=== PATIENT | male | born 1990 | race Caucasian/White ===

== ENCOUNTER → 2016-12-23 | Outpatient (REF) | payer OTHER | LOC: M SFHCLERA 20:39 | PROVIDERS: ATTEND Physician Assistant | DX: R30.0 Dysuria (principal); R31.9 Hematuria, unspecified ==

== ENCOUNTER 2017-03-13 14:51 | Emergency (ER) | payer OTHER ==
[~2017-03-13] VITALS: Ht 172.7 cm; Wt 68.0 kg
[2017-03-13] MEDS ORDERED: NORCO, ANEXSIA 5/325MG TABLET (HYDROcodone/ACETAMINOPHEN) PO ONE (15:30)
--- NOTE | 2017-03-13 16:22 | REP ---
RIGHT ANKLE SERIES, COMPLETE: 03/13/2017: History: Trauma. Technique: Four views are provided. Findings: There is soft tissue swelling about the anterior ankle. The mortise joint symmetric and preserved with no talar dome osteochondral defect. No visible fracture or avulsion from the distal tibia or fibula. There is a tiny amount of calcification suggested adjacent to the neck of the talus on one of the oblique views. I could not exclude small avulsion. There is no Achilles insertion spur. There are fractures at the base of the metatarsals proximally at the metaphysis for the 2nd, 3rd, and 4th toe with displacement and angulation of the 3rd toe. I could not exclude a Lisfranc fracture dislocation. Impression: 1. Tiny ossific density suggested adjacent to the neck of the talus on the oblique views with soft tissue swelling anterior to the ankle and foot. 2. Proximal metaphyseal fractures 2nd through 4th toes with a fracture and significant displacement of the 3rd metatarsal laterally. Standard foot series is strongly recommended. Signed by Del Lundy MD 03/13/2017 04:58 P
--- NOTE | 2017-03-13 16:33 | REP ---
RIGHT FOOT SERIES COMPLETE: 03/13/2017: COMPARISON: Right ankle series this date, right foot 07/21/2007. CLINICAL HISTORY: Trauma with pain and swelling about the ankle and foot. FINDINGS: There is soft tissue swelling of the mid and distal foot as well as about the hind foot and ankle dorsally. There is a displaced fracture of the proximal metaphysis of the 3rd metatarsal with half shaft with lateral displacement on this proximal head. This is also dorsally displaced. Nondisplaced fractures of the proximal metaphysis of the 2nd and 4th metatarsals are seen. There is a curvilinear lucency along the medial aspect of the first metatarsal at the TMT joint which could be a nondisplaced fracture. The MTP joints, IP joints, phalanges and tarsal bones and their articulations were grossly intact. No heel spurs are seen. No subtalar joint abnormalities. Tiny ossification at the dorsal aspect of the talar neck suggesting small avulsion. IMPRESSION: 1. Transverse displaced fracture of the proximal metaphysis of the 3rd metatarsal with about a half shaft width lateral displacement and dorsal displacement of the distal fragment in relationship to the proximal head of that 3rd metatarsal. 2. Nondisplaced, complete transverse fracture of the 2nd metatarsal metaphysis and incomplete fracture 4th metatarsal metaphysis. There may also be a small corner fracture at the articular aspect of the 1st metatarsal at the TMT joint on one view only. 3. Tiny avulsion over the dorsal aspect of the talus at its neck on the lateral view only. Signed by Del Lundy MD 03/13/2017 04:59 P
[2017-03-13] MEDS ORDERED: PERC5TAB6 PO ×2 (16:38→16:39)
[2017-03-13 16:48] VITALS: BP 152/86
== END 2017-03-13 16:57 | disposition home or self-care (01) ==
LOC: M ED 15:31
DX: S92.331A Displaced fracture of third metatarsal bone, right foot, initial encounter for closed fracture (principal); S92.324A Nondisplaced fracture of second metatarsal bone, right foot, initial encounter for closed fracture; S92.344A Nondisplaced fracture of fourth metatarsal bone, right foot, initial encounter for closed fracture; X50.9XXA Other and unspecified overexertion or strenuous movements or postures, initial encounter; Y92.019 Unspecified place in single-family (private) house as the place of occurrence of the external cause; Y93.89 Activity, other specified; Y99.8 Other external cause status

== ENCOUNTER 2017-03-16 08:57 | Inpatient (IN) | payer OTHER ==
[~2017-03-16] VITALS: Ht 172.7 cm; Wt 68.2 kg
[~2017-03-16 08:57] MED LIST: PERC5TAB6 PO
[2017-03-16 09:58] LABS: METHADONE URINE NEGATIVE (NEGATIVE)
[2017-03-16 10:01] LABS: MEAN CORPUSCULAR HEMOGLOBIN 32.8 pg (27.0-33.0); MEAN CORPUSCULAR VOLUME 91.1 fl (80.0-96.0); RED CELL DISTRIBUTION WIDTH 13.2 % (11.5-14.5); WHITE BLOOD COUNT 6.1 K/mm3 (4.0-10.0)
[2017-03-16 10:09] LABS: ALBUMIN 3.9 GM/DL (3.2-5.2); ALBUMIN/GLOBULIN RATIO 1.18 (1.00-1.93); ALKALINE PHOSPHATASE 87 U/L (45-117); ALT/SGPT 27 U/L (12-78); ANION GAP 9 MEQ/L (8-16); AST/SGOT 23 U/L (15-37); BILIRUBIN,DIRECT < 0.1 MG/DL (0.0-0.2); BILIRUBIN,TOTAL 0.3 MG/DL (0.2-1.0); BLOOD UREA NITROGEN 6 MG/DL (7-18); CALCIUM LEVEL 8.3 MG/DL (8.5-10.1); CARBON DIOXIDE LEVEL 26 MEQ/L (21-32); CHLORIDE LEVEL 106 MEQ/L (98-107); CREATININE FOR GFR 0.79 MG/DL (0.70-1.30); GLOMERULAR FILTRATION RATE > 60.0 (>60); GLUCOSE, FASTING 90 MG/DL (70-105); SODIUM LEVEL 141 MEQ/L (136-145); TOTAL PROTEIN 7.2 GM/DL (6.4-8.2)
--- NOTE | 2017-03-16 11:56 | REP ---
Right ankle series: Four views. History: Trauma. Findings: Four views of the right ankle demonstrate anterolateral swelling. On oblique radiograph, there are two tiny ossific densities adjacent to the anterior and lateral aspect of the talus unchanged from the March 13, 2017 study consistent with chip fractures. The proximal metatarsal fractures are poorly seen due to overlap on lateral radiograph. Ankle mortise is intact. No other ankle fracture is seen. Impression: Tiny chip fracture suspected in the anterolateral talus. Unchanged from March 13, 2017 study. Signed by Jonathan Omalley MD 03/16/2017 01:09 P
[2017-03-16] MEDS ORDERED: NAPROXEN 250 MG TAB PO ONE (15:45)
[2017-03-16] MEDS ORDERED: MOM 30ML SUSPENSION UDC PO PRN (19:30)
[2017-03-16] MEDS ORDERED: traZODone 50 MG TAB PO PRN (19:30)
[2017-03-16] MEDS ORDERED: MAALOX 30 ML SUSP *UDC PO PRN (19:30)
[2017-03-16] MEDS ORDERED: OXAZEPAM 15 MG CAP PO PRN (19:30)
[2017-03-16 20:38] VITALS: BP 129/84
[2017-03-16] MEDS: PERCOCET 5MG/325MG TAB PO PRN (20:38)
[2017-03-16 21:00] VITALS: BP 129/84
[2017-03-17 06:55] VITALS: BP 132/62
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
[2017-03-17] MEDS ORDERED: MUPIROCIN 2% OINT 22 GM TUBE TOP PRN (10:00)
[2017-03-17] MEDS: PERCOCET 5MG/325MG TAB PO PRN ×2 (13:01→18:31)
[2017-03-17 13:33] VITALS: BP 113/60
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
[2017-03-17 18:00] VITALS: BP 155/73
[2017-03-17] MEDS ORDERED: NAPROXEN 250 MG TAB PO SCH (21:00)
[2017-03-17] MEDS: NAPROXEN 250 MG TAB PO SCH (23:50)
[2017-03-18 06:46] VITALS: BP 112/63
--- NOTE | 2017-03-18 09:11 | MHIPNPDOC ---
[facility] Progress Note Progress Note DATE OF SERVICE: 03/18/17 HISTORY: Patient is a 27-year-old male, who who was brought to [facility] ED by police after neighbor discovered patient had knife and took it away from him and patient used car keys to cut himself multiple times to neck while intoxicated and, per ER report, also apparently informed police that he was suicidal. Patient has history of one prior admission in 04/2016 after intentional overdose on benzodiazepines and alcohol. [employer] met with patient today to assess treatment progress on inpatient unit. Patient indicates he is feeling "better," speaks with mildly pressured speech, reports improvement to symptoms of anxiety and depression, denies suicidal and homicidal ideation, denies audiovisual hallucinations, denies urge to engage in self-injurious behavior. [employer] makes attempts to discuss inpatient substance abuse treatment with patient who indicates he does not have a substance abuse problem but is willing to go to [facility] outpatient, indicates he is unwilling to participate in inpatient treatment. Patient is dismissive of brief writer, superficially compliant, minimizes substance abuse problem indicating "weed," which he smokes daily, "is not a drug so I don't have a problem with it." Patient denies symptoms of craving or withdrawal. Patient is attending groups, reports improvement to energy level, concentration and focus, indicates appetite is stable, and denies challenges with sleep. Patient has been noncompliant with instructions to keep foot elevated, reports increasing pain, was encouraged to follow instructions at PA who has evaluated. 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 Nursing was made aware of patient report of increasing pain level and was asked to ensure that PA is aware patient's status. VITALS: See below NEW TEST RESULTS: No new results PAST MEDICAL/SURGICAL HISTORY: Patient currently has fractured right foot and uses Aircast, ambulates with crutches. Patient denies history of chronic health issues, denies history of seizure or head injury. Labs on admission indicate low RBC, Hgb, HCT, BUN, calcium UDS positive for amphetamine, cocaine, cannabinoids, denies craving or withdrawal symptoms EtOH 0.169 EKG pending CURRENT MEDICATIONS: See below, patient is declining psychotropic medications MENTAL STATUS EXAMINATION: General appearance: Patient is a 27-year-old male who is generally cooperative but remains guarded and evasive, makes poor eye contact, appears disheveled, dressed in hospital clothing, ambulates with crutches due to fractured right foot, exhibits steady gait with crutches, appears stated age. Speech: Mildly pressured, normal rhythm, loud volume at times, spontaneous, coherent Thought processes: Linear, goal-directed, generally logical Thought content: Rational, logical, no tangentiality or paranoia noted Abstract reasoning and computation: Requires further evaluation Description of associations: Intact Description of abnormal or psychotic thoughts: Denies suicidal or homicidal ideation, denies auditory or visual hallucinations, does not appear to be responding to internal stimuli, does not endorse bizarre or paranoid ideation, denies preoccupation with violence or obsessions Judgment: Poor Insight: Poor Orientation: A and O 3 Recent and remote memory: Appears intact Attention span and concentration: Appear adequate Fund of knowledge: Requires further evaluation Mood: "Fine." Patient appears anxious and depressed, mild mood lability noted Affect: Constricted. DIAGNOSES: Unspecified mood disorder, polysubstance use disorder. Rule out bipolar disorder, rule out substance-induced mood disorder, rule out ADHD. ASSESSMENT: Patient appears to be adjusting to unit, is observed to be up out of bed today, attending groups, visible on unit. Patient reports increasing pain to foot, has not been compliant with foot treatment recommendations, PA has been made aware. Patient remains superficial in his interactions, minimizes events and behavior which led to current hospitalization, minimizes substance abuse, indicates he does not feel he really needs substance abuse treatment. Medication options were again reviewed with patient who is declining psychotropic medications at this time citing lack of need. Patient remains aware he has medication available to him for withdrawal or cravings symptoms which he is denying, and sleep medication if needed. Will continue to monitor patient's response to the inpatient environment and social security specialist will continue to pursue collateral information to begin making discharge plans. Will also evaluate patient for safety, resolution of suicidal ideation, and discharge readiness. Patient states when prepared for discharge he plans to return home with girlfriend. Patient denies need for inpatient substance abuse treatment but is agreeable to participating in outpatient [facility] for psychotherapy and substance abuse treatment, states he is also interested in couples counseling with his girlfriend to address relationship stressors. MANAGEMENT PLAN: Encourage patient to consider taking psychotropic medication to address symptoms Maintain safety precautions Patient to attend groups and participate in unit programming to develop coping strategies Engage patient in discharge planning process and arrange meeting with command to evaluate safe discharge planning when appropriate Patient to follow up with Roberto Sifuentes PCM upon discharge TIME SPENT: 35 minutes Vital Signs Vital Signs Date Time Temp Pulse Resp B/P (MAP) Pulse Ox O2 Delivery O2 Flow Rate FiO2 03/18/17 06:46 97.9 63 16 112/63 (79) 03/16/17 21:00 97 Room Air Current Medications Current Medications Acetaminophen (Tylenol Tab) 650 mg Q6HP PRN PO HEADACHE or DISCOMFORT; Start at 19:30; Stop 04/15/17 at 19:29 Al Hydrox/Mg Hydrox/Simethicone (Mylanta) 30 ml Q4HP PRN PO HEARTBURN/ INDIGESTION; Start 03/16/17 at 19:30; Stop 04/15/17 at 19:29 Home Med (Med Rec Complete!) ASDIRECTED XX ; Start 03/16/17 at 13:15; Stop at 13:16; Status DC Magnesium Hydroxide (Milk Of Magnesia) 30 ml DAILYPRN PRN PO CONSTIPATION; Start 03/16/17 at 19:30; Stop 04/15/17 at 19:29 Mupirocin (Bactroban 2% Ointment) left neck lacerations BID PRN TOP REDNESS/ IRRITATION; Start 03/17/17 at 10:00; Stop 04/16/17 at 09:59 Naproxen (Naprosyn) 500 mg BID PO ; Start 03/17/17 at 21:00; Stop 03/17/17 at 23 :04; Status DC Naproxen (Naprosyn) 500 mg BID PO Last administered on 03/17/17t 23:50; Start 03/17/17 at 21:00; Stop 03/18/17 at 09:30 Oxazepam (Serax) 30 mg Q4HP PRN PO WITHDRAWLS; Start 03/16/17 at 19:30; Stop at 19:29 Oxycodone/ Acetaminophen (Percocet 5mg/ 325mg Tablet) 1 tab TIDP PRN PO MILD/ MODERATE PAIN (PS 1-7) Last administered on 03/17/17 18:31; Start 03/16/17 at 19:30; Stop 5/24/17 at 19:30 Trazodone HCl (Desyrel) 50 mg QHSP PRN PO INSOMNIA; Start 03/16/17 at 19:30; Stop 04/15/17 at 19:29 Allergies Coded Allergies: No Known Drug Allergy (Verified Allergy, Unknown, 03/13/17) Patricia Mata March 18, 2017 09:11
[2017-03-18 12:00] VITALS: BP 137/66
[2017-03-18] MEDS: NAPROXEN 250 MG TAB PO SCH (12:00)
[2017-03-18] MEDS: PERCOCET 5MG/325MG TAB PO PRN (12:00)
[2017-03-18] MEDS: IBUPROFEN 400 MG TAB PO PRN (16:21)
[2017-03-18 18:00] VITALS: BP 129/72
[2017-03-18 21:00] VITALS: BP 128/76
[2017-03-19] MEDS: ACETAMINOPHEN TAB 650MG DOSE (2X325MG) PO PRN ×3 (04:45→22:07)
[2017-03-19] MEDS: IBUPROFEN 400 MG TAB PO PRN ×3 (04:46→22:07)
[2017-03-19 06:50] VITALS: BP 120/58
--- NOTE | 2017-03-19 10:39 | IPNPDOC ---
Subjective Date Seen The patient was seen on 03/19/17. Subjective Chief Complaint/HPI The patient is a 27-year-old male admitted with a reason for visit of Unspecified Depressive D/O. Events since last encounter Requested to reevaluate the patient in regards to right foot edema. Patient with history of right foot fracture. Patient states his pain is controlled. He has not had any increased edema from baseline. He does notice more if he is on his feet for a long time or if he is not elevating the right lower extremity. No erythema, skin lesions. Patient states he continues to wear the Aircast. He uses crutches. Patient with no verbalized complaints. Anticipated discharge tomorrow a.m. Objective Physical Examination General Exam: Positive: Alert Eye Exam: Positive: PERRLA ENT Exam: Positive: Atraumatic Chest Exam: Positive: Clear to auscultation, Normal air movement Heart Exam: Positive: Rate Normal, Regular Rhythm, Normal S1, Normal S2, Negative: Murmurs, Rubs Skin Exam: Positive: Nl turgor and temperature, Other skin issue (mild erythema is noted in the right foot, air cast is applied this time. No erythema or skin lesions. No calf tenderness or swelling.) Assessment /Plan Problems (1) Fracture of metatarsal of right foot, closed Status: Acute Response to Treatment: Stable Problem Text: * Continue Aircast with sock. * Continue ambulation with crutches. * Spoke with Naheed Herrera NP at time of admission, recommendation to continue same and reschedule orthopedic appointment at discharge. * Plan is to reschedule orthopedic appointment for Thursday afternoon or early next week. * Patient is aware. * Discharge planning aware. Plan/VTE VTE Prophylaxis Ordered?: No (ambulatory) VS, I&O, 24H, Fishbone Vital Signs/I&O Vital Signs Date Time Temp Pulse Resp B/P (MAP) Pulse Ox O2 Delivery O2 Flow Rate FiO2 03/19/17 06:50 98.2 62 16 120/58 (78) 03/18/17 18:00 Room Air 03/16/17 21:00 97 Marixa Westbrook March 19, 2017 10:39
--- NOTE | 2017-03-19 12:12 | MHIPNPDOC ---
[facility] Progress Note Progress Note DATE OF SERVICE: 03/19/17 HISTORY: Patient is a 27-year-old male, who who was brought to [facility] ED by police after neighbor discovered patient had knife and took it away from him and patient used car keys to cut himself multiple times to neck while intoxicated and, per ER report, also apparently informed police that he was suicidal. Patient has history of one prior admission in 04/2016 after intentional overdose on benzodiazepines and alcohol. [facility] met with patient today to assess treatment progress on inpatient unit. Patient denies symptoms of anxiety and depression, denies suicidal and homicidal ideation, denies audiovisual hallucinations, denies urge to engage in self-injurious behavior. [facility] again makes attempts to discuss inpatient substance abuse treatment with patient who indicates he does not have a substance abuse problem but is willing to go to [facility] outpatient, indicates he is unwilling to participate in inpatient substance abuse treatment. Patient remains superficially compliant, is minimizing substance abuse last today and indicates he intends to discontinue alcohol and drug use. Patient denies symptoms of craving or withdrawal. Patient is attending groups, reports improvement to energy level, concentration and focus, indicates appetite is stable, and denies challenges with sleep. Patient has been more compliant today with instructions to keep foot elevated, reports reduced pain, was encouraged to follow instructions of PA who has evaluated. Patient was reevaluated today by PA with recommendation for follow-up with orthopedics upon discharge. VITALS: See below NEW TEST RESULTS: No new results PAST MEDICAL/SURGICAL HISTORY: Patient currently has fractured right foot and uses Aircast, ambulates with crutches. Patient denies history of chronic health issues, denies history of seizure or head injury. Labs on admission indicate low RBC, Hgb, HCT, BUN, calcium UDS positive for amphetamine, cocaine, cannabinoids, denies craving or withdrawal symptoms EtOH 0.169 03/19/17 EKG Normal sinus rhythm Early repolarization Within normal limits for age Slower rate compared with 04/26/16 CURRENT MEDICATIONS: See below, patient is declining psychotropic medications MENTAL STATUS EXAMINATION: General appearance: Patient is a 27-year-old male who is generally cooperative, is less evasive, makes improved eye contact, exhibits adequate personal hygiene , dressed in hospital clothing, ambulates with crutches due to fractured right foot, exhibits steady gait with crutches, appears stated age. Speech: Of normal rate, rhythm, volume, spontaneous, coherent, no rapid or pressured speech noted today Thought processes: Linear, goal-directed, generally logical Thought content: Rational, logical, no tangentiality or paranoia noted Abstract reasoning and computation: Requires further evaluation Description of associations: Intact Description of abnormal or psychotic thoughts: Denies suicidal or homicidal ideation, denies auditory or visual hallucinations, does not appear to be responding to internal stimuli, does not endorse bizarre or paranoid ideation, denies preoccupation with violence or obsessions Judgment: Limited Insight: Limited Orientation: A and O 3 Recent and remote memory: Appears intact Attention span and concentration: Adequate Fund of knowledge: Adequate Mood: "I feel good." Patient denies anxiety and depression, no mood lability noted Affect: Full range, brightens frequently and appropriately, congruent with mood. DIAGNOSES: Polysubstance use disorder, rule out substance-induced mood disorder , rule out bipolar disorder, rule out ADHD. ASSESSMENT: Patient appears to be adjusting to unit, is observed to be up out of bed today, attending groups, visible on unit. Patient reports reduced pain to foot, has been instructed to follow-up with orthopedics upon discharge. Patient is more genuine in his interactions with the exception of topic of substance abuse, on which he remains superficial and continues to minimize events and behavior which led to current hospitalization, minimizes substance abuse and has indicated he intends to attend [facility] and discontinue drug and alcohol use. Patient denies symptoms of craving or withdrawal. Medication options have been reviewed with patient again today and he continues to decline need for psychotropic medication, states he has taken trazodone 1 during stay as result of noise on unit, denies need for medication at home. Family meeting was completed with patient's mother and fianc who deny having concerns related to patient's discharge and return to home. Patient is aware that discharge is tentatively scheduled for tomorrow. Will continue to monitor patient's response to the inpatient environment and prepare patient for discharge. Patient states when prepared for discharge he plans to return home with girlfriend. Patient denies need for inpatient substance abuse treatment but remains agreeable to participating in outpatient [facility] for psychotherapy and substance abuse treatment, states he is also interested in couples counseling with his girlfriend to address relationship stressors. customer solutions coordinator/nursing has been instructed by MERARI to schedule outpatient orthopedics appointment for tomorrow after discharge. MANAGEMENT PLAN: Patient is declining psychotropic medications Maintain safety precautions Patient to attend groups and participate in unit programming to develop coping strategies Engage patient in discharge planning process and arrange meeting with support system to ensure safe discharge planning when appropriate Patient to follow up with PCM and orthopedics upon discharge TIME SPENT: 35 minutes Vital Signs Vital Signs Date Time Temp Pulse Resp B/P (MAP) Pulse Ox O2 Delivery O2 Flow Rate FiO2 03/19/17 06:50 98.2 62 16 120/58 (78) 03/18/17 18:00 Room Air 03/16/17 21:00 97 Current Medications Current Medications Acetaminophen (Tylenol Tab) 650 mg Q6HP PRN PO HEADACHE or DISCOMFORT Last administered on 03/19/17 04:45; Start 03/16/17 at 19:30; Stop 04/15/17 at 19:29 Al Hydrox/Mg Hydrox/Simethicone (Mylanta) 30 ml Q4HP PRN PO HEARTBURN/ INDIGESTION; Start 03/16/17 at 19:30; Stop 04/15/17 at 19:29 Home Med (Med Rec Complete!) ASDIRECTED XX ; Start 03/16/17 at 13:15; Stop at 13:16; Status DC Ibuprofen (Advil) 400 mg Q8HP PRN PO PAIN Last administered on 03/19/17 04:46 ; Start 03/18/17 at 16:15; Stop 04/17/17 at 16:14 Magnesium Hydroxide (Milk Of Magnesia) 30 ml DAILYPRN PRN PO CONSTIPATION; Start 03/16/17 at 19:30; Stop 04/15/17 at 19:29 Mupirocin (Bactroban 2% Ointment) left neck lacerations BID PRN TOP REDNESS/ IRRITATION; Start 03/17/17 at 10:00; Stop 04/16/17 at 09:59 Naproxen (Naprosyn) 500 mg BID PO ; Start 03/17/17 at 21:00; Stop 03/17/17 at 23 :04; Status DC Naproxen (Naprosyn) 500 mg BID PO Last administered on 03/18/17 12:00; Start 03/17/17 at 21:00; Stop 03/18/17 at 09:30; Status DC Oxazepam (Serax) 30 mg Q4HP PRN PO WITHDRAWLS; Start 03/16/17 at 19:30; Stop at 19:29 Oxycodone/ Acetaminophen (Percocet 5mg/ 325mg Tablet) 1 tab TIDP PRN PO MILD/ MODERATE PAIN (PS 1-7) Last administered on 03/18/17 12:00; Start 03/16/17 at 19:30; Stop 03/18/17 at 19:30; Status DC Trazodone HCl (Desyrel) 50 mg QHSP PRN PO INSOMNIA Last administered on 21:43; Start 03/16/17 at 19:30; Stop 04/15/17 at 19:29 Allergies Coded Allergies: No Known Drug Allergy (Verified Allergy, Unknown, 03/13/17) Patricia Mata March 19, 2017 12:12
--- NOTE | 2017-03-19 14:33 | ECGEPIP ---
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
[2017-03-19 18:00] VITALS: BP 157/69
[2017-03-20] MEDS: ACETAMINOPHEN TAB 650MG DOSE (2X325MG) PO PRN (04:10)
[2017-03-20 07:01] VITALS: BP 139/88
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
[2017-03-20] MEDS ORDERED: IBUP40TA PO (09:50)
[2017-03-20] MEDS ORDERED: MUPI2OI TOP (09:50)
== END 2017-03-20 10:05 | disposition home or self-care (01) | DRG 753 ==
LOC: M ED 10:06 → M ED INP 16:29 → M PSY 18:59
PROVIDERS: ADMIT Psychiatry & Neurology Psychiatry; ATTEND Psychiatry & Neurology Psychiatry
DX: F31.9 Bipolar disorder, unspecified (principal); F14.10 Cocaine abuse, uncomplicated; F12.10 Cannabis abuse, uncomplicated; F10.10 Alcohol abuse, uncomplicated; F90.9 Attention-deficit hyperactivity disorder, unspecified type; F17.210 Nicotine dependence, cigarettes, uncomplicated; F19.14 Other psychoactive substance abuse with psychoactive substance-induced mood disorder; Z91.5 Personal history of self-harm; S92.301D Fracture of unspecified metatarsal bone(s), right foot, subsequent encounter for fracture with routine healing; X50.1XXD Overexertion from prolonged static or awkward postures, subsequent encounter; Y92.89 Other specified places as the place of occurrence of the external cause

== ENCOUNTER 2017-12-29 09:21 | Inpatient (IN) | payer MEDICAID, OTHER ==
[2017-12-29] MEDS ORDERED: MOM 30ML SUSPENSION UDC PO (13:15)
[2017-12-29] MEDS ORDERED: traZODone 50 MG TAB PO (13:15)
[2017-12-29] MEDS ORDERED: ACETAMINOPHEN TAB 650MG DOSE (2X325MG) PO (13:15)
[2017-12-29] MEDS ORDERED: MAALOX 30 ML SUSP *UDC PO (13:15)
== END 2017-12-30 15:23 | disposition home or self-care (01) | DRG 880 ==
LOC: M ED 09:21 → M ED INP 13:06 → M PSY 14:44
PROVIDERS: Psychiatry & Neurology Psychiatry
DX: F41.1 Generalized anxiety disorder (principal); F32.9 Major depressive disorder, single episode, unspecified; F10.10 Alcohol abuse, uncomplicated; F19.10 Other psychoactive substance abuse, uncomplicated; F17.210 Nicotine dependence, cigarettes, uncomplicated; Z91.5 Personal history of self-harm; Z81.8 Family history of other mental and behavioral disorders

== ENCOUNTER → 2018-04-30 | Outpatient (CLI) | payer MEDICAID | LOC: M OUTALCOH 09:17 | DX: Z13.9 Encounter for screening, unspecified (principal); F12.20 Cannabis dependence, uncomplicated; F15.20 Other stimulant dependence, uncomplicated ==

== ENCOUNTER 2018-05-06 10:23 | Outpatient (RCR) | payer MEDICAID | END 2018-05-25 | LOC: M OUTALCOH 05-11 16:00 | DX: F19.20 Other psychoactive substance dependence, uncomplicated (principal); F12.20 Cannabis dependence, uncomplicated ==

== ENCOUNTER → 2018-10-04 | Outpatient (CLI) | payer MEDICAID | LOC: M OUTALCOH 13:54 | DX: Z13.9 Encounter for screening, unspecified (principal); F12.20 Cannabis dependence, uncomplicated ==

== ENCOUNTER 2018-10-22 14:00 | Outpatient (RCR) | payer MEDICAID ==
[~2018-10-22 14:00] MED LIST changes: +IBUP40TA PO; +IBUPOTC PO; +MUPI2OI TOP; +PERC5TAB12 PO; -PERC5TAB6 PO
== END 2018-10-25 ==
LOC: M OUTALCOH 14:00
PROVIDERS: ATTEND Psychiatry & Neurology Psychiatry
DX: F19.20 Other psychoactive substance dependence, uncomplicated (principal); F12.20 Cannabis dependence, uncomplicated

== ENCOUNTER → 2018-12-07 | Outpatient (CLI) | payer OTHER ==
--- NOTE | 2018-12-07 18:27 | REP ---
Unilateral left ribs PA chest five views History: Rib pain The lungs are clear. The heart is normal in size. The pulmonary vasculature is normal in appearance. The bony structure is intact. Portion: No acute disease. Electronically Signed by Angel Colmenares MD 12/07/2018 06:18 P
== END ==
LOC: M LRY 17:57
PROVIDERS: ATTEND Nurse Practitioner Family
DX: R07.81 Pleurodynia (principal)

== ENCOUNTER → 2019-01-25 | Outpatient (CLI) | payer MEDICAID | LOC: M OUTALCOH 09:13 | PROVIDERS: ATTEND Psychiatry & Neurology Psychiatry | DX: Z13.89 Encounter for screening for other disorder (principal); F12.20 Cannabis dependence, uncomplicated ==

== ENCOUNTER → 2019-06-07 | Outpatient (CLI) | payer OTHER ==
[2019-06-07 17:09] LABS: BLOOD UREA NITROGEN 7 MG/DL (7-18); CALCIUM LEVEL 8.5 MG/DL (8.5-10.1); CARBON DIOXIDE LEVEL 31 MEQ/L (21-32); CHLORIDE LEVEL 108 MEQ/L (98-107); CPK CREATINE PHOSPHOKINASE 93 U/L (39-308); CREATININE FOR GFR 0.72 MG/DL (0.70-1.30); GLOMERULAR FILTRATION RATE > 60.0 (>60); GLUCOSE, FASTING 94 MG/DL (70-100); POTASSIUM SERUM 4.2 MEQ/L (3.5-5.1); SODIUM LEVEL 144 MEQ/L (136-145)
== END ==
LOC: M LAB 16:16
PROVIDERS: ATTEND Internal Medicine
DX: M62.82 Rhabdomyolysis (principal); F14.10 Cocaine abuse, uncomplicated

== ENCOUNTER 2019-06-22 11:40 | Emergency (ER) | payer OTHER ==
[~2019-06-22] VITALS: Ht 172.7 cm; Wt 68.2 kg
[2019-06-22 11:41] VITALS: BP 162/100
== END 2019-06-22 13:25 | disposition left against medical advice (07) ==
LOC: M ED 11:40
DX: Z53.21 Procedure and treatment not carried out due to patient leaving prior to being seen by health care provider (principal)

== ENCOUNTER 2019-11-28 13:06 | Emergency (ER) | payer OTHER ==
[~2019-11-28] VITALS: Ht 172.7 cm; Wt 65.9 kg
[2019-11-28 17:33] LABS: HEMATOCRIT 42.7 % (42.0-52.0); HEMOGLOBIN 14.9 g/dl (13.5-17.5); MEAN CORPUSCULAR HEMOGLOBIN 31.8 pg (27.0-33.0); MEAN CORPUSCULAR HGB CONC 34.9 g/dl (32.0-36.5); PLATELET COUNT, AUTOMATED 257 10^3/uL (150-450); RED BLOOD COUNT 4.69 10^6/uL (4.30-6.10); WHITE BLOOD COUNT 4.5 10^3/uL (4.0-10.0)
[2019-11-28 18:11] LABS: ACETAMINOPHEN LEVEL < 2.0 UG/ML (10.0-30.0); ALBUMIN 4.8 GM/DL (3.2-5.2); ALT/SGPT 279 U/L (12-78); BILIRUBIN,DIRECT 0.3 MG/DL (0.0-0.2); BILIRUBIN,TOTAL 0.8 MG/DL (0.2-1.0); BLOOD UREA NITROGEN 5 MG/DL (7-18); CALCIUM LEVEL 9.2 MG/DL (8.5-10.1); CARBON DIOXIDE LEVEL 30 MEQ/L (21-32); CHLORIDE LEVEL 102 MEQ/L (98-107); CREATININE FOR GFR 0.75 MG/DL (0.70-1.30); ETHYL ALCOHOL (ETHANOL) < 0.003 % (0.000-0.010); GLOMERULAR FILTRATION RATE > 60.0 (>60); GLUCOSE, FASTING 102 MG/DL (70-100); POTASSIUM SERUM 3.1 MEQ/L (3.5-5.1); SALICYLATE LEVEL < 1.7 MG/DL (5.0-30.0); SODIUM LEVEL 140 MEQ/L (136-145); TOTAL PROTEIN 7.8 GM/DL (6.4-8.2)
[2019-11-28 18:24] LABS: AMPHETAMINES LEVEL URINE POSITIVE (NEGATIVE); BARBITURATES URINE NEGATIVE (NEGATIVE); BENZODIAZEPINES URINE NEGATIVE (NEGATIVE); CANNABINOIDS URINE POSITIVE (NEGATIVE); COCAINE METABOLITE URINE NEGATIVE (NEGATIVE); METHADONE URINE NEGATIVE (NEGATIVE); OPIATES URINE NEGATIVE (NEGATIVE); PHENCYCLIDINE URINE NEGATIVE (NEGATIVE)
[2019-11-28 21:12] VITALS: BP 168/95
== END 2019-11-28 21:14 | disposition home or self-care (01) ==
LOC: M ED 13:06
DX: F15.10 Other stimulant abuse, uncomplicated (principal)
CPT/HCPCS: 36415; 80048; 80076; 80307; 84443; 85027; 99284; G0480

== ENCOUNTER 2019-11-30 11:13 | Emergency (ER) | payer OTHER | END 2019-11-30 12:53 | disposition left against medical advice (07) | LOC: M ED 11:13 | DX: Z53.29 Procedure and treatment not carried out because of patient's decision for other reasons (principal) ==

== ENCOUNTER 2019-11-30 15:09 | Emergency (ER) | payer OTHER ==
[~2019-11-30] VITALS: Ht 172.7 cm; Wt 68.2 kg
[2019-11-30 15:52] LABS: HEMATOCRIT 45.3 % (42.0-52.0); HEMOGLOBIN 15.7 g/dl (13.5-17.5); MEAN CORPUSCULAR HGB CONC 34.7 g/dl (32.0-36.5); MEAN CORPUSCULAR VOLUME 92.4 fl (80.0-96.0); PLATELET COUNT, AUTOMATED 291 10^3/uL (150-450); WHITE BLOOD COUNT 8.7 10^3/uL (4.0-10.0)
[2019-11-30 16:23] LABS: AMPHETAMINES LEVEL URINE POSITIVE (NEGATIVE); BARBITURATES URINE NEGATIVE (NEGATIVE); BENZODIAZEPINES URINE NEGATIVE (NEGATIVE); CANNABINOIDS URINE POSITIVE (NEGATIVE); COCAINE METABOLITE URINE NEGATIVE (NEGATIVE); METHADONE URINE NEGATIVE (NEGATIVE); OPIATES URINE NEGATIVE (NEGATIVE); PHENCYCLIDINE URINE NEGATIVE (NEGATIVE)
[2019-11-30 16:39] LABS: ACETAMINOPHEN LEVEL < 2.0 UG/ML (10.0-30.0); ALBUMIN 5.1 GM/DL (3.2-5.2); ALT/SGPT 302 U/L (12-78); BILIRUBIN,DIRECT 0.5 MG/DL (0.0-0.2); BILIRUBIN,TOTAL 1.4 MG/DL (0.2-1.0); BLOOD UREA NITROGEN 15 MG/DL (7-18); CALCIUM LEVEL 9.6 MG/DL (8.5-10.1); CARBON DIOXIDE LEVEL 29 MEQ/L (21-32); CHLORIDE LEVEL 102 MEQ/L (98-107); CREATININE FOR GFR 0.94 MG/DL (0.70-1.30); ETHYL ALCOHOL (ETHANOL) < 0.003 % (0.000-0.010); GLOMERULAR FILTRATION RATE > 60.0 (>60); GLUCOSE, FASTING 79 MG/DL (70-100); POTASSIUM SERUM 4.8 MEQ/L (3.5-5.1); SALICYLATE LEVEL < 1.7 MG/DL (5.0-30.0); SODIUM LEVEL 138 MEQ/L (136-145); THYROID STIMULATING HORMONE 0.883 uIU/ML (0.358-3.740); TOTAL PROTEIN 8.5 GM/DL (6.4-8.2)
[2019-11-30] MEDS ORDERED: OLANZapine ORAL DISINTEGRATING TAB 5MG PO ONE (16:45)
[2019-11-30 18:54] VITALS: BP 131/70
[2019-12-02 10:48] LABS: HEPATITIS B SURFACE ANTIGEN NEGATIVE (NEGATIVE)
[2019-12-02 11:16] LABS: HEPATITIS B CORE ANTIBODY IGM NEGATIVE (NEGATIVE)
[2019-12-02 11:18] LABS: HEPATITIS A ANTIBODY IGM NEGATIVE (NEGATIVE)
[2019-12-02 11:45] LABS: HEPATITIS C VIRUS ABY INDEX > 11.0 INDEX (<0.8)
== END 2019-11-30 19:01 | disposition home or self-care (01) ==
LOC: M ED 15:09
DX: F12.10 Cannabis abuse, uncomplicated (principal); F15.10 Other stimulant abuse, uncomplicated; F33.9 Major depressive disorder, recurrent, unspecified; F17.210 Nicotine dependence, cigarettes, uncomplicated
CPT/HCPCS: 36415; 80048; 80076; 80307; 84443; 85027; 86705; 86709; 86803; 87340; 87521; 99284; G0480

== ENCOUNTER 2019-12-05 04:09 | Emergency (ER) | payer OTHER ==
[~2019-12-05] VITALS: Ht 172.7 cm; Wt 65.9 kg
[2019-12-05 04:49] LABS: HEMATOCRIT 40.6 % (42.0-52.0); HEMOGLOBIN 14.2 g/dl (13.5-17.5); MEAN CORPUSCULAR VOLUME 91.4 fl (80.0-96.0); PLATELET COUNT, AUTOMATED 226 10^3/uL (150-450); RED BLOOD COUNT 4.44 10^6/uL (4.30-6.10); WHITE BLOOD COUNT 4.1 10^3/uL (4.0-10.0)
[2019-12-05 05:24] LABS: ACETAMINOPHEN LEVEL 2.8 UG/ML (10.0-30.0); ALBUMIN 4.1 GM/DL (3.2-5.2); ALT/SGPT 259 U/L (12-78); BILIRUBIN,DIRECT 0.2 MG/DL (0.0-0.2); BILIRUBIN,TOTAL 0.7 MG/DL (0.2-1.0); BLOOD UREA NITROGEN 5 MG/DL (7-18); CALCIUM LEVEL 8.7 MG/DL (8.5-10.1); CARBON DIOXIDE LEVEL 31 MEQ/L (21-32); CHLORIDE LEVEL 104 MEQ/L (98-107); CREATININE FOR GFR 0.72 MG/DL (0.70-1.30); ETHYL ALCOHOL (ETHANOL) 0.042 % (0.000-0.010); GLOMERULAR FILTRATION RATE > 60.0 (>60); GLUCOSE, FASTING 82 MG/DL (70-100); POTASSIUM SERUM 3.6 MEQ/L (3.5-5.1); SALICYLATE LEVEL < 1.7 MG/DL (5.0-30.0); SODIUM LEVEL 140 MEQ/L (136-145); TOTAL PROTEIN 7.1 GM/DL (6.4-8.2)
[2019-12-05 05:43] LABS: AMPHETAMINES LEVEL URINE POSITIVE (NEGATIVE); BARBITURATES URINE NEGATIVE (NEGATIVE); BENZODIAZEPINES URINE NEGATIVE (NEGATIVE); CANNABINOIDS URINE POSITIVE (NEGATIVE); COCAINE METABOLITE URINE NEGATIVE (NEGATIVE); METHADONE URINE NEGATIVE (NEGATIVE); OPIATES URINE NEGATIVE (NEGATIVE); PHENCYCLIDINE URINE NEGATIVE (NEGATIVE)
[2019-12-05 06:36] VITALS: BP 137/89
== END 2019-12-05 06:48 | disposition home or self-care (01) ==
LOC: M ED 04:09
DX: F19.10 Other psychoactive substance abuse, uncomplicated (principal)
CPT/HCPCS: 36415; 80048; 80076; 80307; 84443; 85027; 99284; G0480

== ENCOUNTER 2019-12-05 07:54 | Inpatient (IN) | payer MEDICAID, OTHER ==
[~2019-12-05] VITALS: Ht 172.7 cm; Wt 63.8 kg
[2019-12-05] MEDS ORDERED: LORazepam 2 MG/ML VIAL (J2060) IV STA ×2 (10:03→11:47)
--- NOTE | 2019-12-05 10:30 | REP ---
Clinical: Altered mental status . Comparison: 03/30/2014 . Findings: The ventricles, sulci, and cisterns are normal in position and appearance. Agustin-white differentiation is maintained. No acute intracranial hemorrhage, mass/mass effect, pathology or trauma/injury. No evidence for acute infarction. No extra-axial fluid collection. Calvarium is intact. Paranasal sinuses and mastoid air cells are clear. Impression: Normal noncontrast head CT. No evidence for acute intracranial pathology or trauma/injury. Electronically Signed by Shalom Nails MD 12/05/2019 10:21 A
--- NOTE | 2019-12-05 10:56 | REP ---
Clinical: Altered mental status . Comparison: 12/07/2018 . Findings: The mediastinum and cardiac silhouette are stable and within normal limits for portable technique. The lung harman are clear without acute consolidation, effusion, or pneumothorax. Skeletal structures are intact. Impression: No acute cardiopulmonary process appreciated. Electronically Signed by Shalom Nails MD 12/05/2019 10:47 A
[2019-12-05] MEDS ORDERED: NS 1,000 ML IV ONE (11:00)
[2019-12-05 11:01] LABS: BASO % 0.8 % (0.0-1.0); EOS # 0.1 10^3/uL (0.0-0.5); EOS % 2.5 % (0.0-3.0); HEMATOCRIT 43.7 % (42.0-52.0); HEMOGLOBIN 15.4 g/dl (13.5-17.5); LYMPH # 1.6 10^3/uL (1.5-5.0); LYMPH % 42.9 % (24.0-44.0); MEAN CORPUSCULAR HEMOGLOBIN 32.7 pg (27.0-33.0); MEAN CORPUSCULAR HGB CONC 35.2 g/dl (32.0-36.5); MEAN CORPUSCULAR VOLUME 92.8 fl (80.0-96.0); MONO # 0.4 10^3/uL (0.0-0.8); MONO % 11.5 % (0.0-5.0); NEUTROPHILS # 1.5 10^3/uL (1.5-8.5); PLATELET COUNT, AUTOMATED 258 10^3/uL (150-450); RED BLOOD COUNT 4.71 10^6/uL (4.30-6.10); WHITE BLOOD COUNT 3.6 10^3/uL (4.0-10.0)
[2019-12-05 11:37] LABS: ACETAMINOPHEN LEVEL < 2.0 UG/ML (10.0-30.0); ALBUMIN 4.5 GM/DL (3.2-5.2); ALT/SGPT 273 U/L (12-78); BILIRUBIN,DIRECT 0.3 MG/DL (0.0-0.2); BILIRUBIN,TOTAL 0.8 MG/DL (0.2-1.0); BLOOD UREA NITROGEN 6 MG/DL (7-18); CALCIUM LEVEL 9.7 MG/DL (8.5-10.1); CARBON DIOXIDE LEVEL 33 MEQ/L (21-32); CHLORIDE LEVEL 102 MEQ/L (98-107); CPK CREATINE PHOSPHOKINASE 147 U/L (39-308); CREATININE FOR GFR 0.78 MG/DL (0.70-1.30); ETHYL ALCOHOL (ETHANOL) < 0.003 % (0.000-0.010); GLOMERULAR FILTRATION RATE > 60.0 (>60); GLUCOSE, FASTING 66 MG/DL (70-100); MB/CK RELATIVE INDEX 0.68 (< OR =4); POTASSIUM SERUM 3.7 MEQ/L (3.5-5.1); SALICYLATE LEVEL < 1.7 MG/DL (5.0-30.0); SODIUM LEVEL 140 MEQ/L (136-145); TOTAL PROTEIN 7.6 GM/DL (6.4-8.2); TROPONIN I < 0.02 NG/ML (< 0.10)
[2019-12-05 12:33] LABS: AMPHETAMINES LEVEL URINE POSITIVE (NEGATIVE); BARBITURATES URINE NEGATIVE (NEGATIVE); BENZODIAZEPINES URINE NEGATIVE (NEGATIVE); CANNABINOIDS URINE POSITIVE (NEGATIVE); COCAINE METABOLITE URINE NEGATIVE (NEGATIVE); METHADONE URINE NEGATIVE (NEGATIVE); OPIATES URINE NEGATIVE (NEGATIVE); PHENCYCLIDINE URINE NEGATIVE (NEGATIVE)
--- NOTE | 2019-12-05 19:42 | ECGEPIP ---
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
[2019-12-05] MEDS ORDERED: LORazepam 1 MG TAB PO PRN (21:30)
[2019-12-05] MEDS ORDERED: traZODone 50 MG TAB PO PRN (21:30)
[2019-12-05] MEDS ORDERED: MAALOX 30 ML SUSP *UDC PO PRN (21:30)
[2019-12-05] MEDS ORDERED: MOM 30ML SUSPENSION UDC PO PRN (21:30)
[2019-12-05] MEDS ORDERED: ACETAMINOPHEN TAB 650MG DOSE (2X325MG) PO PRN (21:30)
[2019-12-05] MEDS ORDERED: OLANZapine ORAL DISINTEGRATING TAB 5MG PO ONE (23:30)
[2019-12-06 06:24] VITALS: BP 107/55
--- NOTE | 2019-12-06 10:36 | MHHPEPDOC ---
[facility] History & Physical History and Physical DATE OF ADMISSION: Dec 05, 2019 at 21:17 New Patient Jose Damon MRN: N/[id number] Date of : N/A Date of Service: 12/06/2019 Chief Complaint "Well I did do some meth." History of Present Illness The patient a 29-year-old man with a strong history of methamphetamine abuse presents to [facility] initially after using methamphetamine. He had been discharged where he subsequently returned with some mild paranoid thoughts at times. Patient returned to his mother after being discharged and was reportedly rebuffed as there is a stay away order in place as he cannot have contact with his children. Patient was noted to have returned stating that "this is a safe place." He had been admitted out of abundance of caution and had tested positive for methamphetamine and cannabinoids upon his presentation. When I met with the patient, he had had a overnight stay where he subsequently had return baseline level of mental status. He was initially guarded but had admitted to the methamphetamine use. He had returned from being somewhat tangential to had improved somewhat. He reportedly was not able to return to mother's home as there was a stay away order. The patient reported that he was living with a friend and had the luo to the home. He did sign release so that we may confirm that he was living currently with this friend and had access to that home as he had been roomates. His mother appeared to take the advantage of the time to argue with the patient stating that he needed to go rehab (substance). The patient was offered rehab, however, he declined stating that he would rather prefer it "on my own." Interview with providers in the ER indicates that the patient's mother appeared to be quite controlling attempting to force the patient into a rehab stay. The patient reported that he was uninterested in that at this time and only mild anxiety symptoms. Review Of Systems Depression: The patient denies any episodes of unprovoked depressed mood associated with neurovegetative symptoms lasting longer than 2 weeks with symptoms present nearly everyday. Anxiety: The patient reports difficulty with anxiety at times, excessive worry but tries not "not take it seriously." Bambi: The patient denies any episodes of euphoria/dysphoria associated with decreased need for sleep, hedonism, talkatively or impulsivity lasting longer than 5 days. Psychotic: The patient denies any experiences of auditory or visual hallucinations. They deny any episodes of paranoia or delusional thinking in the past Trauma: The patient denies any traumatic events associated with nightmares or intrusive thoughts. Borderline: The patient screens negative for borderline personality at this junction. Past Psychiatric History Had previous admissions in the past for depression 3 in 2016 similar presentati ons in the setting of drug use. He is on no current psychiatric medications, no outpatient treatment. Has reportedly had been tried in the past on Depakote and ADHD medications as a child. Denies any history of suicide attempts. Appears to have a drug overdose questionable intention versus overuse of drugs. Allergies Please see below. Family Psychiatric History The patient denies/is unaware any history of mental health history including addictions and suicide. Social History The patient is a currently never man that has 2 kids that are currently living with the patient's mom at this time. He currently lives with a friend Bg, has no current source of income Reports close relationship with mother. Reported good relationship with father, poor relationship with sibling. No history of service. Substance Abuse History The patient reports a history of methamphetamine use, tobacco use, cannabis use. Denies excessive alcohol or opioids. Testing upon admission reveals can nabinoids, methamphetamines. Medical History Reports no current medical problems at this time, had some liver dysregulation, however, medicine had seen him today and signed off with no further follow up recommended. Mental Status Examination General: Well dressed with good hygiene Speech: Spontaneous and fluid Thought processes: Linear and logical MSK: Smooth and coordinated gait, no signs of tremors or involuntary orofacial movements Thought content: Future orientated Abstract reasoning, and computation: Intact Description of associations: Intact Description of abnormal or psychotic thoughts: Denies any suicidal or homicidal ideation. Denies any auditory or visual hallucinations. Does not appear to be responding to internal stimuli. Does not appear to be endorsing any bizarre or paranoid ideation. Judgment: Chronically limited. Insight: Chronically limited. Orientation: Alert and orientated 3 Cognition: Grossly normal Recent and remote memory: Intact Attention span and concentration: Intact Fund of knowledge: Adequate Mood: "okay" Affect: Euthymic with a full range Diagnoses Unspecified anxiety disorder. Methamphetamine use disorder. Cannabis use disorder, severe. Tobacco use disorder, moderate. Assessment and Plan The patient a 29-year-old man with a significant history of drug use, is admitted out of abundance of caution for his thought process, however, it is very likely that the patient's sudden resolution is hallmark for intoxication from his methamphetamine problems. The patient has returned to what appears to be more or less a normal mental status and has been denying any suicidal or homicidal ideation .The patient requested discharge and in my opinion does not meet involuntary criteria as he has not been engaging behavioral on the unit and has returned to a more or less normal mental status for this patient's likely baseline. He has a proximal reason for his reported symptoms and appears to be a common factor. The patient has presented multiple times for substance use. Had been discharged earlier that day for substance abuse and had been admitted similarly. The patient at this time is cooperative with the discharge process and will need to be discharged. We recommend follow up with his medical provider and rehab, however, he is unintertested. His mother was quite upset as she wanted the patient to be held involuntarily for rehab and unfortunately the patient had revoked the release unamenable to this and became threatening to the nursing staff , where her information was sent to the press shop supervisor so that the mother may be best with about the difficulties of that kind of behavior and the unamenability of the patient at this time will likely have difficulties. My strongest recommendation was that he attend our outpatient addiction clinic so that he may go to rehab or attend rehab as soon as possible. Medicine has signed off on him despite the liver enzymes at this time, thus will likely need follow up. Disposition Same day discharge. Problem List 1. Altered thoughts. 2. Substance abuse Initial Treatment Plan 1. Patient was admitted on a 9.39 legal status. 2. Complete history was obtained. 3. With patients permission, family will be contacted and database will be expanded. 4. Patients medication regimen will be reviewed and changed accordingly. 5. Patient will be provided with protected environment. 6. Patient will be treated with individual, group, and milieu therapies. 7. Patient will receive supportive psych-education. 8. Discharge planning will commence immediately. 9. Outpatient follow-up treatment will be strongly recommended. 10. The initial treatment plan will focus initially on: Estimated Length Of Stay 1 day. Time Spent 70 minutes. Thursday Vital Signs Vital Signs Date Time Temp Pulse Resp B/P (MAP) Pulse Ox O2 Delivery O2 Flow Rate FiO2 12/06/19 06:24 98.4 62 14 107/55 (72) 12/05/19 20:16 100 Room Air Laboratory Data 24H Labs Laboratory Tests 2 12/05/19 10:37: Anion Gap 5L, Glomerular Filtration Rate > 60.0, Calcium Level 9.7, Total Bilirubin 0.8, Direct Bilirubin 0.3H, Aspartate Amino Transf (AST/SGOT) 85H, Alanine Aminotransferase (ALT/SGPT) 273H, Alkaline Phosphatase 85, Ammonia 37H, Total Creatine Kinase 147, Creatine Kinase MB 1.0, Creatine Kinase MB Relative Index 0.68, Troponin I < 0.02, Total Protein 7.6, Albumin 4.5, Albumin/Globulin Ratio 1.45, Thyroid Stimulating Hormone (TSH) 1.180, Salicylates Level < 1.7L, Acetaminophen Level < 2.0L, Ethyl Alcohol Level < 0.003 12/05/19 11:07: Lactic Acid Level 1.4 12/05/19 11:50: Urine Color YELLOW, Urine Appearance HAZY, Urine pH 9.0, Urine Specific [place] 1.005, Urine Protein NEGATIVE, Urine Glucose (UA) NEGATIVE, Urine Ketones NEGATIVE, Urine Blood NEGATIVE, Urine Nitrite NEGATIVE, Urine Bilirubin NEGATIVE, Urine Urobilinogen 2.0H, Urine Leukocyte Esterase NEGATIVE, Urine WBC (Auto) 0, Urine RBC (Auto) 1, Urine Hyaline Casts (Auto) 0, Urine Bacteria (Auto) NEGATIVE, Urine Squamous Epithelial Cells 0, Urine Amorphous Sediment MODERATEH, Urine Sperm (Auto) , Urine Opiates Screen NEGATIVE, Urine Methadone Screen NEGATIVE, Urine Barbiturates Screen NEGATIVE, Urine Phencyclidine Screen NEGATIVE, Urine Amphetamines Screen POSITIVEH, Urine Benzodiazepines Screen NEGATIVE, Urine Cocaine Metabolite Screen NEGATIVE, Urine Cannabinoids Screen POSITIVEH CBC/BMP Laboratory Tests 12/05/19 10:37 Medications No Active Prescriptions or Reported Meds Allergies Coded Allergies: No Known Drug Allergies (Verified Allergy, Unknown, 12/05/19) LINDA KU DO Dec 06, 2019 10:36
--- NOTE | 2019-12-06 13:06 | HPEPDOC ---
General Date of Admission Dec 05, 2019 at 21:17 Date of Service: Dec 06, 2019 Chief Complaint The patient is a 29-year-old male admitted with a reason for visit of Unspecified Psychotic Disorder. Source: Patient, RN/MD Exam Limitations: Clinical conditions (racing speech ) Timing/Duration: Getting worse Severity: Moderate Associated Symptoms: Denies Symptoms History of Present Illness Pt is a 29 year old male admitted to the [facility] for management of his worsening depression. Pt stated that for 'months now' he has noticed everything going wrong. He has not been taking his medications as prescribed. Pt sees Dr. Negra Escalante for his psych needs. Pt denied any medical issues at this time. Home Medications No Active Prescriptions or Reported Meds Allergies Coded Allergies: No Known Drug Allergies (Verified Allergy, Unknown, 12/05/19) Past Medical History Medical History unremarkable Surgical History none Family History Significant Family History: No pertinent family hx Social History * Smoker: Denies Alcohol: Denies Drugs: other (methamphetamine ) Recent Travel/Sick Contacts: Denies: Recent travel, Recent sick contacts A-FIB/CHADSVASC A-FIB History Current/History of A-Fib/PAF?: No Current PO Anticoag Therapy: No Review of Systems Constitutional: Denies: Chills, Fever, Night Sweats Eyes: Denies: Pain ENT: Denies: Head Aches Skin: Denies: Rash Pulmonary: Denies: Dyspnea, Cough Cardiovascular: Denies: Chest Pain, Palpitations Gastrointestinal: Denies: Nausea, Vomiting, Abdominal Pain, Diarrhea Genitourinary: Denies: Dysuria Hematologic: Denies: Bruising Musculoskeletal: Denies: Neck Pain, Back Pain, Joint Pain, Muscle Pain, Spasms Neurological: Denies: Weakness, Numbness, Change in speech, Confusion Psych: Reports: Depression; Denies: Mood Normal, Thoughts of Self Harm, Thoughts of Harming Other Physical Examination General Exam: Positive: Alert, Cooperative, No Acute Distress Eye Exam: Positive: PERRLA, Conjunctiva & lids normal, EOMI; Negative: Sclera icteric ENT Exam: Positive: Atraumatic, Mucous membr. moist/pink, Pharynx Normal, Tongue Midline Neck Exam: Positive: Supple; Negative: JVD, thyromegaly Chest Exam: Positive: Clear to auscultation, Normal air movement Heart Exam: Positive: Rate Normal, Regular Rhythm, Normal S1, Normal S2; Negative: Murmurs, Rubs Telemetry: Positive: No significant arrhythmia Abdomen Exam: Positive: Normal bowel sounds, Soft; Negative: Tenderness, Hepatospenomegaly Extremity Exam: Positive: Normal pulses; Negative: Clubbing, Cyanosis, Edema Skin Exam: Positive: Nl turgor and temperature Neuro Exam: Positive: Strength at 5/5 X4 ext, Cranial Nerves 3-12 NL; Negative: Normal Speech (racing speech ) Psych Exam: Negative: Mood NL (Depressed/withdrawn) Vital Signs Vital Signs Date Time Temp Pulse Resp B/P (MAP) Pulse Ox O2 Delivery O2 Flow Rate FiO2 12/06/19 06:24 98.4 62 14 107/55 (72) 12/05/19 20:16 100 Room Air Assessment/Plan Pt is a 29 year old male admitted to the [facility] for management of his worsening depression. Pt has a PMHx which includes: Depression and polysubstance abuse. Pt was extremely paranoid when he presented to the ED. It appears he was denied access to his mother's house due to some sort of restraining order dis-allowing him from having contact with his children. His mother reported to the ED staff that he has been using drugs excessively over the past 2 weeks, disintegrating into extreme paranoia and agitation, disorganized speech, requiring multiple ED visits. Pt has some order to stay away from his children who reside at the mother's home. Mother reported that he used methamphetamine as recently as Thursday. +ve tox screen noted. CT Head without contrast Impression: "Normal noncontrast head CT. No evidence for acute intracranial pathology or trauma/injury." PORTABLE CHEST X-RAY Impression: No acute cardiopulmonary process appreciated." 1. Depression, with polysubstance abuse - management per [facility] Medicine will sign off at this time. Please re-consult as needed. Plan / VTE VTE Prophylaxis Ordered?: No STEPHANE TOM PA-C Dec 06, 2019 13:06
--- NOTE | 2019-12-06 14:04 | MHDSPDOC ---
[facility] Discharge Summary Discharge Summary DATE OF ADMISSION: Dec 05, 2019 at 21:17 DATE OF DISCHARGE: 12/06/19 please see h/p for clinical reasoning and discharge dx Vital Signs/I&Os Vital Signs Date Time Temp Pulse Resp B/P (MAP) Pulse Ox O2 Delivery O2 Flow Rate FiO2 12/06/19 06:24 98.4 62 14 107/55 (72) 12/05/19 20:16 100 Room Air I&O- Last 24 Hours up to 6 AM 12/06/19 06:00 Intake Total 1000 ml Balance 1000 ml Medications No Active Prescriptions or Reported Meds Allergies Coded Allergies: No Known Drug Allergies (Verified Allergy, Unknown, 12/05/19) LINDA KU DO Dec 06, 2019 14:04
== END 2019-12-06 15:15 | disposition home or self-care (01) | DRG 756 ==
LOC: M ED 07:54 → M ED INP 21:17 → M PSY 22:55
PROVIDERS: ADMIT Psychiatry & Neurology Psychiatry; ATTEND Psychiatry & Neurology Addiction Medicine
DX: F41.9 Anxiety disorder, unspecified (principal); F17.200 Nicotine dependence, unspecified, uncomplicated; F12.90 Cannabis use, unspecified, uncomplicated

== ENCOUNTER 2020-02-06 14:10 | Emergency (ER) | payer MEDICAID ==
[~2020-02-06] VITALS: Ht 172.7 cm; Wt 65.9 kg
[2020-02-06] MEDS ORDERED: BUSP1TAB (14:41)
[2020-02-06] MEDS ORDERED: OLAN5TAB (14:41)
[2020-02-06 15:14] LABS: HEMATOCRIT 45.5 % (42.0-52.0); HEMOGLOBIN 16.6 g/dl (13.5-17.5); MEAN CORPUSCULAR HEMOGLOBIN 32.7 pg (27.0-33.0); MEAN CORPUSCULAR HGB CONC 36.5 g/dl (32.0-36.5); MEAN CORPUSCULAR VOLUME 89.7 fl (80.0-96.0); PLATELET COUNT, AUTOMATED 270 10^3/uL (150-450); RED BLOOD COUNT 5.07 10^6/uL (4.30-6.10); WHITE BLOOD COUNT 5.1 10^3/uL (4.0-10.0)
[2020-02-06 15:41] LABS: AMPHETAMINES LEVEL URINE POSITIVE (NEGATIVE); BARBITURATES URINE NEGATIVE (NEGATIVE); BENZODIAZEPINES URINE NEGATIVE (NEGATIVE); CANNABINOIDS URINE NEGATIVE (NEGATIVE); COCAINE METABOLITE URINE NEGATIVE (NEGATIVE); METHADONE URINE NEGATIVE (NEGATIVE); OPIATES URINE NEGATIVE (NEGATIVE); PHENCYCLIDINE URINE NEGATIVE (NEGATIVE)
[2020-02-06 15:59] LABS: ACETAMINOPHEN LEVEL < 2.0 UG/ML (10.0-30.0); ALBUMIN 4.9 GM/DL (3.2-5.2); ALT/SGPT 346 U/L (12-78); BILIRUBIN,DIRECT 0.3 MG/DL (0.0-0.2); BILIRUBIN,TOTAL 1.2 MG/DL (0.2-1.0); BLOOD UREA NITROGEN 4 MG/DL (7-18); CALCIUM LEVEL 9.8 MG/DL (8.5-10.1); CARBON DIOXIDE LEVEL 33 MEQ/L (21-32); CHLORIDE LEVEL 97 MEQ/L (98-107); CREATININE FOR GFR 0.78 MG/DL (0.70-1.30); ETHYL ALCOHOL (ETHANOL) 0.023 % (0.000-0.010); GLOMERULAR FILTRATION RATE > 60.0 (>60); GLUCOSE, FASTING 71 MG/DL (70-100); POTASSIUM SERUM 3.1 MEQ/L (3.5-5.1); SALICYLATE LEVEL < 1.7 MG/DL (5.0-30.0); SODIUM LEVEL 135 MEQ/L (136-145); TOTAL PROTEIN 8.6 GM/DL (6.4-8.2)
[2020-02-06] MEDS ORDERED: POTASSIUM CHLORIDE 10 MEQ SR TABLET PO ONE (16:30)
[2020-02-06 19:28] VITALS: BP 159/90
== END 2020-02-06 19:31 | disposition home or self-care (01) ==
LOC: M ED 14:10
DX: F15.10 Other stimulant abuse, uncomplicated (principal); R94.5 Abnormal results of liver function studies; F31.9 Bipolar disorder, unspecified; F41.9 Anxiety disorder, unspecified; B19.20 Unspecified viral hepatitis C without hepatic coma; Z79.899 Other long term (current) drug therapy
CPT/HCPCS: 36415; 80048; 80076; 80307; 84443; 85027; 99284; G0480

== ENCOUNTER 2020-02-11 13:02 | Inpatient (IN) | payer MEDICAID, OTHER ==
[~2020-02-11] VITALS: Ht 172.7 cm; Wt 64.5 kg
[~2020-02-11 13:02] MED LIST changes: +BUSP1TAB PO; +OLAN5TAB
[2020-02-11] MEDS ORDERED: GABA-1171 PO (13:27)
[2020-02-11] MEDS ORDERED: PANT40TA3 (13:27)
[2020-02-11] MEDS ORDERED: TRAZ150T90 PO (17:02)
[2020-02-11] MEDS ORDERED: OMEP-218 PO (17:02)
[2020-02-11] MEDS ORDERED: VITAD1000T PO (17:02)
[2020-02-11] MEDS ORDERED: OLAN10TA2 PO (17:02)
[2020-02-11] MEDS ORDERED: MAALOX 30 ML SUSP *UDC PO PRN (17:15)
[2020-02-11] MEDS ORDERED: traZODone 50 MG TAB PO PRN (17:15)
[2020-02-11] MEDS ORDERED: ACETAMINOPHEN TAB 650MG DOSE (2X325MG) PO PRN (17:15)
[2020-02-11] MEDS ORDERED: MOM 30ML SUSPENSION UDC PO PRN (17:15)
[2020-02-11] MEDS ORDERED: GABAPENTIN 100 MG CAP PO PRN (17:30)
[2020-02-11] MEDS ORDERED: PILL CUTTER 1 EACH XX PRN (17:45)
[2020-02-11 18:30] VITALS: BP 133/88
[2020-02-11] MEDS: busPIRone 5 MG TAB PO SCH (20:37)
[2020-02-11] MEDS: OLANZapine 10 MG TAB PO SCH (20:37)
[2020-02-11] MEDS: traZODone 50 MG TAB PO PRN (20:47)
[2020-02-12 06:49] VITALS: BP 110/52
[2020-02-12] MEDS: VITAMIN D 1,000 INTERNATIONAL UNITS TABLET PO SCH (08:45)
[2020-02-12] MEDS: OMEPRAZOLE 20 MG CAP PO SCH (08:46)
[2020-02-12] MEDS: busPIRone 5 MG TAB PO SCH ×2 (08:46→20:19)
[2020-02-12 16:09] VITALS: BP 133/80
--- NOTE | 2020-02-12 18:18 | HPEPDOC ---
[facility] Medical History & Physical Date of Admission Feb 12, 2020 Date of Service: Feb 12, 2020 Attending Physician: BRIANNA SILVERMAN MD History and Physical CHIEF COMPLAINT: Admitted to inpatient mental health unit for overdosing on BuSpar HISTORY OF PRESENT ILLNESS: 29-year-old male medical history of anxiety, ADHD and bipolar disorder is admitted inpatient at health unit for overdosing on BuSpar. Patient has been on BuSpar for the past few weeks, reports she's not sure why he took the medication, denies suicidal ideation, reports it was stupid. He reports taking about 10 pills, did not experience any side effects, without any complaints at this time. Patient denies any shortness of breath, chest pain, nausea, vomiting, abdominal pain, diarrhea or constipation. 10 point review of system is negative except for above PAST MEDICAL HISTORY: 1. ADHD. 2. Bipolar disorder. 3. Anxiety. PAST SURGICAL HISTORY: 1. None. SOCIAL HISTORY: Smokes a couple cigarettes per day Denies alcohol use. Denies drug use FAMILY HISTORY: Denies family history of cancer, heart disease ALLERGIES: Please see below. HOME MEDICATIONS: Please see below. PHYSICAL EXAMINATION: VITAL SIGNS: Please see below. GENERAL: No distress HEENT: Normocephalic, atraumatic, moist mucous membranes NECK: Supple CARDIOVASCULAR EXAMINATION: S1, S2, no murmurs RESPIRATORY EXAMINATION: Clear to auscultation, no wheezing ABDOMINAL EXAMINATION: Soft, nontender, nondistended, positive bowel sounds EXTREMITIES: Range of motion intact SKIN: No rash NEUROLOGICAL EXAMINATION: Alert and oriented 3, no focal deficits PSYCHIATRIC EXAMINATION: Calm and cooperative LABORATORY DATA: See below. MICROBIOLOGY: Please see below. ASSESSMENT: 29-year-old male with past medical history of anxiety, ADHD and bipolar disorder is admitted to inpatient mental health unit after overdosing on BuSpar. PLAN: 1. BuSpar overdose. Reportedly took 10 pills, doesn't know why, denies suicidal ideation, no adverse effects noted, clinically stable, no intervention needed from a medical standpoint. 2. Anxiety/ADHD/polar disorder. Management as per primary team Patient does not have any active medical issues at this time, please reconsult as needed. Vital Signs Vital Signs Date Time Temp Pulse Resp B/P (MAP) Pulse Ox O2 Delivery O2 Flow Rate FiO2 02/12/20 16:09 98.8 88 16 133/80 (97) 02/12/20 06:49 97 Room Air Home Medications Scheduled Buspirone HCl (Buspirone HCl) 7.5 Mg Tablet, 7.5 MG PO BID Cholecalciferol (Vitamin D3) (Vitamin D3) 1,000 Unit Tablet, 1,000 UNITS PO DAILY Olanzapine (Olanzapine) 10 Mg Tablet, 10 MG PO QHS Omeprazole (Omeprazole) 20 Mg Capsule.dr, 20 MG PO DAILY Trazodone HCl (Trazodone HCl) 150 Mg Tablet, 150 MG PO QHS Scheduled PRN Gabapentin (Gabapentin) 100 Mg Capsule, 100 MG PO DAILY PRN for BACK PAIN Allergies Coded Allergies: No Known Drug Allergies (Verified Allergy, Unknown, 12/05/19) A-FIB/CHADSVASC A-FIB History Current/History of A-Fib/PAF?: No BRIANNA SILVERMAN MD Feb 12, 2020 18:17
[2020-02-12] MEDS: OLANZapine 10 MG TAB PO SCH (20:19)
[2020-02-12] MEDS: traZODone 50 MG TAB PO PRN (21:39)
--- NOTE | 2020-02-13 01:32 | MHHPE ---
DATE OF ADMISSION: 02/11/2020 DATE OF EVALUATION: 02/12/2020 HISTORY OF PRESENT ILLNESS: This is one of multiple admissions for this 29-year-old man who was transferred from [facility], where he had been admitted after an intentional overdose on gabapentin and buspirone. The patient indicated that "I was just upset, upset with life in general." He indicated stressors to include not having a vehicle, financial stressors, and struggling with a lack of support. He stated that he had been having depression for about a year. He did state that he has a friend called Bg and his mom and his ex-girlfriend, who is the mother of his children, that these people all provide him support. He had admitted that the overdose was a suicidal attempt, but he described that it was an impulsive decision. The patient indicated that he had not used methamphetamine for about a week and a half. The patient's mom was called in the emergency room. She stated that the patient has been "paranoid and experiencing auditory hallucinations and has been decompensating for the past 6 months." Mom stated that the patient had called her stating that the SWAT team was on his roof due to his girlfriend and girlfriend's father sending the FBI after him. He stated that he thought the SWAT team was there to poke his eyes out, cut off his genitals, and rape him. The mom was concerned and called the police to do a welfare check. When the police arrived, that is when they discovered that the patient had overdosed on the gabapentin and buspirone. Mom indicated being concerned for the patient's safety. The patient states today that "people around me are saying things about me. I was feeling really stressed. I was stressed about a lot of things." He is very guarded, though. When I asked him who was saying things about him, he said neighbors; but then he said it was not really the neighbors, but the people who visit the neighbors. I asked him why they were talking about him, and he said, "They don't like me." He stated that they talk about him on the internet; however, I could not get him to elaborate at all as to the content of what he thinks that they are saying about him. He denied everything that the mother said about him saying that the FBI was after him, but at one point he did say, "They are trying to jump me." Then when I asked him to elaborate on that, he would not elaborate further. The patient states that he attends treatment at [facility], and he says that he gets treatment for "bipolar disorder, anxiety, and ADHD." he is on BuSpar 7.5 mg twice a day, trazodone 150 mg nightly as needed for insomnia, and Zyprexa 10 mg nightly. He is on Neurontin 100 mg daily as needed, but that is for pain. He says he has some herniated discs in his back. When I asked him why he was bipolar, he said, "because my moods go up and down." Then he said, "I really don't know." I did not elicit any hypomanic or manic-like symptoms in this patient, though. PAST PSYCHIATRIC HISTORY: The patient, as I said, just overdosed and indicated that it was a suicidal attempt, although he said it was impulsive. The patient had hospitalization at [facility] from 12/05/2019 until 12/06/2019. At that time, he was diagnosed with unspecified anxiety disorder, methamphetamine use disorder, cannabis use disorder, severe. The patient was felt to have stabilized overnight. He had admitted to methamphetamine use. The impression of the psychiatrist was that his paranoid state was secondary to methamphetamine intoxication. FAMILY HISTORY: The patient denies any family history of any psychiatric problems or suicides. MEDICAL HISTORY: Other than his back pain and herniated discs, he denies any other medical problems. ABUSE HISTORY: He denies any history of any physical or sexual abuse. SUBSTANCE ABUSE HISTORY: The patient apparently has a significantly history of abusing methamphetamine and cannabis. REVIEW OF SYSTEMS: VITAL SIGNS: Blood pressure 110/52, pulse 63, respiration 18. APPEARANCE: He did not appear to be in any apparent distress. NEUROMUSCULAR SYSTEM: The patient's gait was not observed. The patient did not exhibit any involuntary movements of his extremities. Other systems were reviewed, found to be negative except for his back pain due to herniated discs. MENTAL STATUS EXAMINATION: The patient was alert, and he was oriented times three. Eye contact was fair. Psychomotor activity was decreased. There is no formal thought disorder noted. He said his mood was fine. His affect was flat. He definitely appears to have paranoid thoughts, and he was quite guarded about the content. The patient is denying suicidal ideation and homicidal ideations. Concentration is fair. Memory intact. Insight and judgment poor. IMPRESSION: 1. Unspecified psychotic disorder. 2. Unspecified depressive disorder. 3. Methamphetamine use disorder. 4. Cannabis use disorder. TREATMENT PLAN: The patient, at this point, will continue to be monitored for what appears to be paranoid thoughts that he is very guarded about. Of note was that mom stated that the patient was talking about the FBI being after him and wanting to hurt him. The patient is talking about feeling that people are talking about him, but he is very guarded as to the content and it is not clear if it could be ideas of reference that he might be experiencing. The patient's insight seems to be very poor. We will go ahead and continue his current medications - Zyprexa 10 mg nightly, BuSpar 7.5 mg twice a day, and trazodone 150 mg nightly as needed insomnia - and we will see if we need to further titrate these medications; and the plan is to discharge him once he is stable with appropriate followup.
[2020-02-13 06:45] VITALS: BP 117/57
--- NOTE | 2020-02-13 09:25 | MHIPNPDOC ---
[facility] Progress Note Progress Note DATE OF SERVICE: 02/13/20 HISTORY: . VITAL SIGNS: See below. NEW TEST RESULTS: . CURRENT MEDICATIONS: See below. MENTAL STATUS EXAMINATION: Patient is a -year old male, who is . Speech: Is . Language skills are . Thought processes including: . Thought content: . Abstract reasoning, and computation: . Description of associ ations: . Description of abnormal or psychotic thoughts: . Judgment: . Insight: [very limited, good, fair. poor]. Orientation: . Recent and remote memory: . Attention span and concentration: . Language: . Fund of knowledge: . Mood: . Affect: . DIAGNOSES: 1. . 2. . 3. . ASSESSMENT: MANAGEMENT PLAN: . TIME SPENT: minutes. Vital Signs Vital Signs Date Time Temp Pulse Resp B/P (MAP) Pulse Ox O2 Delivery O2 Flow Rate FiO2 02/13/20 06:45 97.9 67 12 117/57 (77) 99 Room Air Current Medications Current Medications Medications (Trade) Dose Ordered Sig/Sreedhar Route PRN Reason Start Time Stop Time Status Last Admin Dose Admin Acetaminophen (Tylenol Tab) 650 mg Q6HP PRN PO HEADACHE or DISCOMFORT 02/11/20 17:15 Al Hydrox/Mg Hydrox/Simethicone (Mylanta) 30 ml Q4HP PRN PO HEARTBURN/INDIGESTION 02/11/20 17:15 Buspirone HCl (Buspar) 7.5 mg BID PO 02/11/20 21:00 02/12/20 20:19 Gabapentin (Neurontin) 100 mg DAILY PRN PO BACK PAIN 02/11/20 17:30 Home Med (Med Rec Complete!) ASDIRECTED XX 02/11/20 17:15 02/11/20 17:05 DC Magnesium Hydroxide (Milk Of Magnesia) 30 ml DAILYPRN PRN PO CONSTIPATION 02/11/20 17:15 Olanzapine (ZyPREXA) 10 mg QHS PO 02/11/20 21:00 02/12/20 20:19 Omeprazole (PriLOSEC) 20 mg DAILY PO 02/12/20 09:00 02/12/20 08:46 Trazodone HCl (Desyrel) 50 mg QHSP PRN PO INSOMNIA 02/11/20 17:15 02/11/20 17:24 DC Trazodone HCl (Desyrel) 150 mg QHSP PRN PO INSOMNIA 02/11/20 17:30 02/12/20 21:39 Vitamin D (Vitamin D) 1,000 units DAILY PO 02/12/20 09:00 02/12/20 08:45 Allergies Coded Allergies: No Known Drug Allergies (Verified Allergy, Unknown, 12/05/19) LINDA KU DO Feb 13, 2020 09:25
[2020-02-13] MEDS: OMEPRAZOLE 20 MG CAP PO SCH (09:31)
[2020-02-13] MEDS: VITAMIN D 1,000 INTERNATIONAL UNITS TABLET PO SCH (09:31)
[2020-02-13] MEDS: busPIRone 5 MG TAB PO SCH (09:34)
--- NOTE | 2020-02-14 09:06 | MHDSPDOC ---
[facility] Discharge Summary Discharge Summary DATE OF ADMISSION: Feb 11, 2020 at 17:05 DATE OF DISCHARGE: Feb 13, 2020 at 13:20 Discharge Jose Damon MRN: N/A Date of : N/A Date of Service: 02/13/2020 Diagnoses Unspecified anxiety disorder. Methamphetamine use disorder. Cannabis use disorder, severe. Tobacco use disorder, moderate. Unspecified psychotic disorder. Likely substance induced. History of Present Illness The patient a 29-year-old man was transferred after misusing gabapentin and becoming over intoxicated, he was transferred from [facility] as they do not have psychiatry and he was admitted on abundance of caution due to concern for this being an intentional overdose despite him having an extensive history of addiction. Consultants Involved Hospitalist/PCP screening Treatment and Progress On The Unit The patient was admitted to the inpatient mental health unit where he was initially restarted on his home medications of Zyprexa, BuSpar and trazodone. He did well and his reported paranoid ideation that had been present when he had presented had vanished quite quickly. He was friendly and amenable, doing well and generally amenable with no behavioral problems on the unit. Further suggesting a substance-induced problem. Engaged well with treatment and requested discharge respectfully after roughly 48 hours of observation. He demonstrated no signs of psychosis shortly after he had presented to the inpatient unit. Discharge Assessment 29-year-old man with a history of significant substance use including methamphetamine presents with a reported overdose of gabapentin, however, he had been intoxicated likely with multiple medications including methamphetamine and other drugs, he was restarted on his home medications, observed and did well with sudden resolution highly consistent with a substance-induced problem. He has a generally unremarkable admission and is discharged at his request. The patient at the time of discharge did not meet criteria for involuntary adm ission/extension due to having a normal mental status exam, fair insight into the situation, They are engaged in the discharge process, as well as being friendly and amenable in behavioral control and havent been engaging in any observed concerning behavior or ideation recently. They decline voluntary extension/admission at this time and must be discharged in good bubba, as [facility] able to make a case for holding the patient against their will. They may have historical risk factors of admissions and other interactions with psychiatry however, those are not modifiable from a clinical perspective. The patient will need to be discharged in good bubba. Mental Status Examination General: Well dressed with good hygiene Speech: Spontaneous and fluid Thought processes: Linear and logical MSK: Smooth and coordinated gait, no signs of tremors or involuntary orofacial movements Thought content: Future orientated Abstract reasoning, and computation: Intact Description of associations: Intact Description of abnormal or psychotic thoughts: Denies any suicidal or homicidal ideation. Denies any auditory or visual hallucinations. Does not appear to be responding to internal stimuli. Does not appear to be endorsing any bizarre or paranoid ideation. Judgment: Improved from previous Insight: Improved from previous Orientation: Alert and orientated 3 Cognition: Grossly normal Recent and remote memory: Intact Attention span and concentration: Intact Fund of knowledge: Adequate Mood: "okay" Affect: Euthymic with a full range Follow Up The social work team worked during the predischarge meeting in order to evaluate for further issues of lethality address them fully before discharge. They worked on safety planning with the patient's family members in order to ensure that the patient will have a safe and effective discharge. Time Spent The amount of time spent in the coordination of care for this patient was ap proximately 45 minutes. Thursday Vital Signs/I&Os Vital Signs Date Time Temp Pulse Resp B/P (MAP) Pulse Ox O2 Delivery O2 Flow Rate FiO2 02/13/20 06:45 97.9 67 12 117/57 (77) 99 Room Air Medications Scheduled Buspirone HCl (Buspirone HCl) 7.5 Mg Tablet, 7.5 MG PO BID, (Reported) Cholecalciferol (Vitamin D3) (Vitamin D3) 1,000 Unit Tablet, 1,000 UNITS PO DAILY, (Reported) Olanzapine (Olanzapine) 10 Mg Tablet, 10 MG PO QHS, (Reported) Omeprazole (Omeprazole) 20 Mg Capsule.dr, 20 MG PO DAILY, (Reported) Trazodone HCl (Trazodone HCl) 150 Mg Tablet, 150 MG PO QHS, (Reported) Scheduled PRN Gabapentin (Gabapentin) 100 Mg Capsule, 100 MG PO DAILY PRN for BACK PAIN, (Reported) Allergies Coded Allergies: No Known Drug Allergies (Verified Allergy, Unknown, 12/05/19) LINDA KU DO Feb 14, 2020 09:06
== END 2020-02-13 13:20 | disposition home or self-care (01) | DRG 756 ==
LOC: M ED 13:02 → M ED INP 17:05 → M PSY 18:25
PROVIDERS: ADMIT Psychiatry & Neurology Psychiatry; ATTEND Psychiatry & Neurology Addiction Medicine
DX: F41.9 Anxiety disorder, unspecified (principal); F32.9 Major depressive disorder, single episode, unspecified; F12.20 Cannabis dependence, uncomplicated; F15.10 Other stimulant abuse, uncomplicated; F29 Unspecified psychosis not due to a substance or known physiological condition; Z79.899 Other long term (current) drug therapy; F19.14 Other psychoactive substance abuse with psychoactive substance-induced mood disorder

== ENCOUNTER 2020-02-16 22:27 | Emergency (ER) | payer MEDICAID, OTHER ==
[~2020-02-16] VITALS: Ht 172.7 cm; Wt 62.9 kg
[~2020-02-16 22:27] MED LIST changes: +GABA-1171 PO; +OLAN10TA2 PO; +OMEP-218 PO; +PANT40TA3; +TRAZ150T90 PO; +VITAD1000T PO
[2020-02-16] MEDS ORDERED: NS 1,000 ML IV ONE (22:45)
[2020-02-16 23:00] LABS: HEMOGLOBIN 15.5 g/dl (13.5-17.5); MEAN CORPUSCULAR VOLUME 91.7 fl (80.0-96.0); PLATELET COUNT, AUTOMATED 244 10^3/uL (150-450); RED BLOOD COUNT 4.69 10^6/uL (4.30-6.10); WHITE BLOOD COUNT 8.7 10^3/uL (4.0-10.0)
[2020-02-16 23:28] LABS: AMPHETAMINES LEVEL URINE POSITIVE (NEGATIVE); BARBITURATES URINE NEGATIVE (NEGATIVE); BENZODIAZEPINES URINE NEGATIVE (NEGATIVE); CANNABINOIDS URINE NEGATIVE (NEGATIVE); COCAINE METABOLITE URINE POSITIVE (NEGATIVE); METHADONE URINE NEGATIVE (NEGATIVE); OPIATES URINE POSITIVE (NEGATIVE); PHENCYCLIDINE URINE NEGATIVE (NEGATIVE)
[2020-02-16] MEDS ORDERED: NALOXONE INJ 0.4MG/1ML VIAL (J2310 PER 1MG) IV STA (23:29)
[2020-02-16 23:30] LABS: ACETAMINOPHEN LEVEL < 2.0 UG/ML (10.0-30.0); ALBUMIN 4.6 GM/DL (3.2-5.2); ALT/SGPT 414 U/L (12-78); BILIRUBIN,DIRECT 0.2 MG/DL (0.0-0.2); BILIRUBIN,TOTAL 0.6 MG/DL (0.2-1.0); BLOOD UREA NITROGEN 12 MG/DL (7-18); CALCIUM LEVEL 9.2 MG/DL (8.5-10.1); CARBON DIOXIDE LEVEL 31 MEQ/L (21-32); CHLORIDE LEVEL 98 MEQ/L (98-107); CK-MB VALUE MASS 1.3 NG/ML (<3.6); CPK CREATINE PHOSPHOKINASE 195 U/L (39-308); CREATININE FOR GFR 0.88 MG/DL (0.70-1.30); ETHYL ALCOHOL (ETHANOL) < 0.003 % (0.000-0.010); GLOMERULAR FILTRATION RATE > 60.0 (>60); GLUCOSE, FASTING 104 MG/DL (70-100); MB/CK RELATIVE INDEX 0.67 (< OR =4); POTASSIUM SERUM 3.7 MEQ/L (3.5-5.1); SALICYLATE LEVEL < 1.7 MG/DL (5.0-30.0); SODIUM LEVEL 136 MEQ/L (136-145); TOTAL PROTEIN 8.2 GM/DL (6.4-8.2); TROPONIN I < 0.02 NG/ML (< 0.10)
[2020-02-17 03:23] VITALS: BP 143/84
--- NOTE | 2020-02-17 14:02 | ECGEPIP ---
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
== END 2020-02-17 05:34 | disposition home or self-care (01) ==
LOC: M ED 22:27
DX: F19.10 Other psychoactive substance abuse, uncomplicated (principal); F90.9 Attention-deficit hyperactivity disorder, unspecified type; F41.9 Anxiety disorder, unspecified; F31.9 Bipolar disorder, unspecified; F17.200 Nicotine dependence, unspecified, uncomplicated; Z79.899 Other long term (current) drug therapy
CPT/HCPCS: 36415; 80048; 80076; 80307; 82550; 82553; 84443; 85027; 93005; 93041; 94760; 96374; 99285; G0480; J2310

== ENCOUNTER 2020-02-25 13:07 | Emergency (ER) | payer OTHER ==
[2020-02-25 13:35] LABS: BASO % 0.3 % (0.0-1.0); EOS # 0.1 10^3/uL (0.0-0.5); EOS % 2.4 % (0.0-3.0); HEMATOCRIT 43.7 % (42.0-52.0); HEMOGLOBIN 15.6 g/dl (13.5-17.5); LYMPH # 1.8 10^3/uL (1.5-5.0); LYMPH % 30.4 % (24.0-44.0); MEAN CORPUSCULAR HEMOGLOBIN 32.9 pg (27.0-33.0); MEAN CORPUSCULAR HGB CONC 35.7 g/dl (32.0-36.5); MEAN CORPUSCULAR VOLUME 92.2 fl (80.0-96.0); MONO # 0.8 10^3/uL (0.0-0.8); MONO % 13.7 % (0.0-5.0); NEUTROPHILS # 3.1 10^3/uL (1.5-8.5); NEUTROPHILS % 52.9 % (36.0-66.0); PLATELET COUNT, AUTOMATED 251 10^3/uL (150-450); RED BLOOD COUNT 4.74 10^6/uL (4.30-6.10); WHITE BLOOD COUNT 5.9 10^3/uL (4.0-10.0)
[2020-02-25 13:53] LABS: ABG PARTIAL PRESSURE CO2 39.6 mmHg (35.0-45.0)
[2020-02-25 13:56] LABS: ABG HCO3 27.1 MEQ/L (22.0-26.0); ABG O2 SATURATION 98.5 % (95.0-99.0); ABG PARTIAL PRESSURE O2 124.7 mmHg (75.0-100.0); ABG STANDARD HCO3 27.2 MEQ/L (22.0-26.0); ABG TOTAL CO2 28.3 MEQ/L (22.0-29.0); ABG pH (ARTERIAL) 7.453 UNITS (7.350-7.450)
[2020-02-25 14:05] LABS: ACETAMINOPHEN LEVEL < 2.0 UG/ML (10.0-30.0); ALBUMIN 4.4 GM/DL (3.2-5.2); ALT/SGPT 187 U/L (12-78); BILIRUBIN,DIRECT 0.3 MG/DL (0.0-0.2); BILIRUBIN,TOTAL 1.1 MG/DL (0.2-1.0); BLOOD UREA NITROGEN 8 MG/DL (7-18); CALCIUM LEVEL 9.3 MG/DL (8.5-10.1); CARBON DIOXIDE LEVEL 33 MEQ/L (21-32); CHLORIDE LEVEL 96 MEQ/L (98-107); CPK CREATINE PHOSPHOKINASE 111 U/L (39-308); CREATININE FOR GFR 1.02 MG/DL (0.70-1.30); ETHYL ALCOHOL (ETHANOL) < 0.003 % (0.000-0.010); GLOMERULAR FILTRATION RATE > 60.0 (>60); GLUCOSE, FASTING 92 MG/DL (70-100); POTASSIUM SERUM 3.7 MEQ/L (3.5-5.1); SALICYLATE LEVEL < 1.7 MG/DL (5.0-30.0); SODIUM LEVEL 137 MEQ/L (136-145); TOTAL PROTEIN 8.1 GM/DL (6.4-8.2)
--- NOTE | 2020-02-25 14:20 | REP ---
Clinical: Overdose. Altered mental status . Comparison: 12/05/2019 . Findings: The ventricles, sulci, and cisterns are normal in position and appearance. Agustin-white differentiation is maintained. No acute intracranial hemorrhage, mass/mass effect, pathology or trauma/injury. No evidence for acute infarction. No extra-axial fluid collection. Calvarium is intact. Paranasal sinuses and mastoid air cells are clear. Impression: Normal noncontrast head CT. No evidence for acute intracranial pathology or trauma/injury. Electronically Signed by Shalom Nails MD 02/25/2020 02:11 P
--- NOTE | 2020-02-25 14:34 | REP ---
Clinical: Overdose . Comparison: 12/05/2019 . Findings: The mediastinum and cardiac silhouette are stable and within normal limits for portable technique. The lung harman are clear without acute consolidation, effusion, or pneumothorax. Skeletal structures are intact. Impression: No acute cardiopulmonary process appreciated. Electronically Signed by Shalom Nails MD 02/25/2020 02:26 P
[2020-02-25 18:35] VITALS: BP 118/78
--- NOTE | 2020-02-25 19:36 | ECGEPIP ---
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
== END 2020-02-25 18:38 | disposition home or self-care (01) ==
LOC: EDBD 13:07 → M ED 13:07
DX: T40.1X1A Poisoning by heroin, accidental (unintentional), initial encounter (principal); R94.31 Abnormal electrocardiogram [ECG] [EKG]; F19.10 Other psychoactive substance abuse, uncomplicated; F17.210 Nicotine dependence, cigarettes, uncomplicated; Z79.899 Other long term (current) drug therapy
CPT/HCPCS: 36415; 36600; 70450; 71045; 80048; 80076; 82550; 82803; 84443; 85025; 93005; 93041; 94760; 99285; G0480

== ENCOUNTER 2020-04-08 20:10 | Inpatient (IN) | payer MEDICAID, OTHER ==
[~2020-04-08] VITALS: Ht 172.7 cm; Wt 65.9 kg
[2020-04-08] MEDS ORDERED: NS 1,000 ML IV ONE (20:15)
[2020-04-08] MEDS ORDERED: NALOXONE 2MG/2ML SYRINGE (J2310 PER 1MG) IV STA (20:17)
[2020-04-08] MEDS ORDERED: NALOXONE INJ 0.4MG/1ML VIAL (J2310 PER 1MG) IM STA (20:17)
[2020-04-08] MEDS ORDERED: NALOXONE 2MG/2ML SYRINGE (J2310 PER 1MG) As Ordered ONE (20:17)
[2020-04-08 20:32] LABS: BASO % 0.5 % (0.0-1.0); EOS % 0.2 % (0.0-3.0); HEMATOCRIT 42.1 % (42.0-52.0); HEMOGLOBIN 14.8 g/dl (13.5-17.5); LYMPH # 1.8 10^3/uL (1.5-5.0); LYMPH % 40.7 % (24.0-44.0); MEAN CORPUSCULAR HEMOGLOBIN 32.9 pg (27.0-33.0); MEAN CORPUSCULAR HGB CONC 35.2 g/dl (32.0-36.5); MEAN CORPUSCULAR VOLUME 93.6 fl (80.0-96.0); MONO # 0.4 10^3/uL (0.0-0.8); NEUTROPHILS # 2.1 10^3/uL (1.5-8.5); NEUTROPHILS % 48.5 % (36.0-66.0); PLATELET COUNT, AUTOMATED 202 10^3/uL (150-450); WHITE BLOOD COUNT 4.4 10^3/uL (4.0-10.0)
[2020-04-08 21:08] LABS: ACETAMINOPHEN LEVEL 142.4 UG/ML (10.0-30.0); ALT/SGPT 130 U/L (12-78); BILIRUBIN,DIRECT 0.1 MG/DL (0.0-0.2); BILIRUBIN,TOTAL 0.3 MG/DL (0.2-1.0); BLOOD UREA NITROGEN 5 MG/DL (7-18); CALCIUM LEVEL 8.3 MG/DL (8.5-10.1); CARBON DIOXIDE LEVEL 27 MEQ/L (21-32); CHLORIDE LEVEL 111 MEQ/L (98-107); CPK CREATINE PHOSPHOKINASE 111 U/L (39-308); ETHYL ALCOHOL (ETHANOL) 0.093 % (0.000-0.010); GLOMERULAR FILTRATION RATE > 60.0 (>60); GLUCOSE, FASTING 102 MG/DL (70-100); POTASSIUM SERUM 3.9 MEQ/L (3.5-5.1); SALICYLATE LEVEL < 1.7 MG/DL (5.0-30.0); SODIUM LEVEL 147 MEQ/L (136-145); TOTAL PROTEIN 7.2 GM/DL (6.4-8.2)
[2020-04-08 21:24] LABS: INR 1.07; PROTHROMBIN TIME 13.6 SECONDS (11.8-14.0)
[2020-04-08 21:25] LABS: PARTIAL THROMBOPLASTIN TIME 29.2 SECONDS (25.0-38.4)
[2020-04-08 22:11] LABS: AMPHETAMINES LEVEL URINE NEGATIVE (NEGATIVE); BARBITURATES URINE NEGATIVE (NEGATIVE); BENZODIAZEPINES URINE NEGATIVE (NEGATIVE); CANNABINOIDS URINE POSITIVE (NEGATIVE); COCAINE METABOLITE URINE NEGATIVE (NEGATIVE); METHADONE URINE NEGATIVE (NEGATIVE); OPIATES URINE POSITIVE (NEGATIVE); PHENCYCLIDINE URINE NEGATIVE (NEGATIVE)
[2020-04-09] MEDS ORDERED: traZODone 50 MG TAB PO PRN (15:30)
[2020-04-09] MEDS ORDERED: MOM 30ML SUSPENSION UDC PO PRN (15:30)
[2020-04-09] MEDS ORDERED: MAALOX 30 ML SUSP *UDC PO PRN (15:30)
[2020-04-09] MEDS ORDERED: OLANZapine ORAL DISINTEGRATING TAB 5MG PO PRN (15:30)
[2020-04-09] MEDS ORDERED: IBUPROFEN 600MG TAB PO PRN (15:30)
[2020-04-09] MEDS ORDERED: NICOTINE 21MG/24HR 1 EA TRANSDERMAL TD SCH (16:00)
[2020-04-09 16:04] VITALS: BP 135/88
--- NOTE | 2020-04-09 21:26 | ECGEPIP ---
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
[2020-04-10 06:00] VITALS: BP 125/58
--- NOTE | 2020-04-10 09:25 | MHHPEPDOC ---
[facility] History & Physical History and Physical DATE OF ADMISSION: Apr 09, 2020 at 15:24 Subjective Jose presents today due to making impulsive decisions regarding taking pills. He took Hydrocodone pills because he was feeling upset and being intoxicated. He had drank about 4 shots. His sobriety otherwise has been doing well. He has been 3 weeks sober. He denies any suicidal thoughts, severe depression, hallucinations. Since leaving the hospital, he had been doing well and was trying to work on his resume to find a job. He has been taking his medications as directed, but forgets every now and then. Currently taking Buspar and Abilify. He would like to be discharged tomorrow. Objective Appearance: Well nourished. Well groomed. Affect: Appropriate to context. Full range. Cognition: Alert, Attentive, and Oriented to person, place, time. Thought Form: Linear and goal directed. Thought Content: No thoughts of self harm. No evidence of aggressive or homicidal ideation. No evidence of delusions. No evidence of suicidal ideation. Judgement: intact as evidenced by decision making in the recent past. Insight: good insight into symptoms and treatment options. Assessment F43.20 Adjustment disorder, unspecified F10.94 Alcohol use, unspecified with alcohol-induced mood disorder F19.94 Other psychoactive substance use, unspecified with psychoactive substance-induced mood disorder Plan Observed patient overnight. Continue previously effective Abilify and other medications without change. Medications observed overnight and then patient will be discharged tomorrow as he will not meet criteria for involuntary state. His risk factors for suicide remain chronic and unchanged at this time. The patient generally will not meet criteria. His situation is likely related to substance use. INITIAL TREATMENT PLAN: 1. Patient was admitted on a 9.39 2. Complete history was obtained. 3. With patients permission, family will be contacted and database will be expanded. 4. Patients medication regimen will be reviewed and changed accordingly. 5. Patient will be provided with protected environment. 6. Patient will be treated with individual, group, and milieu therapies. 7. Patient will receive supportive psych-education. 8. Discharge planning will commence immediately. 9. Outpatient follow-up treatment will be strongly recommended. 10. The initial treatment plan will focus initially on: Risk for suicide. Substance abuse. ESTIMATED LENGTH OF STAY: 1-2 DAYS. TIME SPENT COUNSELING AND COORDINATING INITIAL CARE: 20 minutes. Vital Signs Vital Signs Date Time Temp Pulse Resp B/P (MAP) Pulse Ox O2 Delivery O2 Flow Rate FiO2 04/10/20 06:00 97.3 61 12 125/58 (80) 97 Nasal Cannula Medications Scheduled Buspirone HCl (Buspirone HCl) 7.5 Mg Tablet, 7.5 MG PO BID, (Reported) Cholecalciferol (Vitamin D3) (Vitamin D3) 1,000 Unit Tablet, 1,000 UNITS PO DAILY, (Reported) Olanzapine (Olanzapine) 10 Mg Tablet, 10 MG PO QHS, (Reported) Omeprazole (Omeprazole) 20 Mg Capsule.dr, 20 MG PO DAILY, (Reported) Trazodone HCl (Trazodone HCl) 150 Mg Tablet, 150 MG PO QHS, (Reported) Scheduled PRN Gabapentin (Gabapentin) 100 Mg Capsule, 100 MG PO DAILY PRN for BACK PAIN, (Reported) Allergies Coded Allergies: No Known Drug Allergies (Verified Allergy, Unknown, 12/05/19) A-FIB/CHADSVASC A-FIB History Current/History of A-Fib/PAF?: No LINDA KU DO Apr 10, 2020 09:25
[2020-04-10 17:25] VITALS: BP 137/73
--- NOTE | 2020-04-10 18:33 | HPEPDOC ---
General Date of Admission Apr 09, 2020 at 15:24 Date of Service: Apr 10, 2020 Chief Complaint The patient is a 30-year-old male admitted with a reason for visit of Unspecified Mood Disorder. Source: Patient Exam Limitations: No limitations Timing/Duration: Week(s) Severity: Moderate History of Present Illness Patient is 30 years old male w past medical history of bipolar disorder, anxiety, hepatitis C, who was admitted in the hospital with suicidal ideation. He denied any cardiovascular problem, breathing problem, GI problem or dysuria. He denies fever, chills, nausea, vomiting, shortness of breath, palpitations, diarrhea or dysuria Home Medications Scheduled Buspirone HCl (Buspirone HCl) 7.5 Mg Tablet, 7.5 MG PO BID, (Reported) Cholecalciferol (Vitamin D3) (Vitamin D3) 1,000 Unit Tablet, 1,000 UNITS PO DAILY, (Reported) Olanzapine (Olanzapine) 10 Mg Tablet, 10 MG PO QHS, (Reported) Omeprazole (Omeprazole) 20 Mg Capsule.dr, 20 MG PO DAILY, (Reported) Trazodone HCl (Trazodone HCl) 150 Mg Tablet, 150 MG PO QHS, (Reported) Scheduled PRN Gabapentin (Gabapentin) 100 Mg Capsule, 100 MG PO DAILY PRN for BACK PAIN, (Reported) Allergies Coded Allergies: No Known Drug Allergies (Verified Allergy, Unknown, 12/05/19) Past Medical History Medical History Bipolar disorder, hep C, drug abuse history, anxiety Family History Mother has anxiety Social History * Smoker: current smoker Alcohol: occationally Drugs: other (IV amphetamines) A-FIB/CHADSVASC A-FIB History Current/History of A-Fib/PAF?: No Current PO Anticoag Therapy: No Review of Systems Constitutional: Denies: Chills, Fever Eyes: Denies: Pain, Vision change ENT: Denies: Head Aches Skin: Denies: Rash, Lesions Pulmonary: Denies: Dyspnea Cardiovascular: Denies: Chest Pain Gastrointestinal: Denies: Nausea, Vomiting Genitourinary: Denies: Dysuria, Frequency Hematologic: Denies: Bruising Endocrine: Denies: Polydipsia Musculoskeletal: Denies: Neck Pain Neurological: Denies: Weakness Psych: Reports: Anxiety, Depression; Denies: Mood Normal Physical Examination General Exam: Positive: Alert, Cooperative Eye Exam: Positive: PERRLA ENT Exam: Positive: Atraumatic Neck Exam: Positive: Supple; Negative: JVD Heart Exam: Positive: Rate Normal Telemetry: Positive: No significant arrhythmia Abdomen Exam: Positive: Normal bowel sounds Extremity Exam: Negative: Clubbing, Cyanosis Neuro Exam: Positive: Normal Gait, Strength at 5/5 X4 ext Psych Exam: Positive: Anxiety, Oriented x 3; Negative: Mental status NL Vital Signs Vital Signs Date Time Temp Pulse Resp B/P (MAP) Pulse Ox O2 Delivery O2 Flow Rate FiO2 04/10/20 17:25 98.0 73 16 137/73 (94) 04/10/20 06:00 97 Nasal Cannula Assessment/Plan Patient is 30 years old male w past medical history of bipolar disorder, anxiety, hepatitis C, who was admitted in the hospital with suicidal ideation. He denied any cardiovascular problem, breathing problem, GI problem or dysuria. He denies fever, chills, nausea, vomiting, shortness of breath, palpitations, diarrhea or dysuria Problems (1) Suicidal ideation Status: Acute Problem Text: Will defer treatment to psych team (2) Transaminitis Status: Acute Problem Text: Could be secondary to hepatitis C We'll check hepatitis C viral load Patient will need follow-up with infectious diseases specialist in the outpatient settings Plan / VTE VTE Prophylaxis Ordered?: No VTE Exclusion Mechanical Proph: Low Risk for VTE YEIMI SEWELL DO Apr 10, 2020 18:32
[2020-04-10] MEDS ORDERED: traZODone 50 MG TAB PO PRN (20:15)
[2020-04-11 06:46] VITALS: BP 114/57
--- NOTE | 2020-04-11 10:29 | MHDSPDOC ---
[facility] Discharge Summary Discharge Summary DATE OF ADMISSION: Apr 09, 2020 at 15:24 DATE OF DISCHARGE:Apr 11, 2020 at 13:55 DISCHARGE DIAGNOSES: See Problem list below REASON FOR ADMISSION: 30-year-old man with substance induced depression presents after making statements taking a small amount of hydrocodone CONSULTANTS INVOLVED:[ None (basic hospitalist screening)] TREATMENT AND PROGRESS ON THE UNIT : Medication changes: resumed on home medications Behavior on unit: friendly and amenable Treatment attendance: attended at times Notable issues on presentation: none notable State on discharge: [improved] DISCHARGE ASSESSMENT: The patient a 30 year old man, with likely substance related depression, presented to [facility], where they treated conservatively resolved without issue, purported are some observation discharged patient's request. Legal status considerations: The patient at the time of discharge did not meet criteria for involuntary admission/extension due to having a [normal] mental status exam, baseline insight into the situation, They are engaged in the discharge process, as well as being friendly and amenable in behavioral control and havent been engaging in any observed concerning behavior or ideation recently. They decline voluntary extension/admission at this time and must be discharged in good bubba, as Im unable to make a case for holding the patient against their will. They may have historical risk factors of admissions and other interactions with psychiatry however, those are not modifiable from a clinical perspective. The patient will need to be discharged in good bubba. MENTAL STATUS EXAMINATION ON DISCHARGE: General: [Well dressed with good hygiene] Speech: [Spontaneous and fluid] Thought processes: [Linear and logical] Thought content: [Future orientated] Abstract reasoning, and computation: [Intact] Description of associations: [Intact] Description of abnormal or psychotic thoughts:[Denies any suicidal or homicidal ideation. Denies any auditory or visual hallucinations. Does not appear to be responding to internal stimuli. Does not appear to be endorsing any bizarre or paranoid ideation.] Judgment: chronically limited Insight: chronically limited Orientation: [Alert and orientated 3] Recent and remote memory: [Intact] Attention span and concentration: [Intact] Fund of knowledge: [Adequate] Mood: ["okay"] Affect: [Euthymic with a full range] PLAN/FOLLOWUP ARRANGEMENTS: Follow up appointments made (PCP and MH in 5 days of D/C date) and safety plan completed. Safety Planning aspects completed prior to discharge [RN reviewed crisis hotline information and other aspects to empower patient to access care in interim before next appointment.] The amount of time spent in the coordination of care for this patient was approximately 30 minutes. Vital Signs/I&Os Vital Signs Date Time Temp Pulse Resp B/P (MAP) Pulse Ox O2 Delivery O2 Flow Rate FiO2 04/11/20 06:46 98.2 59 16 114/57 (76) 96 Room Air Laboratory Data Labs 24H Laboratory Tests 2 04/11/20 06:40: Medications Scheduled Buspirone HCl (Buspirone HCl) 7.5 Mg Tablet, 7.5 MG PO BID, (Reported) Cholecalciferol (Vitamin D3) (Vitamin D3) 1,000 Unit Tablet, 1,000 UNITS PO DAILY, (Reported) Olanzapine (Olanzapine) 10 Mg Tablet, 10 MG PO QHS, (Reported) Omeprazole (Omeprazole) 20 Mg Capsule.dr, 20 MG PO DAILY, (Reported) Trazodone HCl (Trazodone HCl) 150 Mg Tablet, 150 MG PO QHS, (Reported) Scheduled PRN Gabapentin (Gabapentin) 100 Mg Capsule, 100 MG PO DAILY PRN for BACK PAIN, (Reported) Allergies Coded Allergies: No Known Drug Allergies (Verified Allergy, Unknown, 12/05/19) Problems (1) Adjustment reaction, depressive, brief Status: Resolved (2) Poly-drug misuser Status: Chronic (3) Opioid abuse Status: Chronic Plan / VTE VTE Prophylaxis Ordered?: LINDA Hobbs DO Apr 11, 2020 10:29
[2020-04-13 10:08] LABS: HEPATITIS C QUANTITATION 3915950 IU/mL (.)
== END 2020-04-11 13:55 | disposition home or self-care (01) | DRG 754 ==
LOC: M ED 20:10 → EDBD 20:10 → M ED INP 04-09 15:24 → M PSY 04-09 16:00
PROVIDERS: ADMIT Psychiatry & Neurology Psychiatry; ATTEND Psychiatry & Neurology Addiction Medicine
DX: F43.21 Adjustment disorder with depressed mood (principal); F10.10 Alcohol abuse, uncomplicated; F19.10 Other psychoactive substance abuse, uncomplicated; B19.20 Unspecified viral hepatitis C without hepatic coma; R74.8 Abnormal levels of other serum enzymes; F11.10 Opioid abuse, uncomplicated; Z79.899 Other long term (current) drug therapy

== ENCOUNTER 2020-04-12 19:07 | Inpatient (IN) | payer MEDICAID, OTHER ==
[~2020-04-12] VITALS: Ht 172.7 cm; Wt 67.7 kg
[2020-04-12 19:53] LABS: HEMATOCRIT 44.2 % (42.0-52.0); HEMOGLOBIN 15.9 g/dl (13.5-17.5); MEAN CORPUSCULAR VOLUME 91.7 fl (80.0-96.0); PLATELET COUNT, AUTOMATED 227 10^3/uL (150-450); RED BLOOD COUNT 4.82 10^6/uL (4.30-6.10); WHITE BLOOD COUNT 9.5 10^3/uL (4.0-10.0)
[2020-04-12 20:29] LABS: ACETAMINOPHEN LEVEL < 2.0 UG/ML (10.0-30.0); ALBUMIN 4.7 GM/DL (3.2-5.2); ALT/SGPT 208 U/L (12-78); BILIRUBIN,DIRECT 0.4 MG/DL (0.0-0.2); BILIRUBIN,TOTAL 1.1 MG/DL (0.2-1.0); BLOOD UREA NITROGEN 9 MG/DL (7-18); CALCIUM LEVEL 9.8 MG/DL (8.5-10.1); CARBON DIOXIDE LEVEL 24 MEQ/L (21-32); CHLORIDE LEVEL 100 MEQ/L (98-107); CREATININE FOR GFR 0.91 MG/DL (0.70-1.30); ETHYL ALCOHOL (ETHANOL) 0.084 % (0.000-0.010); GLOMERULAR FILTRATION RATE > 60.0 (>60); GLUCOSE, FASTING 63 MG/DL (70-100); POTASSIUM SERUM 3.1 MEQ/L (3.5-5.1); SALICYLATE LEVEL < 1.7 MG/DL (5.0-30.0); SODIUM LEVEL 134 MEQ/L (136-145); TOTAL PROTEIN 7.9 GM/DL (6.4-8.2)
[2020-04-12 20:30] LABS: HCG, SERUM QUALITATIVE NEGATIVE
[2020-04-12 20:48] LABS: AMPHETAMINES LEVEL URINE POSITIVE (NEGATIVE); BARBITURATES URINE NEGATIVE (NEGATIVE); BENZODIAZEPINES URINE NEGATIVE (NEGATIVE); CANNABINOIDS URINE POSITIVE (NEGATIVE); COCAINE METABOLITE URINE NEGATIVE (NEGATIVE); METHADONE URINE NEGATIVE (NEGATIVE); OPIATES URINE NEGATIVE (NEGATIVE); PHENCYCLIDINE URINE NEGATIVE (NEGATIVE)
[2020-04-12] MEDS ORDERED: POTASSIUM CHLORIDE 10 MEQ SR TABLET PO ONE (21:00)
[2020-04-13] MEDS ORDERED: MAALOX 30 ML SUSP *UDC PO PRN
[2020-04-13] MEDS ORDERED: MOM 30ML SUSPENSION UDC PO PRN
[2020-04-13] MEDS ORDERED: NICOTINE 21MG/24HR 1 EA TRANSDERMAL TD PRN
[2020-04-13] MEDS ORDERED: ACETAMINOPHEN TAB 650MG DOSE (2X325MG) PO PRN
[2020-04-13] MEDS ORDERED: OLANZapine ORAL DISINTEGRATING TAB 5MG PO ONE (00:15)
[2020-04-13 01:24] VITALS: BP 121/74
[2020-04-13 06:54] VITALS: BP 86/51
[2020-04-13] MEDS: OLANZapine ORAL DISINTEGRATING TAB 5MG PO SCH (09:00)
--- NOTE | 2020-04-13 10:03 | MHHPEPDOC ---
[facility] History & Physical History and Physical DATE OF ADMISSION: Apr 12, 2020 at 23:58 HPI: Endy presents today for concerns regarding his stress. He was drinking a lot of alcohol and behaving unlike himself. He has not refilled his medications and therefore has not taken them. He will resume the Buspar and Abilify . FAMILY HISTORY: He denies any family mental health issues. MEDICAL HISTORY: His last visit here was 12 days ago Objective ehavior: Engaged. Pleasant. Cooperative with good eye contact. Affect: Appropriate to context. Full range. Mood: Appropriately reactive. Generally good. Euthymic. Speech: Normal volume. Normal rate. Motor: No gross motor abnormalities. Cognition: Alert, Attentive, and Oriented to person, place, time. Memory: No formal testing. No gross abnormalities of short or retirement memory noted during interview. Thought Form: Linear and goal directed. Thought Content: No evidence of suicidal ideation. No thoughts of self harm. No evidence of aggressive or homicidal ideation. No evidence of delusions. Perception: No perceptual abnormalities noted. 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 Restore his home medications of Buspar and abilify . We will continue to observe, likely discharge on Thursday. His estimated length of stay if between 1-3 days. 1. Risk for aggression. 2. Substance use. He would likely need observation. However, his sobriety is important. Discuss with patient about potential referral to rehab as hes unable to stay sober. Vital Signs Vital Signs Date Time Temp Pulse Resp B/P (MAP) Pulse Ox O2 Delivery O2 Flow Rate FiO2 04/13/20 06:54 97.5 79 14 86/51 (63) 97 Room Air Laboratory Data 24H Labs Laboratory Tests 2 04/12/20 19:29: Nucleated Red Blood Cells % (auto) 0.0, Anion Gap 10, Glomerular Filtration Rate > 60.0, Calcium Level 9.8, Total Bilirubin 1.1H, Direct Bilirubin 0.4H, Aspartate Amino Transf (AST/SGOT) 138H, Alanine Aminotransferase (ALT/SGPT) 208H, Alkaline Phosphatase 86, Total Protein 7.9, Albumin 4.7, Albumin/Globulin Ratio 1.5, Thyroid Stimulating Hormone (TSH) 1.370, Human Chorionic Gonadotropin, Qual NEGATIVE, Salicylates Level < 1.7L, Acetaminophen Level < 2.0L, Ethyl Alcohol Level 0.084H 04/12/20 20:02: Urine Opiates Screen NEGATIVE, Urine Methadone Screen NEGATIVE, Urine Barbiturates Screen NEGATIVE, Urine Phencyclidine Screen NEGATIVE, Urine Amphetamines Screen POSITIVEH, Urine Benzodiazepines Screen NEGATIVE, Urine Cocaine Metabolite Screen NEGATIVE, Urine Cannabinoids Screen POSITIVEH CBC/BMP Laboratory Tests 04/12/20 19:29 Medications Scheduled Buspirone HCl (Buspirone HCl) 7.5 Mg Tablet, 7.5 MG PO BID, (Reported) Cholecalciferol (Vitamin D3) (Vitamin D3) 1,000 Unit Tablet, 1,000 UNITS PO DAILY, (Reported) Olanzapine (Olanzapine) 10 Mg Tablet, 10 MG PO QHS, (Reported) Omeprazole (Omeprazole) 20 Mg Capsule.dr, 20 MG PO DAILY, (Reported) Trazodone HCl (Trazodone HCl) 150 Mg Tablet, 150 MG PO QHS, (Reported) Scheduled PRN Gabapentin (Gabapentin) 100 Mg Capsule, 100 MG PO DAILY PRN for BACK PAIN, (Reported) Allergies Coded Allergies: No Known Drug Allergies (Verified Allergy, Unknown, 12/05/19) LINDA KU DO Apr 13, 2020 10:03
[2020-04-13] MEDS ORDERED: GABAPENTIN 100 MG CAP PO PRN (10:45)
[2020-04-13] MEDS: VITAMIN D 1,000 INTERNATIONAL UNITS TABLET PO SCH (11:50)
[2020-04-13] MEDS: OMEPRAZOLE 20 MG CAP PO SCH (11:50)
[2020-04-13] MEDS: busPIRone 5 MG TAB PO SCH ×2 (11:51→20:06)
[2020-04-13 15:44] VITALS: BP 105/54
--- NOTE | 2020-04-13 16:32 | HPEPDOC ---
[facility] Medical History & Physical Date of Admission Apr 13, 2020 Date of Service: Apr 13, 2020 History and Physical Chief complaint: Agitation and suicidal ideation History of present illness: This is the 30-year-old male with no significant medical history except for alcohol abuse, polysubstance abuse, history of depression, comes to the psychiatric unit and we have been consulted for medical reasons. The patient was recently discharged from and she'll yesterday and today was agitated and trying to hurt himself . He currently has been admitted to the psychiatric facility and the management will be as per him. He denies any shortness of breath, any chest pain, any headache. He states that he does not have any intentions of hurting himself or anybody else at this point of time. Family history. Hypertension. Social history. UDS positive for amphetamines and blood alcohol levels are also elevated. Past medical history none except for depression. Past surgical history none as per patient Review of systems. Pertinent positive findings as per HPI and is negative PHYSICAL EXAMINATION: General: The patient is awake, alert, oriented x3, sitting up in the bed in no apparent distress. Head and Neck Exam: Extraocular muscles intact. Pupils equally round and reactive to light. Mucous membranes are moist. Neck is supple. There is no jugular venous distention (JVD). Cardiovascular: S1 and S2, regular rate. No real edema Respiratory: Clear auscultation Abdomen: Soft. Positive bowel sounds. Nontender. No organomegaly. Genitourinary: Deferred Musculoskeletal: Clubbing of the fingernails, no cyanosis was noted. Central Nervous System (PERMASTONE APPLICATOR): No focal deficit. Power is 5/5 in all extremitie s. Medications reviewed Radiology reviewed Assessment and plan This is a 31-year-old male was been admitted to the psychiatric facility for suicide attempt. And we have been consulted for medical management. 1. Suicide attempt/ideation. Management is per psychiatry. 2. Hypokalemia. Replace and monitor Diet as per psychiatric Thank so much for consulting us on this patient Vital Signs Vital Signs Date Time Temp Pulse Resp B/P (MAP) Pulse Ox O2 Delivery O2 Flow Rate FiO2 04/13/20 15:44 97.8 78 16 105/54 (71) 04/13/20 06:54 97 Room Air Laboratory Data Labs 24H Laboratory Tests 2 04/12/20 19:29: Nucleated Red Blood Cells % (auto) 0.0, Anion Gap 10, Glomerular Filtration Rate > 60.0, Calcium Level 9.8, Total Bilirubin 1.1H, Direct Bilirubin 0.4H, Aspartate Amino Transf (AST/SGOT) 138H, Alanine Aminotransferase (ALT/SGPT) 208H, Alkaline Phosphatase 86, Total Protein 7.9, Albumin 4.7, Albumin/Globulin Ratio 1.5, Thyroid Stimulating Hormone (TSH) 1.370, Human Chorionic Gonadotropin, Qual NEGATIVE, Salicylates Level < 1.7L, Acetaminophen Level < 2.0L, Ethyl Alcohol Level 0.084H 04/12/20 20:02: Urine Opiates Screen NEGATIVE, Urine Methadone Screen NEGATIVE, Urine Barbiturates Screen NEGATIVE, Urine Phencyclidine Screen NEGATIVE, Urine Amphetamines Screen POSITIVEH, Urine Benzodiazepines Screen NEGATIVE, Urine Cocaine Metabolite Screen NEGATIVE, Urine Cannabinoids Screen POSITIVEH CBC/BMP Laboratory Tests 04/12/20 19:29 Home Medications Scheduled Buspirone HCl (Buspirone HCl) 7.5 Mg Tablet, 7.5 MG PO BID Cholecalciferol (Vitamin D3) (Vitamin D3) 1,000 Unit Tablet, 1,000 UNITS PO DAILY Olanzapine (Olanzapine) 10 Mg Tablet, 10 MG PO QHS Omeprazole (Omeprazole) 20 Mg Capsule.dr, 20 MG PO DAILY Trazodone HCl (Trazodone HCl) 150 Mg Tablet, 150 MG PO QHS Scheduled PRN Gabapentin (Gabapentin) 100 Mg Capsule, 100 MG PO DAILY PRN for BACK PAIN Allergies Coded Allergies: No Known Drug Allergies (Verified Allergy, Unknown, 12/05/19) A-FIB/CHADSVASC A-FIB History Current/History of A-Fib/PAF?: No Current PO Anticoag Therapy: No UBALDO YUAN MD Apr 13, 2020 16:32
[2020-04-13] MEDS: OLANZapine 10 MG TAB PO SCH (20:05)
[2020-04-13] MEDS: traZODone 50 MG TAB PO PRN (20:06)
[2020-04-13] MEDS ORDERED: OLANZapine ORAL DISINTEGRATING TAB 5MG PO SCH (21:00)
[2020-04-14 06:26] VITALS: BP 143/64
[2020-04-14] MEDS: OLANZapine ORAL DISINTEGRATING TAB 5MG PO SCH (09:00)
[2020-04-14] MEDS: OMEPRAZOLE 20 MG CAP PO SCH (09:25)
[2020-04-14] MEDS: VITAMIN D 1,000 INTERNATIONAL UNITS TABLET PO SCH (09:25)
[2020-04-14] MEDS: busPIRone 5 MG TAB PO SCH ×2 (09:25→21:33)
[2020-04-14 15:32] VITALS: BP 120/81
[2020-04-14] MEDS: OLANZapine 10 MG TAB PO SCH (21:00)
[2020-04-14] MEDS: traZODone 50 MG TAB PO PRN (21:33)
[2020-04-15] MEDS ORDERED: traZODone 100 MG TAB PO ONE (00:30)
[2020-04-15 06:36] VITALS: BP 120/69
[2020-04-15] MEDS: OLANZapine ORAL DISINTEGRATING TAB 5MG PO SCH (09:00)
[2020-04-15] MEDS: VITAMIN D 1,000 INTERNATIONAL UNITS TABLET PO SCH (09:24)
[2020-04-15] MEDS: OMEPRAZOLE 20 MG CAP PO SCH (09:24)
[2020-04-15] MEDS: busPIRone 5 MG TAB PO SCH ×2 (09:24→21:22)
--- NOTE | 2020-04-15 09:28 | MHIPN ---
DATE: 04/14/2020 The patient is seen via telepsychiatry due to the current Coronavirus crisis. The patient states "I'm doing good." He says he was able to get some sleep. He tells me that he is taking his medicine now, and after that it is very hard to understand what he said, but it sounded like he said that he had made some "stupid decisions." MENTAL STATUS EXAMINATION: This patient is alert, appears to be oriented at least to person and place. As I said, at times he is having some pressured speech and it is difficult to understand what he is saying. He appears to be very guarded. There is no formal thought disorder. He says his mood is good. Affect is flat. He is denying suicidal or homicidal ideations. I did not elicit any gross psychotic symptoms. Insight and judgment appears to be poor. DIAGNOSES: 1. Impulse control disorder unspecified. 2. Alcohol use disorder unspecified. 3. Rule out alcohol induced mood disorder. 4. Other stimulant use disorder. TREATMENT PLAN: We will continue to monitor the patient on the current medications and titrate them as indicated. We will continue to monitor him for continued resolution of any suicidal ideations or any possible homicidal thoughts and for stabilization of his mood.
[2020-04-15 15:56] VITALS: BP 122/59
[2020-04-15] MEDS: OLANZapine 10 MG TAB PO SCH (21:00)
[2020-04-15] MEDS: traZODone 50 MG TAB PO PRN (21:22)
[2020-04-16 06:45] VITALS: BP 111/66
[2020-04-16] MEDS: OLANZapine ORAL DISINTEGRATING TAB 5MG PO SCH (09:00)
[2020-04-16] MEDS: VITAMIN D 1,000 INTERNATIONAL UNITS TABLET PO SCH (09:58)
[2020-04-16] MEDS: OMEPRAZOLE 20 MG CAP PO SCH (09:58)
[2020-04-16] MEDS: busPIRone 5 MG TAB PO SCH ×2 (09:58→20:53)
[2020-04-16] MEDS: PILL CUTTER 1 EACH XX PRN (09:59)
--- NOTE | 2020-04-16 10:47 | MHIPN ---
DATE: 04/15/2020 Patient was seen via telepsychiatry due to the current coronavirus crisis. Today, the patient tells me," I am doing good". He tells me that he is not suicidal or homicidal. He states that he did not sleep well last night but it turns out that he had been on 150 mg of trazodone which we have now corrected and he had only been getting 50 so hopefully he can sleep better tonight. MENTAL STATUS EXAMINATION: Patient is alert and oriented times three. Eye contact is fairly good. He does seem to be a bit guarded. There is no formal thought disorder noted. The patient denies any suicidal or homicidal ideations. He says his mood is "good". Affect is constricted but appropriate to mood. He is not psychotic. Concentration is fair. Memory intact. Insight and judgment is fair. DIAGNOSES: Impulse control disorder, unspecified. Alcohol use disorder, unspecified. Rule out alcohol induced mood disorder. Other stimulant dependence in remission. TREATMENT PLAN: We will continued to monitor the patient for continued resolution of suicidal and homicidal ideations and further stabilization of his moods.
[2020-04-16 16:42] VITALS: BP 129/66
[2020-04-16] MEDS: traZODone 50 MG TAB PO PRN (20:53)
[2020-04-16] MEDS: OLANZapine 10 MG TAB PO SCH (20:54)
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
[2020-04-17 06:23] VITALS: BP 108/56
[2020-04-17] MEDS: PILL CUTTER 1 EACH XX PRN (08:53)
[2020-04-17] MEDS: VITAMIN D 1,000 INTERNATIONAL UNITS TABLET PO SCH (08:54)
[2020-04-17] MEDS: busPIRone 5 MG TAB PO SCH ×2 (08:54→21:19)
[2020-04-17] MEDS: OMEPRAZOLE 20 MG CAP PO SCH (08:54)
[2020-04-17] MEDS: OLANZapine ORAL DISINTEGRATING TAB 5MG PO SCH (08:58)
[2020-04-17 16:37] VITALS: BP 119/78
[2020-04-17] MEDS: OLANZapine 10 MG TAB PO SCH (21:00)
[2020-04-17] MEDS: traZODone 50 MG TAB PO PRN (21:19)
[2020-04-18 06:32] VITALS: BP 113/63
[2020-04-18] MEDS: OLANZapine ORAL DISINTEGRATING TAB 5MG PO SCH (08:06)
[2020-04-18] MEDS: VITAMIN D 1,000 INTERNATIONAL UNITS TABLET PO SCH (08:07)
[2020-04-18] MEDS: OMEPRAZOLE 20 MG CAP PO SCH (08:07)
[2020-04-18] MEDS: busPIRone 5 MG TAB PO SCH ×2 (08:07→21:07)
[2020-04-18] MEDS: PILL CUTTER 1 EACH XX PRN (08:07)
--- NOTE | 2020-04-18 09:24 | MHIPNPDOC ---
[facility] Progress Note Progress Note DATE OF SERVICE: 04/18/20 HPI: Jose presents today for a follow-up appointment. Jose notes that he does not want to stay in the rehabilitation facility. Jose denies suicidal and homicidal thoughts. MEDICATIONS: He has stopped taking Zyprexa and started taking Abilify. Objective Appearance: Good hygiene. Affect: Mildly dysthymic, but denies any suicidal or homicidal ideation. Cognition: Grossly intact. Thought Form: Linear and goal directed. Judgement: Poor judgement, although appears to be improving. Associations grosly intact. Insight: Poor insight, although appears to be improving. Associations grossly intact. Assessment F32.9 Major depressive disorder, single episode, unspecified F29 Unspecified psychosis not due to a substance or known physiological condition F15.20 Other stimulant dependence, uncomplicated F12.10 Cannabis abuse, uncomplicated F10.10 Alcohol abuse, uncomplicated Plan The patient will be referred to long-term rehab with a bed-to-bed transfer as alee had multiple admissions [id number] and is difficult to keep him stable. His judgement and insight are still quite poor on the situations that have brought him in, and his violence level has increased significantly when hes intoxicated. Although he has been behaving himself here, a bed-to-bed transfer although, somewhat moot in point, would likely give him the best shot of staying sober long enough to get treatment as he has not been able to stay stable for v neetu long once he leaves. Continue the patients BuSpar and Abilify at current doses. Discontinue Zyprexa as the patient does not want to take it and it is too excessive for the patients current dose likely an error. Follow-up tomorrow. Vital Signs Vital Signs Date Time Temp Pulse Resp B/P (MAP) Pulse Ox O2 Delivery O2 Flow Rate FiO2 04/18/20 06:32 98.3 68 16 113/63 (80) Room Air 04/16/20 06:45 96 Current Medications Current Medications Medications (Trade) Dose Ordered Sig/Sreedhar Route PRN Reason Start Time Stop Time Status Last Admin Dose Admin Acetaminophen (Tylenol Tab) 650 mg Q6HP PRN PO HEADACHE or DISCOMFORT 04/13/20 00:00 Al Hydrox/Mg Hydrox/Simethicone (Mylanta) 30 ml Q4HP PRN PO HEARTBURN/INDIGESTION 04/13/20 00:00 Aripiprazole (AbiLIFY) 5 mg QHS PO 04/13/20 21:00 04/17/20 21:19 Buspirone HCl (Buspar) 7.5 mg BID PO 04/13/20 09:00 04/18/20 08:07 Gabapentin (Neurontin) 100 mg DAILY PRN PO BACK PAIN 04/13/20 10:45 Home Med (Med Rec Complete!) ASDIRECTED XX 04/12/20 21:45 04/12/20 21:40 DC Magnesium Hydroxide (Milk Of Magnesia) 30 ml DAILYPRN PRN PO CONSTIPATION 04/13/20 00:00 Nicotine (Nicoderm Cq 21mg) 1 patch DAILY PRN TD Nicotine withdrawl 04/13/20 00:00 Olanzapine (ZyPREXA ZYDIS) 5 mg QAM PO 04/13/20 09:00 Olanzapine (ZyPREXA ZYDIS) 10 mg QHS PO 04/13/20 21:00 04/13/20 10:48 DC Olanzapine (ZyPREXA) 10 mg QHS PO 04/13/20 21:00 Omeprazole (PriLOSEC) 20 mg DAILY PO 04/13/20 09:00 04/18/20 08:07 Trazodone HCl (Desyrel) 50 mg QHSP PRN PO INSOMNIA 04/13/20 00:00 04/15/20 00:27 DC 04/14/20 21:33 Trazodone HCl (Desyrel) 150 mg QHSP PRN PO INSOMNIA 04/15/20 21:00 04/17/20 21:19 Vitamin D (Vitamin D) 1,000 units DAILY PO 04/13/20 09:00 04/18/20 08:07 Allergies Coded Allergies: No Known Drug Allergies (Verified Allergy, Unknown, 12/05/19) LINDA KU DO Apr 18, 2020 09:24
[2020-04-18 16:30] VITALS: BP 108/58
[2020-04-18] MEDS: traZODone 50 MG TAB PO PRN (21:07)
--- NOTE | 2020-04-18 21:44 | MHIPN ---
DATE: 04/17/2020 Patient is seen via telepsychiatry due to the current coronavirus crisis. The patient today at first advised me that he was doing good. He continues to be guarded, minimizing the events prior to admission, and so I advised him of this, the fact that he is not willing to even discuss the events prior to admission makes me question his stability. He did tell me that he was on a ledge, and he was having suicidal thoughts, but he said that he did not threaten his girlfriend, that he just wanted to kill himself. Apparently, the patient's mother did advise staff that she continues to be very concerned about his mental health. She says she feels that his problems are "beyond just the substance abuse." The patient apparently will be interviewed via phone this afternoon at the 90-day rehabilitation program at [facility]. MENTAL STATUS EXAMINATION: He is alert and oriented times three. Eye contact is fairly good. He is still guarded. There is no formal thought disorder noted. He says his mood is good. Affect is appropriate to mood. He continues to deny that he is suicidal or homicidal. Concentration is fair. Memory intact. Insight and judgment fair. DIAGNOSES: 1. Impulse control disorder. 2. Unspecified alcohol use disorder, unspecified, rule out alcohol-induced mood disorder. 3. Abuse disorder, in remission. TREATMENT PLAN: We will continue to monitor the patient for continued resolution of suicidal and homicidal ideations and continue elevation and stabilization of his mood. He will have that interview today with [facility]. Hopefully he will get accepted there soon. KIRSTIN
[2020-04-19 06:24] VITALS: BP 141/67
--- NOTE | 2020-04-19 09:48 | MHIPNPDOC ---
[facility] Progress Note Progress Note DATE OF SERVICE: 04/19/20 Jose presents today for a follow up. He is ambivalent about doing the bed-to-bed program. He denies any suicidal thoughts, homicidal thoughts, and hallucinations. MEDICATIONS: Currently tolerating medications well and denies any side effects. Objective Appearance: Well groomed. Well nourished. Behavior: Engaged. Pleasant. Cooperative with good eye contact. Affect: Appropriate to context. Full range. Mood: Generally good. Euthymic. Appropriately reactive. Speech: Normal rate. Normal volume. Motor: No gross motor abnormalities. Cognition: Alert, Attentive, and Oriented to person, place, time. Memory: No formal testing. 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 Thought Form: Linear and goal directed. Thought Content: No evidence of delusions. No evidence of aggressive or homicidal ideation. No thoughts of self harm. No evidence of suicidal ideation. Perception: No perceptual abnormalities noted. Judgement: intact as evidenced by decision making in the recent past. Insight: good insight into symptoms and treatment options. Assessment F33.9 Major depressive disorder, recurrent, unspecified F19.94 Other psychoactive substance use, unspecified with psychoactive substance-induced mood disorder F10.94 Alcohol use, unspecified with alcohol-induced mood disorder F15.10 Other stimulant abuse, uncomplicated Plan Continue current medications. Pursue bed-to-bed transfer. Patient is ambivalent about this, however, it does give him his best opportunity to remain sober. Vital Signs Vital Signs Date Time Temp Pulse Resp B/P (MAP) Pulse Ox O2 Delivery O2 Flow Rate FiO2 04/19/20 06:24 97.7 78 18 141/67 (91) Room Air 04/16/20 06:45 96 Current Medications Current Medications Medications (Trade) Dose Ordered Sig/Sreedhar Route PRN Reason Start Time Stop Time Status Last Admin Dose Admin Acetaminophen (Tylenol Tab) 650 mg Q6HP PRN PO HEADACHE or DISCOMFORT 04/13/20 00:00 Al Hydrox/Mg Hydrox/Simethicone (Mylanta) 30 ml Q4HP PRN PO HEARTBURN/INDIGESTION 04/13/20 00:00 Aripiprazole (AbiLIFY) 5 mg QHS PO 04/13/20 21:00 04/18/20 21:07 Buspirone HCl (Buspar) 7.5 mg BID PO 04/13/20 09:00 04/18/20 21:07 Gabapentin (Neurontin) 100 mg DAILY PRN PO BACK PAIN 04/13/20 10:45 Home Med (Med Rec Complete!) ASDIRECTED XX 04/12/20 21:45 04/12/20 21:40 DC Magnesium Hydroxide (Milk Of Magnesia) 30 ml DAILYPRN PRN PO CONSTIPATION 04/13/20 00:00 Nicotine (Nicoderm Cq 21mg) 1 patch DAILY PRN TD Nicotine withdrawl 04/13/20 00:00 Olanzapine (ZyPREXA ZYDIS) 5 mg QAM PO 04/13/20 09:00 Olanzapine (ZyPREXA ZYDIS) 10 mg QHS PO 04/13/20 21:00 04/13/20 10:48 DC Olanzapine (ZyPREXA) 10 mg QHS PO 04/13/20 21:00 04/18/20 10:49 DC Omeprazole (PriLOSEC) 20 mg DAILY PO 04/13/20 09:00 04/18/20 08:07 Trazodone HCl (Desyrel) 50 mg QHSP PRN PO INSOMNIA 04/13/20 00:00 04/15/20 00:27 DC 04/14/20 21:33 Trazodone HCl (Desyrel) 150 mg QHSP PRN PO INSOMNIA 04/15/20 21:00 04/18/20 21:07 Vitamin D (Vitamin D) 1,000 units DAILY PO 04/13/20 09:00 04/18/20 08:07 Allergies Coded Allergies: No Known Drug Allergies (Verified Allergy, Unknown, 12/05/19) LINDA KU DO Apr 19, 2020 09:48
[2020-04-19] MEDS: OLANZapine ORAL DISINTEGRATING TAB 5MG PO SCH ×2 (10:02→10:04)
[2020-04-19] MEDS: VITAMIN D 1,000 INTERNATIONAL UNITS TABLET PO SCH (10:02)
[2020-04-19] MEDS: OMEPRAZOLE 20 MG CAP PO SCH (10:02)
[2020-04-19] MEDS: busPIRone 5 MG TAB PO SCH ×2 (10:02→20:32)
[2020-04-19 17:35] VITALS: BP 125/67
[2020-04-19] MEDS: traZODone 50 MG TAB PO PRN (20:32)
[2020-04-20 06:48] VITALS: BP 108/53
[2020-04-20] MEDS: OLANZapine ORAL DISINTEGRATING TAB 5MG PO SCH (09:00)
[2020-04-20] MEDS: PILL CUTTER 1 EACH XX PRN ×2 (09:05→20:29)
[2020-04-20] MEDS: busPIRone 5 MG TAB PO SCH ×2 (09:05→20:30)
[2020-04-20] MEDS: VITAMIN D 1,000 INTERNATIONAL UNITS TABLET PO SCH (09:05)
[2020-04-20] MEDS: OMEPRAZOLE 20 MG CAP PO SCH (09:05)
--- NOTE | 2020-04-20 09:24 | MHIPNPDOC ---
[facility] Progress Note Progress Note DATE OF SERVICE: 04/20/20 HPI: Jose presents today for a follow up on his medications and discharge Objective Appearance: Well groomed. Well nourished. Mood: mildly dysthymic. Speech: Normal volume. Normal rate. Cognition: grossly intact. Thought Form: Linear and goal directed. Thought Content: associations intact. no signs of psychotic thought process. denies any suicidal or homicidal ideation. Judgement: intact as evidenced by decision making in the recent past. Assessment F19.24 Other psychoactive substance dependence with psychoactive substance-induced mood disorder F19.10 Other psychoactive substance abuse, uncomplicated Plan He will be discharged on Thursday or soonest day for bed-to-bed transfer to rehab as this was the original plan. Will make sure oncoming providers are aware of plans so that it goes smoothly as the patient ideally would go bed-to-bed to avoid chance of relapse and subsequent behavioral problems. Continue his current medications without alterations at this time. Vital Signs Vital Signs Date Time Temp Pulse Resp B/P (MAP) Pulse Ox O2 Delivery O2 Flow Rate FiO2 04/20/20 06:48 97.5 65 12 108/53 (71) 96 Room Air Current Medications Current Medications Medications (Trade) Dose Ordered Sig/Sreedhar Route PRN Reason Start Time Stop Time Status Last Admin Dose Admin Acetaminophen (Tylenol Tab) 650 mg Q6HP PRN PO HEADACHE or DISCOMFORT 04/13/20 00:00 Al Hydrox/Mg Hydrox/Simethicone (Mylanta) 30 ml Q4HP PRN PO HEARTBURN/INDIGESTION 04/13/20 00:00 Aripiprazole (AbiLIFY) 5 mg QHS PO 04/13/20 21:00 04/19/20 20:32 Buspirone HCl (Buspar) 7.5 mg BID PO 04/13/20 09:00 04/20/20 09:05 Gabapentin (Neurontin) 100 mg DAILY PRN PO BACK PAIN 04/13/20 10:45 Home Med (Med Rec Complete!) ASDIRECTED XX 04/12/20 21:45 04/12/20 21:40 DC Magnesium Hydroxide (Milk Of Magnesia) 30 ml DAILYPRN PRN PO CONSTIPATION 04/13/20 00:00 Nicotine (Nicoderm Cq 21mg) 1 patch DAILY PRN TD Nicotine withdrawl 04/13/20 00:00 Olanzapine (ZyPREXA ZYDIS) 5 mg QAM PO 04/13/20 09:00 Olanzapine (ZyPREXA ZYDIS) 10 mg QHS PO 04/13/20 21:00 04/13/20 10:48 DC Olanzapine (ZyPREXA) 10 mg QHS PO 04/13/20 21:00 04/18/20 10:49 DC Omeprazole (PriLOSEC) 20 mg DAILY PO 04/13/20 09:00 04/20/20 09:05 Trazodone HCl (Desyrel) 50 mg QHSP PRN PO INSOMNIA 04/13/20 00:00 04/15/20 00:27 DC 04/14/20 21:33 Trazodone HCl (Desyrel) 150 mg QHSP PRN PO INSOMNIA 04/15/20 21:00 04/19/20 20:32 Vitamin D (Vitamin D) 1,000 units DAILY PO 04/13/20 09:00 04/20/20 09:05 Allergies Coded Allergies: No Known Drug Allergies (Verified Allergy, Unknown, 12/05/19) LINDA KU DO Apr 20, 2020 09:24
[2020-04-20 16:07] VITALS: BP 131/81
[2020-04-20] MEDS: traZODone 50 MG TAB PO PRN (20:30)
[2020-04-21 06:23] VITALS: BP 121/60
[2020-04-21] MEDS: VITAMIN D 1,000 INTERNATIONAL UNITS TABLET PO SCH (08:09)
[2020-04-21] MEDS: busPIRone 5 MG TAB PO SCH ×2 (08:09→20:14)
[2020-04-21] MEDS: PILL CUTTER 1 EACH XX PRN (08:09)
[2020-04-21] MEDS: OMEPRAZOLE 20 MG CAP PO SCH (08:09)
[2020-04-21] MEDS: OLANZapine ORAL DISINTEGRATING TAB 5MG PO SCH (08:45)
[2020-04-21 16:58] VITALS: BP 131/78
[2020-04-21] MEDS: traZODone 50 MG TAB PO PRN (20:14)
[2020-04-22 06:25] VITALS: BP 108/58
[2020-04-22] MEDS: PILL CUTTER 1 EACH XX PRN (08:27)
[2020-04-22] MEDS: VITAMIN D 1,000 INTERNATIONAL UNITS TABLET PO SCH (08:28)
[2020-04-22] MEDS: OMEPRAZOLE 20 MG CAP PO SCH (08:28)
[2020-04-22] MEDS: busPIRone 5 MG TAB PO SCH ×2 (08:28→20:15)
[2020-04-22] MEDS: OLANZapine ORAL DISINTEGRATING TAB 5MG PO SCH (08:30)
[2020-04-22 16:22] VITALS: BP 104/60
[2020-04-22] MEDS: traZODone 50 MG TAB PO PRN (20:15)
[2020-04-23 06:17] VITALS: BP 120/82
[2020-04-23] MEDS: OMEPRAZOLE 20 MG CAP PO SCH (08:55)
[2020-04-23] MEDS: busPIRone 5 MG TAB PO SCH ×2 (08:55→20:19)
[2020-04-23] MEDS: VITAMIN D 1,000 INTERNATIONAL UNITS TABLET PO SCH (08:55)
[2020-04-23] MEDS: OLANZapine ORAL DISINTEGRATING TAB 5MG PO SCH (08:57)
[2020-04-23 16:06] VITALS: BP 139/95
[2020-04-23] MEDS: traZODone 50 MG TAB PO PRN (20:19)
--- NOTE | 2020-04-23 21:20 | MHIPNPDOC ---
[facility] Progress Note Progress Note DATE OF SERVICE: 04/23/20 Patient was seen for approximately 20 minutes Patient was seen for a medical psychotherapy session in which the patient's abdiel tment plan was reviewed, mental status exam performed, vital signs reviewed, current medical conditions reviewed, and treatment goals were reviewed This visit was performed as a telehealth visit utilizing an interactive a/v telecommunications system or telephone that permitted real time communication between myself and the patient--permission/consent from patient/guardian was obt ained The patient was admitted here on April 12 for a dual diagnosis of depression and alcohol abuse and dependency At this point he is ready for discharge and will be transferred to a residential treatment center for alcohol tomorrow MENTAL STATUS EXAM Level of consciousness--patient was alert and oriented to time place person Appearance-normal posture, normal dress, no prominent physical abnormalities, alert, cooperative Behavior--like to good, no psychomotor agitation or retardation, no abnormal movements, no tremor Speech--normal rate and rhythm--normal volume Mood--euthymic Affect--normal range and consistent with mood--stable Thought processes--logical and linear , goal directed and coherent--no thought blocking or flight of ideas, no loose associations, no tangential thinking, no word salad, no thought blocking, no circumstantiality Thought content--no ideas of reference no auditory or visual hallucinations, no delusional thinking, no thoughts of derealization or depersonalization, no obsessive thinking, no expressed phobias, Cognition--patient was alert and able to focus-sustained appropriate mental attention-memory immediate and short-term memory intact-abstract thinking present, Insight---fair Judgment or the ability to anticipate consequences of behavior intact Patient denied any suicidal ideation or impulses Patient denied any homicidal impulses or ideation Today was decided that he would also manager change to the injectable form of Abilify to receive 40 mg today and go through a period of observation with the planned discharge for tomorrow morning Vital Signs Vital Signs Date Time Temp Pulse Resp B/P (MAP) Pulse Ox O2 Delivery O2 Flow Rate FiO2 04/23/20 16:06 98.5 73 16 139/95 (110) 04/23/20 06:17 96 Room Air Current Medications Current Medications Medications (Trade) Dose Ordered Sig/Sreedhar Route PRN Reason Start Time Stop Time Status Last Admin Dose Admin Acetaminophen (Tylenol Tab) 650 mg Q6HP PRN PO HEADACHE or DISCOMFORT 04/13/20 00:00 Al Hydrox/Mg Hydrox/Simethicone (Mylanta) 30 ml Q4HP PRN PO HEARTBURN/INDIGESTION 04/13/20 00:00 04/23/20 20:21 Aripiprazole (AbiLIFY) 5 mg QHS PO 04/13/20 21:00 04/23/20 21:16 DC 04/23/20 20:19 Buspirone HCl (Buspar) 7.5 mg BID PO 04/13/20 09:00 04/23/20 20:19 Gabapentin (Neurontin) 100 mg DAILY PRN PO BACK PAIN 04/13/20 10:45 Home Med (Med Rec Complete!) ASDIRECTED XX 04/12/20 21:45 04/12/20 21:40 DC Magnesium Hydroxide (Milk Of Magnesia) 30 ml DAILYPRN PRN PO CONSTIPATION 04/13/20 00:00 Nicotine (Nicoderm Cq 21mg) 1 patch DAILY PRN TD Nicotine withdrawl 04/13/20 00:00 Olanzapine (ZyPREXA ZYDIS) 5 mg QAM PO 04/13/20 09:00 04/23/20 21:17 DC Olanzapine (ZyPREXA ZYDIS) 10 mg QHS PO 04/13/20 21:00 04/13/20 10:48 DC Olanzapine (ZyPREXA) 10 mg QHS PO 04/13/20 21:00 04/18/20 10:49 DC Omeprazole (PriLOSEC) 20 mg DAILY PO 04/13/20 09:00 04/23/20 08:55 Trazodone HCl (Desyrel) 50 mg QHSP PRN PO INSOMNIA 04/13/20 00:00 04/15/20 00:27 DC 04/14/20 21:33 Trazodone HCl (Desyrel) 150 mg QHSP PRN PO INSOMNIA 04/15/20 21:00 04/23/20 20:19 Vitamin D (Vitamin D) 1,000 units DAILY PO 04/13/20 09:00 04/23/20 08:55 Allergies Coded Allergies: No Known Drug Allergies (Verified Allergy, Unknown, 12/05/19) Rubio Car MD Apr 23, 2020 21:20
[2020-04-23] MEDS ORDERED: ARIPiprazole MONOHYDRATE 400 MG INJ (ABILIFY) IM ONE (21:30)
[2020-04-24 06:17] VITALS: BP 139/74
[2020-04-24] MEDS: OMEPRAZOLE 20 MG CAP PO SCH (08:59)
[2020-04-24] MEDS: busPIRone 5 MG TAB PO SCH (08:59)
[2020-04-24] MEDS: VITAMIN D 1,000 INTERNATIONAL UNITS TABLET PO SCH (08:59)
== END 2020-04-24 12:05 | DRG 758 ==
LOC: M ED 19:07 → M ED INP 23:58 → M PSY 04-13 00:49
PROVIDERS: ADMIT Psychiatry & Neurology Psychiatry; ATTEND Psychiatry & Neurology Addiction Medicine
DX: F63.9 Impulse disorder, unspecified (principal); F10.94 Alcohol use, unspecified with alcohol-induced mood disorder; R45.851 Suicidal ideations; F15.21 Other stimulant dependence, in remission; Z79.899 Other long term (current) drug therapy; E87.6 Hypokalemia

== ENCOUNTER 2020-05-28 06:09 | Inpatient (IN) | payer MEDICAID ==
[~2020-05-28 06:09] MED LIST changes: +D31000TA2 PO; +PANT40TA29; -PANT40TA3; -VITAD1000T PO
[2020-05-28] MEDS ORDERED: LORazepam 2 MG/ML VIAL ONE ×2 (08:09→10:03)
[2020-07-19 01:30] LABS: HEMATOCRIT 39.2 % (42.0-52.0); HEMOGLOBIN 14.1 g/dl (13.5-17.5); MEAN CORPUSCULAR HEMOGLOBIN 33.1 pg (27.0-33.0); PLATELET COUNT, AUTOMATED 219 10^3/uL (150-450); RED BLOOD COUNT 4.26 10^6/uL (4.30-6.10); WHITE BLOOD COUNT 10.3 10^3/uL (4.0-10.0)
[2020-08-06 01:28] LABS: AMPHETAMINES LEVEL URINE NEGATIVE (NEGATIVE); BARBITURATES URINE NEGATIVE (NEGATIVE); BENZODIAZEPINES URINE NEGATIVE (NEGATIVE); CANNABINOIDS URINE NEGATIVE (NEGATIVE); COCAINE METABOLITE URINE NEGATIVE (NEGATIVE); METHADONE URINE NEGATIVE (NEGATIVE); OPIATES URINE NEGATIVE (NEGATIVE); PHENCYCLIDINE URINE NEGATIVE (NEGATIVE)
[2020-08-21 10:02] LABS: ACETAMINOPHEN LEVEL < 2.0 UG/ML (10.0-30.0); ALBUMIN 4.4 GM/DL (3.2-5.2); ALT/SGPT 331 U/L (12-78); BILIRUBIN,DIRECT 0.2 MG/DL (0.0-0.2); BILIRUBIN,TOTAL 0.5 MG/DL (0.2-1.0); BLOOD UREA NITROGEN 12 MG/DL (7-18); CALCIUM LEVEL 8.8 MG/DL (8.5-10.1); CARBON DIOXIDE LEVEL 29 MEQ/L (21-32); CHLORIDE LEVEL 104 MEQ/L (98-107); CREATININE FOR GFR 1.04 MG/DL (0.70-1.30); ETHYL ALCOHOL (ETHANOL) < 0.003 % (0.000-0.010); GLOMERULAR FILTRATION RATE > 60.0 (>60); GLUCOSE, FASTING 70 MG/DL (70-100); POTASSIUM SERUM 3.7 MEQ/L (3.5-5.1); SALICYLATE LEVEL < 1.7 MG/DL (5.0-30.0); SODIUM LEVEL 142 MEQ/L (136-145); TOTAL PROTEIN 7.5 GM/DL (6.4-8.2)
--- NOTE | 2020-08-28 11:20 | MHDSPDOC ---
[facility] Discharge Summary Discharge Summary DATE OF ADMISSION: May 28, 2020 at 23:50 DATE OF DISCHARGE: May 29, 2020 at 10:32 Please see H&P for same-day discharge Medications Unable to Obtain Active Prescriptions or Reported Meds Allergies Coded Allergies: No Known Drug Allergies (Verified Allergy, Unknown, 12/05/19) LINDA KU DO Aug 28, 2020 11:20
== END 2020-05-29 10:32 | disposition home or self-care (01) | DRG 776 ==
LOC: M ED 06:09 → M PSY 23:50
PROVIDERS: ADMIT Psychiatry & Neurology Addiction Medicine; ATTEND Psychiatry & Neurology Addiction Medicine
DX: F19.159 Other psychoactive substance abuse with psychoactive substance-induced psychotic disorder, unspecified (principal); F43.20 Adjustment disorder, unspecified

== ENCOUNTER 2020-08-18 01:43 | Inpatient (IN) | payer MEDICAID, OTHER ==
[~2020-08-18] VITALS: Ht 172.7 cm; Wt 62.5 kg
[2020-08-18 02:09] LABS: BASO % 0.1 % (0.0-1.0); EOS % 0.1 % (0.0-3.0); HEMOGLOBIN 14.8 g/dl (13.5-17.5); LYMPH # 0.7 10^3/uL (1.5-5.0); MEAN CORPUSCULAR HEMOGLOBIN 31.8 pg (27.0-33.0); MEAN CORPUSCULAR HGB CONC 34.4 g/dl (32.0-36.5); MEAN CORPUSCULAR VOLUME 92.5 fl (80.0-96.0); MONO % 5.6 % (0.0-5.0); NEUTROPHILS # 16.5 10^3/uL (1.5-8.5); NEUTROPHILS % 89.7 % (36.0-66.0); PLATELET COUNT, AUTOMATED 272 10^3/uL (150-450); RED BLOOD COUNT 4.65 10^6/uL (4.30-6.10); WHITE BLOOD COUNT 18.4 10^3/uL (4.0-10.0)
[2020-08-18] MEDS ORDERED: NS 1,000 ML IV ONE (02:15)
[2020-08-18 02:37] LABS: ACETAMINOPHEN LEVEL < 2.0 UG/ML (10.0-30.0); ALBUMIN 4.7 GM/DL (3.2-5.2); ALT/SGPT 62 U/L (12-78); BILIRUBIN,DIRECT 0.1 MG/DL (0.0-0.2); BILIRUBIN,TOTAL 0.4 MG/DL (0.2-1.0); BLOOD UREA NITROGEN 9 MG/DL (7-18); CALCIUM LEVEL 9.2 MG/DL (8.5-10.1); CARBON DIOXIDE LEVEL 27 MEQ/L (21-32); CHLORIDE LEVEL 104 MEQ/L (98-107); CPK CREATINE PHOSPHOKINASE 268 U/L (39-308); CREATININE FOR GFR 1.52 MG/DL (0.70-1.30); ETHYL ALCOHOL (ETHANOL) 0.003 % (0.000-0.010); GLOMERULAR FILTRATION RATE 58.4 (>60); GLUCOSE, FASTING 100 MG/DL (70-100); SALICYLATE LEVEL < 1.7 MG/DL (5.0-30.0); SODIUM LEVEL 141 MEQ/L (136-145); TOTAL PROTEIN 8.4 GM/DL (6.4-8.2)
[2020-08-18 03:35] LABS: AMPHETAMINES LEVEL URINE POSITIVE (NEGATIVE); BARBITURATES URINE NEGATIVE (NEGATIVE); BENZODIAZEPINES URINE NEGATIVE (NEGATIVE); CANNABINOIDS URINE POSITIVE (NEGATIVE); COCAINE METABOLITE URINE NEGATIVE (NEGATIVE); METHADONE URINE NEGATIVE (NEGATIVE); OPIATES URINE POSITIVE (NEGATIVE); PHENCYCLIDINE URINE NEGATIVE (NEGATIVE)
[2020-08-18] MEDS ORDERED: LORazepam 1 MG TAB PO ONE (12:15)
--- NOTE | 2020-08-18 16:10 | ECGEPIP ---
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
[2020-08-19 08:25] LABS: BASO % 0.4 % (0.0-1.0); EOS # 0.1 10^3/uL (0.0-0.5); EOS % 1.8 % (0.0-3.0); HEMATOCRIT 43.1 % (42.0-52.0); HEMOGLOBIN 14.8 g/dl (13.5-17.5); LYMPH % 44.9 % (24.0-44.0); MEAN CORPUSCULAR HGB CONC 34.3 g/dl (32.0-36.5); MEAN CORPUSCULAR VOLUME 93.1 fl (80.0-96.0); MONO # 0.4 10^3/uL (0.0-0.8); MONO % 9.7 % (0.0-5.0); NEUTROPHILS # 1.9 10^3/uL (1.5-8.5); PLATELET COUNT, AUTOMATED 251 10^3/uL (150-450); RED BLOOD COUNT 4.63 10^6/uL (4.30-6.10); WHITE BLOOD COUNT 4.5 10^3/uL (4.0-10.0)
[2020-08-19] MEDS ORDERED: LORazepam 1 MG TAB PO STA (17:22)
[2020-08-20] MEDS ORDERED: hydrOXYzine 25 MG TAB PO ONE (13:30)
[2020-08-20] MEDS ORDERED: ACETAMINOPHEN TAB 650MG DOSE (2X325MG) PO PRN (16:45)
[2020-08-20] MEDS ORDERED: MAALOX 30 ML SUSP *UDC PO PRN (16:45)
[2020-08-20] MEDS ORDERED: LORazepam 2 MG TAB PO PRN (16:45)
[2020-08-20] MEDS ORDERED: MOM 30ML SUSPENSION UDC PO PRN (16:45)
[2020-08-20] MEDS ORDERED: THIAMINE 100 MG TAB PO ONE (17:00)
[2020-08-20] MEDS: MULTIVITAMINS/MINERALS THERAP 1 TAB PO SCH (17:27)
[2020-08-20] MEDS: FOLIC ACID 1 MG TAB PO SCH (17:27)
[2020-08-20 17:50] VITALS: BP_SYST 107; BP_DIAS 72; BP_DIAS 98
[2020-08-20] MEDS: traZODone 50 MG TAB PO PRN (21:06)
[2020-08-21 06:38] VITALS: BP 148/75
[2020-08-21] MEDS: MULTIVITAMINS/MINERALS THERAP 1 TAB PO SCH (09:31)
[2020-08-21] MEDS: FOLIC ACID 1 MG TAB PO SCH (09:31)
[2020-08-21] MEDS: THIAMINE 100 MG TAB PO SCH ×2 (09:31→20:02)
--- NOTE | 2020-08-21 12:54 | HPEPDOC ---
[facility] Medical History & Physical Date of Admission Aug 21, 2020 Date of Service: Aug 21, 2020 Attending Physician: THONY LEON MD History and Physical CHIEF COMPLAINT: acute intoxication HISTORY OF PRESENT ILLNESS: 22-year-old male with a history of depression, polysubstance abuse, suicidality was brought to [facility] ED with SI after recent confrontation with girlfriend, suspected drug use. Hospitalist service consulted for medical intake. Patient has no acute complaints at this time. Reports a history of hepatitis C, diagnosed one year ago. Reports long-standing history of IV drug abuse. Would like to follow-up with infectious disease. Denies chest pain, seizures of breath, fevers, chills, nausea, vomiting, diarrhea or cough. Denies suicidal ideation at this time. Labs in ED reviewed, UDS positive for opiates, amphetamines, cannabinoids. CK 268. Cr 1.54. PAST MEDICAL HISTORY: Depression polysubstance abuse Hep C PAST SURGICAL HISTORY: patient denies prior surgical history SOCIAL HISTORY: denies tobacco use occasional etoh use 3-4 drinks per week active and longstanding hx of IV drug abuse FAMILY HISTORY: patient denies pertinent family hx ALLERGIES: Please see below. REVIEW OF SYSTEMS: CONSTITUTIONAL: patient denies fevers, chills HEENT: patient denies blurred vision, loss of vision, headache,. CARDIOVASCULAR: patient denies chest pain, palpitations. RESPIRATORY: patient denies shortness of breath, cough, hemoptysis. GASTROINTESTINAL: patient denies abdominal pain, n/v/d, blood in stool. GENITOURINARY: patient denies dysuria, discharge. SKIN: patient denies rashes. MUSCULOSKELETAL: patient denies joint pain, neck pain. NEUROLOGICAL: patient denies focal weakness, numbness, seizures. PSYCHIATRIC: patient denies SI/HI. ENDOCRINE: patient denies polyuria, heat intolerance, cold intolerance. HEMATOLOGIC/LYMPHATIC: patient denies easy bruising. HOME MEDICATIONS: Please see below. PHYSICAL EXAMINATION: VITAL SIGNS: please see below General: NAD, comfortable HEENT: PERRLA, EOMI, sclerae clear Neck: supple, normal ROM, no JVD Respiratory: lungs CTAB, no wheeze, no rales, no crackles CVS: RRR, normal S1, S2, no murmurs Abdo: soft, no masses, no hepatosplenomegaly, BS+, no rebound tenderness Extremities: no edema, pulses 2+ MSK: no joint deformities, normal ROM Neuro: no focal neuro deficits, moving all 4 extremities, CN2-12 intact. Strength 5/5 in all 4 extremities. No nystagmus. Psych: calm, cooperative, AAO x 3 LABORATORY DATA: See below. MICROBIOLOGY: Please see below. ASSESSMENT: 31 yo M with hx of depression, polysubstance abuse admitted to [facility] for suicidality. Hospitalist service consulted for medical management . PLAN: Depression/suicidality: management per psychiatry LETTY: repeat BMP, encourage PO hydration Hep C: IVDU hx. check HCV viral load. Outpatient referral to Dr. Salcedo ID clinic. Screen for HIV, Hep B. Polysubstance use: recommend referral to rehab program on [place]. Thank you for involving us in the care of this patient. Please re-consult as needed. Vital Signs Vital Signs Date Time Temp Pulse Resp B/P (MAP) Pulse Ox O2 Delivery O2 Flow Rate FiO2 08/21/20 06:38 98.1 72 16 148/75 (99) 08/20/20 17:50 Room Air 08/20/20 16:55 99 Laboratory Data Microbiology Microbiology 08/19/20 Urine Culture - Final, Complete Home Medications Unable to Obtain Active Prescriptions or Reported Meds Allergies Coded Allergies: No Known Drug Allergies (Verified Allergy, Unknown, 12/05/19) A-FIB/CHADSVASC A-FIB History Current/History of A-Fib/PAF?: No Current PO Anticoag Therapy: No THONY LEON MD Aug 21, 2020 12:54
--- NOTE | 2020-08-21 13:28 | MHHPEPDOC ---
[facility] History & Physical History and Physical DATE OF ADMISSION: Aug 20, 2020 at 16:33 Subjective HPI: Jose was admitted to the inpatient mental health unit after reportedly overdosing on heroin. There had been concerns due to multiple previous submissions that he had presented with a suicide attempt and has a notable history of drug use. He reports that he wasnt feeling depressed or anxious, but had been misusing heroin, which he had overdosed, and no intention of injuring himself. He was at triage for admission out of a bunch of caution. He notes no symptoms of depression, bipolar, or psychosis at this time. He had been uncooperative downstairs, which further made it difficult for him to be triage for discharge at the time. He states, otherwise, that he needs his Abilify shot and has no other complaints. MEDICAL HISTORY: Past medical history significant for multiple previous submissions on Abilify 400 mg. Currently, goes to [facility] and last admitted in March 2020 for substance related problems. He has had multiple overdoses, but unclear if suicidal. FAMILY HISTORY: For family history, no new change from last admission of substance use as mentioned above, including significant methamphetamine, marijuana, prescription medications, and other problems. SOCIAL HISTORY - LIVING SITUATION: Currently, hes not connected with outpatient treatment, single, and homeless at this time along with different friends and is unemployed. Objective Appearance: Fair hygiene. Affect: Euthymic. Appropriate to context. Full range. Speech: Spontaneous and Fluid. Normal volume. Normal rate. Cognition: Alert, Attentive, and Oriented to person, place, time. Grossly intact. Associations intact. Thought Form: Linear and goal directed. Judgement: Poor to fair. Insight: Poor to fair. Assessment F28 Other psychotic disorder not due to a substance or known physiological condition F19.10 Other psychoactive substance abuse, uncomplicated Plan Continue with inpatient admission and observe for several days before triaging for discharge. Out of abundance of caution, monitor him. Give him 400 mg Abilify injectable as he is due for his next injection and requests it. Treatment priorities are (1) altered thoughts and (2) substance use, estimating as hes admitted since 1-3 days. Vital Signs Vital Signs Date Time Temp Pulse Resp B/P (MAP) Pulse Ox O2 Delivery O2 Flow Rate FiO2 08/21/20 06:38 98.1 72 16 148/75 (99) 08/20/20 17:50 Room Air 08/20/20 16:55 99 Medications Unable to Obtain Active Prescriptions or Reported Meds Allergies Coded Allergies: No Known Drug Allergies (Verified Allergy, Unknown, 12/05/19) LINDA KU DO Aug 21, 2020 13:28
[2020-08-21 15:09] LABS: BLOOD UREA NITROGEN 9 MG/DL (7-18); CALCIUM LEVEL 9.3 MG/DL (8.5-10.1); CARBON DIOXIDE LEVEL 29 MEQ/L (21-32); CHLORIDE LEVEL 104 MEQ/L (98-107); CREATININE FOR GFR 0.94 MG/DL (0.70-1.30); GLOMERULAR FILTRATION RATE > 60.0 (>60); GLUCOSE, FASTING 108 MG/DL (70-100); HEPATITIS B SURFACE ANTIBODY POSITIVE (POSITIVE); HEPATITIS B SURFACE ANTIGEN NEGATIVE (NEGATIVE); HIV 1&2 SCREEN CENTAUR NEGATIVE (NEGATIVE); POTASSIUM SERUM 4.8 MEQ/L (3.5-5.1); SODIUM LEVEL 137 MEQ/L (136-145)
[2020-08-21] MEDS ORDERED: ARIPiprazole MONOHYDRATE 400 MG INJ (ABILIFY) IM ONE (16:00)
[2020-08-21 16:17] VITALS: BP 104/58
[2020-08-21] MEDS: traZODone 50 MG TAB PO PRN (20:02)
[2020-08-22 06:39] VITALS: BP 144/80
[2020-08-22] MEDS: FOLIC ACID 1 MG TAB PO SCH (09:52)
[2020-08-22] MEDS: THIAMINE 100 MG TAB PO SCH ×2 (09:52→20:02)
[2020-08-22] MEDS: MULTIVITAMINS/MINERALS THERAP 1 TAB PO SCH (09:52)
--- NOTE | 2020-08-22 10:21 | MHIPNPDOC ---
[facility] Progress Note Progress Note DATE OF SERVICE: 08/22/20 Subjective HPI: Jose presents today reporting that he has been feeling mildly sleepy, but he got his Abilify and feels good. Patient has been isolated but otherwise, is friendly and engaged on the unit without major behavioral problems. He reports that he is feeling good and ready for discharge tomorrow. Objective Appearance: Appears to be stated age. Well nourished. Well groomed. Behavior: Pleasant. Engaged. Cooperative with good eye contact. Affect: Appropriate to context. Full range. Mood: Generally good. Euthymic. Appropriately reactive. Speech: Normal volume. Normal rate. Spontaneous and Fluid. Motor: No gross motor abnormalities. Cognition: Alert, Attentive, and Oriented to person, place, time. Memory: No formal testing. No gross abnormalities of short or custodial memory noted during interview. Thought Form: Linear and goal directed. Thought Content: No evidence of delusions. No evidence of suicidal ideation. No evidence of aggressive or homicidal ideation. No thoughts of self harm. Perception: No perceptual abnormalities noted. Judgement: Intact as evidenced by decision making in the recent past. Insight: Good insight into symptoms and treatment options. Assessment F19.94 Other psychoactive substance use, unspecified with psychoactive substance-induced mood disorder Plan Triage for discharge tomorrow. Had an Abilify injection today. Will try to re-engage. However, he is not interested in rehab at this time. Vital Signs Vital Signs Date Time Temp Pulse Resp B/P (MAP) Pulse Ox O2 Delivery O2 Flow Rate FiO2 08/22/20 06:39 96.5 69 16 144/80 (101) 08/20/20 17:50 Room Air 08/20/20 16:55 99 Laboratory Data 24H Labs Laboratory Tests 2 08/21/20 13:33: Anion Gap 4L, Glomerular Filtration Rate > 60.0, Calcium Level 9.3, Hepatitis B Surface Antigen NEGATIVE, Hepatitis B Surface Antibody POSITIVE, HIV A ntigen/Antibody Combo Qual NEGATIVE CBC/BMP Laboratory Tests 08/21/20 13:33 Current Medications Current Medications Medications (Trade) Dose Ordered Sig/Sreedhar Route PRN Reason Start Time Stop Time Status Last Admin Dose Admin Acetaminophen (Tylenol Tab) 650 mg Q6HP PRN PO HEADACHE or DISCOMFORT 08/20/20 16:45 Al Hydrox/Mg Hydrox/Simethicone (Mylanta) 30 ml Q4HP PRN PO HEARTBURN/INDIGESTION 08/20/20 16:45 Folic Acid (Folic Acid) 1 mg DAILY PO 08/20/20 09:00 08/22/20 09:52 Home Med (Med Rec Complete!) ASDIRECTED XX 08/18/20 05:00 08/18/20 04:50 DC Lorazepam (Ativan) 1 mg STAT STAT PO 08/19/20 17:22 08/19/20 17:23 DC 08/19/20 17:40 Lorazepam (Ativan) 2 mg ASDIRECTED PRN PO SEE PROTOCOL 08/20/20 16:45 08/21/20 13:38 DC Magnesium Hydroxide (Milk Of Magnesia) 30 ml DAILYPRN PRN PO CONSTIPATION 08/20/20 16:45 Multivitamins (Theragram-M) 1 tab DAILY PO 08/20/20 09:00 08/22/20 09:52 Thiamine HCl (Thiamine HCl) 100 mg BID PO 08/21/20 09:00 08/23/20 09:01 08/22/20 09:52 Trazodone HCl (Desyrel) 50 mg QHSP PRN PO INSOMNIA 08/20/20 16:45 08/21/20 20:02 Allergies Coded Allergies: No Known Drug Allergies (Verified Allergy, Unknown, 12/05/19) LINDA KU DO Aug 22, 2020 10:21
[2020-08-22] MEDS ORDERED: traZODone 100 MG TAB PO PRN (13:00)
[2020-08-22 16:27] VITALS: BP 102/57
[2020-08-22 23:11] LABS: HEPATITIS C QUANTITATION 1905680 IU/mL (.)
[2020-08-23 06:41] VITALS: BP 128/71
[2020-08-23] MEDS: MULTIVITAMINS/MINERALS THERAP 1 TAB PO SCH (09:48)
[2020-08-23] MEDS: THIAMINE 100 MG TAB PO SCH (09:48)
[2020-08-23] MEDS: FOLIC ACID 1 MG TAB PO SCH (09:48)
--- NOTE | 2020-08-23 11:14 | MHDSPDOC ---
[facility] Discharge Summary Discharge Summary DATE OF ADMISSION: Aug 20, 2020 at 16:33 DATE OF DISCHARGE:Aug 23, 2020 at 13:50 DISCHARGE DIAGNOSES: F32.9 Major depressive disorder, single episode, unspecified F19.980 Other psychoactive substance use, unspecified with psychoactive substance-induced anxiety disorder CONSULTANTS INVOLVED:[ None (basic hospitalist screening)] REASON FOR ADMISSION & TREATMENT AND PROGRESS ON THE UNIT : Jose presented to the inpatient mental health unit after being brought in due to reported overdose of heroin. Concerns of suicidality and his significant men mark health history. He was admitted, he cleared up quickly without any issue. He did well in the unit, resolved, and was observed for several days in which he did not engage in concerning or unusual behavior and subsequently triage back for discharge without incident. MEDICATIONS: Requested his Abilify 400 mg which was given to him. DISCHARGE ASSESSMENT[improved] Legal status considerations: The patient at the time of discharge did not meet criteria for involuntary admission/extension due to having a [normal] mental status exam, [fair] insight into the situation, They are engaged in the discharge process, as well as being friendly and amenable in behavioral control and havent been engaging in any observed concerning behavior or ideation recently. They decline voluntary extension/admission at this time and must be discharged in good bubba, as Im unable to make a case for holding the patient against their will. They may have historical risk factors of admissions and other interactions with psychiatry ho wever, those are not modifiable from a clinical perspective. The patient will need to be discharged in good bubba. MENTAL STATUS EXAMINATION ON DISCHARGE: [General: Well dressed with good hygiene Speech: Spontaneous and fluid Thought processes: Linear and logical Thought content: Future orientated Abstract reasoning, and computation: Intact Description of associations: Intact Description of abnormal or psychotic thoughts:Denies any suicidal or homicidal ideation. Denies any auditory or visual hallucinations. Does not appear to be responding to internal stimuli. Does not appear to be endorsing any bizarre or paranoid ideation. Judgment: fair Insight: fair Orientation: Alert and orientated 3 Recent and remote memory: Intact Attention span and concentration: Intact Fund of knowledge: Adequate Mood: "okay" Affect: Euthymic with a full range] PLAN/FOLLOWUP ARRANGEMENTS: Follow up appointments made (PCP and MH in 5 days of D/C date) and safety plan completed. Safety Planning aspects completed prior to discharge [RN reviewed crisis hotline information and other aspects to empower patient to access care in interim before next appointment.] The amount of time spent in the coordination of care for this patient was approximately 30 minutes. Vital Signs/I&Os Vital Signs Date Time Temp Pulse Resp B/P (MAP) Pulse Ox O2 Delivery O2 Flow Rate FiO2 08/23/20 07:45 Room Air 08/23/20 06:41 98.5 75 14 128/71 (90) 96 Laboratory Data Microbiology Microbiology 08/19/20 Urine Culture - Final, Complete Medications Unable to Obtain Active Prescriptions or Reported Meds Allergies Coded Allergies: No Known Drug Allergies (Verified Allergy, Unknown, 12/05/19) LINDA KU DO Aug 23, 2020 11:14
== END 2020-08-23 13:50 | disposition home or self-care (01) | DRG 754 ==
LOC: M ED 01:43 → M ED INP 08-20 16:33 → M PSY 08-20 17:05
PROVIDERS: ADMIT Psychiatry & Neurology Addiction Medicine; ATTEND Psychiatry & Neurology Addiction Medicine
DX: F32.9 Major depressive disorder, single episode, unspecified (principal); B18.2 Chronic viral hepatitis C; F19.980 Other psychoactive substance use, unspecified with psychoactive substance-induced anxiety disorder

== ENCOUNTER 2020-11-19 16:52 | Emergency (ER) | payer MEDICAID, OTHER ==
[~2020-11-19] VITALS: Ht 172.7 cm; Wt 61.8 kg
[~2020-11-19 16:52] MED LIST changes: +IBUP1TAB5 PO; -IBUP40TA PO
--- NOTE | 2020-11-19 18:21 | REP ---
INDICATION: romeo newell. COMPARISON: Right hand series from 16 November 2015.. TECHNIQUE: Four views. FINDINGS: Four views of the right wrist demonstrate normal bones, joints, and soft tissues. Joint spaces are preserved. No fracture or subluxation is seen. IMPRESSION: Negative radiographs of the right wrist. No fracture seen. <Electronically signed by Deep Omalley > 11/19/20 [id number]
--- NOTE | 2020-11-19 18:21 | REP ---
INDICATION: romeo newell. COMPARISON: None. TECHNIQUE: Four views of the right elbow. FINDINGS: Four views of the right elbow demonstrate normal bones, joints, and soft tissues. No fracture or subluxation is seen. No opaque foreign body noted. IMPRESSION: Negative right elbow series. <Electronically signed by Deep Omalley > 11/19/20 [id number]
--- NOTE | 2020-11-19 18:22 | REP ---
INDICATION: romeo newell. COMPARISON: None. TECHNIQUE: Three views of the right shoulder FINDINGS: Three views of the right shoulder demonstrate normal alignment of the glenohumeral and acromioclavicular articulations. Periarticular soft tissues are unremarkable. No fracture or subluxation is seen. The visualized right rib cage is intact. IMPRESSION: Negative radiographs of the right shoulder. No fracture or subluxation seen. <Electronically signed by Deep Omalley > 11/19/20 [id number]
[2020-11-19 18:45] VITALS: BP 128/77
== END 2020-11-19 18:47 | disposition home or self-care (01) ==
LOC: M ED 16:52
DX: S60.211A Contusion of right wrist, initial encounter (principal); W19.XXXA Unspecified fall, initial encounter; Y92.89 Other specified places as the place of occurrence of the external cause; F17.210 Nicotine dependence, cigarettes, uncomplicated

== ENCOUNTER → 2020-11-27 | Outpatient (REF) | payer OTHER ==
[2020-11-27 17:53] LABS: BASO % 0.7 % (0.0-1.0); EOS # 0.2 10^3/uL (0.0-0.5); HEMATOCRIT 41.1 % (42.0-52.0); HEMOGLOBIN 14.2 g/dl (13.5-17.5); LYMPH # 2.2 10^3/uL (1.5-5.0); LYMPH % 54.1 % (24.0-44.0); MEAN CORPUSCULAR HEMOGLOBIN 31.5 pg (27.0-33.0); MEAN CORPUSCULAR HGB CONC 34.5 g/dl (32.0-36.5); MEAN CORPUSCULAR VOLUME 91.1 fl (80.0-96.0); MONO # 0.4 10^3/uL (0.0-0.8); MONO % 10.2 % (0.0-5.0); NEUTROPHILS # 1.2 10^3/uL (1.5-8.5); NEUTROPHILS % 29.8 % (36.0-66.0); PLATELET COUNT, AUTOMATED 222 10^3/uL (150-450); RED BLOOD COUNT 4.51 10^6/uL (4.30-6.10)
[2020-11-27 18:04] LABS: ALT/SGPT 96 U/L (12-78); BILIRUBIN,TOTAL 0.3 MG/DL (0.2-1.0); BLOOD UREA NITROGEN 11 MG/DL (7-18); CALCIUM LEVEL 9.5 MG/DL (8.5-10.1); CARBON DIOXIDE LEVEL 32 MEQ/L (21-32); CHLORIDE LEVEL 103 MEQ/L (98-107); CHOLESTEROL LEVEL 115 MG/DL (<200); CHOLESTEROL RISK RATIO 2.674 (<5); CREATININE FOR GFR 0.82 MG/DL (0.70-1.30); GLOMERULAR FILTRATION RATE > 60.0 (>60); GLUCOSE, FASTING 84 MG/DL (70-100); HDL CHOLESTEROL 43 MG/DL (>40); LDL CHOLESTEROL 32 MG/DL (<100); NON-HDL-C 72 MG/DL; POTASSIUM SERUM 3.8 MEQ/L (3.5-5.1); SODIUM LEVEL 140 MEQ/L (136-145); TOTAL PROTEIN 6.8 GM/DL (6.4-8.2); TRIGLYCERIDES LEVEL 202 MG/DL (<150)
[2020-12-01 02:07] LABS: AMPHETAMINE, URINE GC/MS 984 ng/mL (Cutoff=500); BENZOYLECGONINE (GC/MS) 313 ng/mL (Cutoff=150); CANNABINOID, URINE Positive (Cutoff=20); CARBOXY THC (GC/MS) >300 ng/mL (Cutoff=10); COCAINE + METABOLITE Positive (Cutoff=300); CODEINE, URINE Negative (Cutoff=100); FENTANYL URINE Positive (.); FENTANYL URINE CONFIRM 6143 pg/mL (Cutoff=500); FENTANYL/NORFENTANYL Positive (Cutoff=2000); HYDROCODONE, URINE Negative (Cutoff=100); HYDROMORPHONE, URINE Negative (Cutoff=100); METHAMPHETAMINE, URINE Positive (.); METHAMPHETAMINE, URINE GC/MS 567 ng/mL (Cutoff=500); MORPHINE CONFIRM, URINE 1225 ng/mL (Cutoff=100); MORPHINE, URINE Positive (.); NORFENTANYL URINE Positive (.); NORFENTANYL URINE CONFIRM >90000 pg/mL (Cutoff=500); OPIATES, URINE Positive ng/mL (Cutoff=300)
== END ==
LOC: M SFHCPLAZ 14:53
PROVIDERS: ATTEND Nurse Practitioner Family
DX: B19.20 Unspecified viral hepatitis C without hepatic coma (principal)

== ENCOUNTER 2020-12-22 10:07 | Emergency (ER) | payer OTHER ==
[2020-12-22] MEDS ORDERED: NS 1,000 ML IV SCH (10:13)
[2020-12-22 13:09] LABS: ACETAMINOPHEN LEVEL < 2.0 UG/ML (10.0-30.0); ALT/SGPT 144 U/L (12-78); BILIRUBIN,DIRECT 0.1 MG/DL (0.0-0.2); BILIRUBIN,TOTAL 0.3 MG/DL (0.2-1.0); BLOOD UREA NITROGEN 4 MG/DL (7-18); CALCIUM LEVEL 8.1 MG/DL (8.5-10.1); CARBON DIOXIDE LEVEL 29 MEQ/L (21-32); CHLORIDE LEVEL 104 MEQ/L (98-107); CPK CREATINE PHOSPHOKINASE 93 U/L (39-308); CREATININE FOR GFR 0.88 MG/DL (0.70-1.30); ETHYL ALCOHOL (ETHANOL) 0.041 % (0.000-0.010); GLOMERULAR FILTRATION RATE > 60.0 (>60); GLUCOSE, FASTING 114 MG/DL (70-100); POTASSIUM SERUM 3.2 MEQ/L (3.5-5.1); SALICYLATE LEVEL < 1.7 MG/DL (5.0-30.0); SODIUM LEVEL 142 MEQ/L (136-145)
--- NOTE | 2020-12-22 13:29 | REP ---
INDICATION: Drug Overdose. COMPARISON: 05/28/2020. TECHNIQUE: CT BRAIN PERFORMED IN THE AXIAL PLANE. CORONAL RECONSTRUCTION IMAGES ARE PERFORMED. FINDINGS: THE VENTRICLES ARE NORMAL IN SIZE AND POSITION. THERE IS NO MIDLINE SHIFT OR MASS EFFECT. AGUSTIN-WHITE DIFFERENTIATION IS WELL MAINTAINED. THERE IS NO ACUTE INTRACRANIAL HEMORRHAGE OR EXTRA-AXIAL FLUID COLLECTION. BONE WINDOW EXAMINATION IS UNREMARKABLE. VISUALIZED MASTOID AIR CELLS AND PARANASAL SINUSES ARE CLEAR. IMPRESSION: NEGATIVE NONCONTRAST CT BRAIN. <Electronically signed by Scout Agustin > 12/22/20 [id number]
--- NOTE | 2020-12-22 13:48 | ED PDOC ---
Post-Departure Follow-Up please see downtime documentation More Houston MD Dec 22, 2020 13:48
[2020-12-22 13:57] LABS: BASO % 0.4 % (0.0-1.0); EOS % 0.6 % (0.0-3.0); HEMATOCRIT 38.7 % (42.0-52.0); HEMOGLOBIN 13.5 g/dl (13.5-17.5); LYMPH # 1.8 10^3/uL (1.5-5.0); LYMPH % 37.8 % (24.0-44.0); MEAN CORPUSCULAR HEMOGLOBIN 30.8 pg (27.0-33.0); MEAN CORPUSCULAR HGB CONC 34.9 g/dl (32.0-36.5); MEAN CORPUSCULAR VOLUME 88.4 fl (80.0-96.0); MONO # 0.4 10^3/uL (0.0-0.8); MONO % 8.1 % (2.0-8.0); NEUTROPHILS # 2.5 10^3/uL (1.5-8.5); NEUTROPHILS % 52.5 % (36.0-66.0); PLATELET COUNT, AUTOMATED 226 10^3/uL (150-450); RED BLOOD COUNT 4.38 10^6/uL (4.30-6.10); WHITE BLOOD COUNT 4.8 10^3/uL (4.0-10.0)
--- OUTSIDE RECORDS SUMMARY | 2020-12-22 14:28 | CCD | Continuity of Care Document ---
Author Author [facility] Organization [facility] Address [address] [place] [address] Phone Support Name Relationship Address Phone Doctor Provided, Family No PRS Unknown Unava ilable Ernie Kee PRS [address] [place] [address] Long Escalante PRS [address] [place] [address] Didier Singh PRS [address] [place] [address] Angel Martin PRS [address] [place] [address] of [place], Medicine Occupation PRS [address] [place] [address] Unavailable Rene Owens PRS [address] [place] [address] Evangelina Minor PRS [address] [facility] [address] [place] [address] Dayday Wolf PRS [address] [place] [address] Virginia Chand PRS [address] [place] [address] Mirza Darling PRS [address] [place] [address] Allergies, Adverse Reactions, Alerts No known allergies. Medications Medication Status Dose Units Route Directions Qty Days Start Date End Date Instructions Buspirone Active 7.5 MG PO 2 Times Per Day January 17, 2020 9:27am Trazodone Discontinued 1 50 MG PO At Bedtime January 17, 2020 9:29am November 01, 2020 10:20pm Pantoprazole Active 40 MG PO daily January 17, 2020 9:30am Gabapentin Discontinued 100 MG PO daily January 17, 2020 10:46am October 31, 2020 5:59am Esomeprazole Magnesium (Nexium) 40 MG ca psule,delayed release(DR/EC) Discontinued 1 TAB PO Once Per Day October 09, 2014 2:25pm March 27, 2018 5:36pm Amoxicillin Discontinued 500 MG PO 2 Times Per Day July 30, 2016 6:32pm July 08, 2017 3:12pm Ibuprofen Discontinued 8 00 MG PO Every 8 hours July 30, 2016 7:29pm March 27, 2018 5:36pm Lorazepam Discontinued 1 MG PO Every 12 Hours September 22, 2017 4:51pm December 29, 2017 12:50am Gabapentin Active 100 MG PO daily October 31, 2020 5:59am Trazodone Active 150 MG PO At Bedtime November 01, 2020 10:20pm Sulfamethoxazole-Trimethoprim (Bactrim Ds) 800-160 mg tablet Active 1 TAB PO 2 Times Per Day November 02, 2020 9:39am Cephalexin (Keflex) 500 mg capsule Active 500 MG PO 2 Times Per Day November 02, 2020 9:40am Doxycycline Hyclate Discontinued 100 MG PO 2 Times Per Day November 03, 2019 1 0:03am November 15, 2019 6:55pm take 1 serenity r before breakfast and dinner meals. Azithromycin (Zithromax) 500 mg tablet Discontinued 1000 MG PO .COMPLEX 2 November 03, 2019 3:08pm November 15, 2019 6:55pm 1,000 mg P O ; Problems Active Problems Medical Problem Onset Date Status Seminal vesiculitis Ac tive Chest wall pain Active Acute abdominal pain A ctive Immunosuppression Acti ve Cervical radiculopathy due to trauma Active Acromioclavicular joint separation Active Contusion, arm, upper Active Drug abuse and dependence Active Suicide gesture Active Pleuritic chest pain A ctive Abnormal LFTs (liver function tests) Active Anxiety Active Pain of left shoulder with external rotation Active Rhabdomyolysis Active Chest pain made worse by breathing Active Suicide attempt Active Abnormal WBC count Act monalisa Panic attack Active Hepatitis C Active Procedures Procedure Date Performed Status Xray Chest One View October 30 8:14pm completed CT Head without contrast October 8:33pm completed CT Upper extremity w/ contrast Janua 2020 8:34pm completed US Echo complete November 02, 2020 11:08am active Blood Culture October 30, 2020 active Urine Culture October 31, 2020 completed Respiratory Panel (PCR) October 30, 2020 completed Xray Chest One View March 01, 2020 5:38pm completed US Abd single organ/quadrant December 252019 7:27am completed Xray Chest One View November 21 8:07am completed Relevant Diagnostic Tests and/or Laboratory Data Laboratory Results Test Date/Time Result Interpretation Reference Range Result Comment Performing Site White Blood Count November 02, 2020 6:50am 4.0 10e3/uL 4.45-10.71 [facility], [address] [place] [address] 13951 White Blood Count March 01, 2020 5:25pm 7.7 10e3/uL 4.45-10.71 [facility], [address] [place] [address] White Blood Count January 20, 2020 10:24pm 4.3 10e3/uL 4.45-10.71 [facility], [address] [place] [address] White Blood Count January 19, 2020 7:33am 3.6 10e3/uL 4.45-10.71 [facility], [address] [place] [address] White Blood Count January 17, 2020 10:20am 3.9 10e3/uL 4.45-10.71 [facility], [address] [place] [address] White Blood Count November 21, 2019 8:00a m 5.4 10e3/uL 4.45-10.71 [facility], [address] [place] [address] 52188 White Blood Count November 15, 2019 3:14p m 4.9 10e3/uL 4.45-10.71 [facility], [address] [place] [address] 25467 Red Blood Count November 02, 2020 6:50am 3.77 10e6/uL 4.3-6.1 [facility], [address] [place] [address] 27419 Red Blood Count March 01, 2020 5:25pm 4.55 10e6/uL 4.3-6.1 [facility], [address] [place] [address] 73664 Red Blood Count January 20, 2020 10:24pm 4.07 10e6/uL 4.3-6.1 [facility], [address] [place] [address] Red Blood Count January 19, 2020 7:33am 4.43 10e6/uL 4.3-6.1 [facility], [address] [place] [address] Red Blood Count January 17, 2020 10:20am 4.50 10e6/uL 4.3-6.1 [facility], [address] [place] [address] Red Blood Count November 21, 2019 8:00am 4.71 10e6/uL 4.3-6.1 [facility], [address] [place] [address] Red Blood Count November 15, 2019 3:14pm 4.41 10e6/uL 4.3-6.1 [facility], [address] [place] [address] 97110 Hemoglobin November 02, 2020 6:50am 12.0 g/dL 1318 [facility], [address] [place] [address] Hemoglobin March 01, 2020 5:25pm 15.1 g/dL 13-18 [facility], [address] [place], [place] [id number] Hemoglobin January 20, 2020 10:24pm 13.5 g/dL 13-18 [facility], [address] [place] [address] Hemoglobin January 19, 2020 7:33am 14.4 g/dL 13-18 [facility], [address] [place] [address] Hemoglobin January 17, 2020 10:20am 14.8 g/dL 13-18 [facility], [address] [place] [address] Hemoglobin November 21, 2019 8:00am 15.4 g/dL 13-18 [facility], [address] [place] [address] Hemoglobin November 15, 2019 3:14pm 14.2 g/dL 13-18 [facility], [address] [place] [address] Hematocrit November 02, 2020 6:50am 34.9 % 42-52 [facility], [address] [place] [address] 98668 Hematocrit March 01, 2020 5:25pm 41.0 % 42-52 [facility], [address] [place] [address] Hematocrit January 20, 2020 10:24pm 37.1 % 42-52 [facility], [address] [place] [address] 36261 Hematocrit January 19, 2020 7:33am 40.0 % 42-52 [facility], [address] [place] [address] 43342 Hematocrit January 17, 2020 10:20am 41.1 % 42-52 [facility], [address] [place] [address] 71793 Hematocrit November 21, 2019 8:00am 41.8 % 42-52 [facility], [address] [place] [address] 34911 Hematocrit November 15, 2019 3:14pm 40.1 % 42-52 [facility], [address] [place] [address] 07195 Mean Corpuscular Volume November 02, 2020 6:50am 92.6 fl 80-96 [facility], [address] [place] [address] 29976 Mean Corpuscular Volume March 01 5:25pm 90.1 fl 80-96 [facility], [address] [place] [address] 90553 Mean Corpuscular Volume January 20, 2020 10:24pm 91.2 fl 80-96 [facility], [address] [place] [address] 75762 Mean Corpuscular Volume January 19, 2020 7:33am 90.3 fl 80-96 [facility], [address] [place] [address] 64489 Mean Corpuscular Volume January 17, 2020 10:20am 91.3 fl 80-96 [facility], [address] [place] [address] 49484 Mean Corpuscular Volume October 8:00am 88.7 fl 80-96 [facility], [address] [place] [address] 11718 Mean Corpuscular Volume October 3:14pm 90.9 fl 80-96 [facility], [address] [place] [address] 66996 Mean Corpuscular Hemoglobin November 02, 2020 6:50am 31.8 pg 27-31 [facility], [address] [place] [address] 92448 Mean Corpuscular Hemoglobin March 01, 2020 5:25pm 33.2 pg 27-31 [facility], [address] [place] [address] 65492 Mean Corpuscular Hemoglobin January 192019 10:24pm 33.2 pg 27-31 [facility], [address] [place] [address] 69905 Mean Corpuscular Hemoglobin January 182019 7:33am 32.5 pg 27-31 [facility], [address] [place] [address] 61272 Mean Corpuscular Hemoglobin January 162019 10:20am 32.9 pg 27-31 [facility], [address] [place] [address] 39948 Mean Corpuscular Hemoglobin November 21, 2019 8:00am 32.7 pg 27-31 [facility], [address] [place] [address] 01667 Mean Corpuscular Hemoglobin November 15, 2019 3:14pm 32.2 pg 27-31 [facility], [address] [place] [address] 24016 Mean Corpuscular Hemoglobin Concent November 02, 2020 6:50am 34.4 g/dl 33-37 [facility], [address] [place] [address] 19992 Mean Corpuscular Hemoglobin Concent March 01, 2020 5:25pm 36.8 g/dl 3337 [facility], [address] [place] [address] 66959 Mean Corpuscular Hemoglobin Concent January 20, 2020 10:24pm 36.4 g/dl 33-37 [facility], [address] [place] [address] 09482 Mean Corpuscular Hemoglobin Concent January 19, 2020 7:33am 36.0 g/dl 33-37 [facility], [address] [place] [address] 21789 Mean Corpuscular Hemoglobin Concent January 17, 2020 10:20am 36.0 g/dl 33-37 [facility], [address] [place] [address] 50609 Mean Corpuscular Hemoglobin Concent November 21, 2019 8:00am 36.8 g/dl 3337 [facility], [address] [place] [address] 96158 Mean Corpuscular Hemoglobin Concent November 15, 2019 3:14pm 35.4 g/dl [facility]37 [facility], [address] [place] [address] 78644 Red Cell Distribution Width November 02, 2020 6:50am 13 % 11-15 [facility], [address] [place] [address] 00024 Red Cell Distribution Width March 01, 2020 5:25pm 12 % 11-15 [facility], [address] [place] [address] 33368 Red Cell Distribution Width January 192019 10:24pm 12 % 11-15 [facility], [address] [place] [address] Red Cell Distribution Width January 182019 7:33am 12 % 11-15 [facility], [address] [place] [address] Red Cell Distribution Width January 162019 10:20am 12 % 11-15 [facility], [address] [place] [address] Red Cell Distribution Width November 21, 2019 8:00am 12 % 11-15 [facility], [address] [place] [address] Red Cell Distribution Width November 15, 2019 3:14pm 12 % 11-15 [facility], [address] [place] [address] Platelet Count November 02, 2020 6:50am 166 10e3/ul 130-472 [facility], [address] [place] [address] Platelet Count March 01, 2020 5:25pm 265 10e3/ul 130-472 [facility], [address] [place] [address] Platelet Count January 20, 2020 10:24pm 185 10e3/ul 130-472 [facility], [address] [place] [address] Platelet Count January 19, 2020 7:33am 199 10e3/ul 130-472 [facility], [address] [place] [address] Platelet Count January 17, 2020 10:20am 214 10e3/ul 130-472 [facility], [address] [place] [address] Platelet Count November 21, 2019 8:00am 260 10e3/ul 130-472 [facility], [address] [place] [address] Platelet Count November 15, 2019 3:14pm 252 10e3/ul 130-472 [facility], [address] [place] [address] Mean Platelet Volume November 02 6:50am 10.5 fl 9.1-13.1 [facility], [address] [place] [address] Mean Platelet Volume March 01, 2020 5:25pm 9.9 fl 9.1-13.1 [facility], [address] [place] [address] Mean Platelet Volume January 19 0 10:24pm 10.0 fl 9.1-13.1 [facility], [address] [place] [address] 27364 Mean Platelet Volume January 18 0 7:33am 10.5 fl 9.1-13.1 [facility], [address] [place] [address] 62347 Mean Platelet Volume January 16 0 10:20am 10.5 fl 9.1-13.1 [facility], [address] [place] [address] Mean Platelet Volume November 21 8:00am 9.6 fl 9.1-13.1 [facility], [address] [place] [address] Mean Platelet Volume November 15 3:14pm 10.1 fl 9.1-13.1 [facility], [address] [place] [address] 81764 Neutrophils (%) (Auto) November 02, 2020 6:50am 41.1 % [address] [facility], [address] [place] [address] 33356 Neutrophils (%) (Auto) March 01, 2020 5:25p m 80.0 % [address] [facility], [address] [place] [address] 69152 Neutrophils (%) (Auto) January 19 10:24pm 39.6 % [address] [facility], [address] [place] [address] 24218 Neutrophils (%) (Auto) January 18 7:33am 36.7 % [address] [facility], [address] [place] [address] 05268 Neutrophils (%) (Auto) January 16 10:20am 43.8 % [address] [facility], [address] [place] [address] 69586 Neutrophils (%) (Auto) November 21, 2019 8:00am 44.2 % [address] [place] [address] [facility], [address] [place] [address] 29886 Neutrophils (%) (Auto) November 15, 2019 3:14pm 40.4 % [address] [facility], [address] [place] [address] 33261 Absolute Neutrophil November 02 6:50am 1.6 # 1.7-7.6 [facility], [address] [place] [address] 84994 Absolute Neutrophil March 01, 2020 5:25pm 6.2 # 1.7-7.6 [facility], [address] [place] [address] 57626 Absolute Neutrophil January 20, 2020 10:24pm 1.7 # 1.7-7.6 [facility], [address] [place] [address] 53999 Absolute Neutrophil January 19, 2020 7:33a m 1.3 # 1.7-7.6 [facility], [address] [place] [address] 59420 Absolute Neutrophil January 17, 2020 10:20am 1.7 # 1.7-7.6 [facility], [address] [place] [address] 96789 Absolute Neutrophil November 21 8:00am 2.4 # 1.7-7.6 [facility], [address] [place] [address] 03696 Absolute Neutrophil November 15 3:14pm 2.0 # 1.7-7.6 [facility], [address] [place] [address] 17671 Lymphocytes (%) (Auto) November 02, 2020 6:50am 44.8 % 14-46 [facility], [address] [place] [address] 26866 Lymphocytes (%) (Auto) March 01, 2020 5:25p m 11.8 % 14-46 [facility], [address] [place] [address] 58123 Lymphocytes (%) (Auto) January 19 10:24pm 49.1 % 14-46 [facility], [address] [place] [address] 55025 Lymphocytes (%) (Auto) January 18 7:33am 48.7 % 14-46 [facility], [address] [place] [address] 53973 Lymphocytes (%) (Auto) January 16 020 10:20am 40.5 % 14-46 [facility], [address] [place] [address] 94053 Lymphocytes (%) (Auto) November 21, 2019 8:00am 39.8 % 14-46 [facility], [address] [place] [address] 78546 Lymphocytes (%) (Auto) November 15, 2019 3:14pm 46.6 % 14-46 [facility], [address] [place] [address] 03680 Lymphocytes # (Auto) November 02 6:50am 1.8 # 0.6-4.6 [facility], [address] [place] [address] 17529 Lymphocytes # (Auto) March 01, 2020 5:25pm 0.9 # 0.6-4.6 [facility], [address] [place] [address] 07211 Lymphocytes # (Auto) January 19 0 10:24pm 2.1 # 0.6-4.6 [facility], [address] [place] [address] 74073 Lymphocytes # (Auto) January 18 0 7:33am 1.7 # 0.6-4.6 [facility], [address] [place] [address] 46222 Lymphocytes # (Auto) January 16 0 10:20am 1.6 # 0.6-4.6 [facility], [address] [place] [address] 37760 Lymphocytes # (Auto) November 21 8:00am 2.2 # 0.6-4.6 [facility], [address] [place] [address] 62010 Lymphocytes # (Auto) November 15 3:14pm 2.3 # 0.6-4.6 [facility], [address] [place] [address] 96702 Monocytes (%) (Auto) November 02 6:50am 9.8 % 4-12 [facility], [address] [place] [address] 61133 Monocytes (%) (Auto) March 01, 2020 5:25pm 7.3 % 4-12 [facility], [address] [place] [address] 96458 Monocytes (%) (Auto) January 19 0 10:24pm 9.9 % 4-12 [facility], [address] [place] [address] 56821 Monocytes (%) (Auto) January 18 0 7:33am 11.8 % 4-12 [facility], [address] [place] [address] 97188 Monocytes (%) (Auto) January 16 0 10:20am 13.4 % 4-12 [facility], [address] [place] [address] 48635 Monocytes (%) (Auto) November 21 8:00am 14.5 % 4-12 [facility], [address] [place] [address] 19281 Monocytes (%) (Auto) November 15 3:14pm 10.8 % 4-12 [facility], [address] [place] [address] 87559 Monocytes # November 02, 2020 6:50am 0.4 # 0.2-1.2 [facility], [address] [place] [address] 68777 Monocytes # March 01, 2020 5:25pm 0.6 # 0.2-1.2 [facility], [address] [place] [address] 34735 Monocytes # January 20, 2020 10:24pm 0.4 # 0.2-1.2 [facility], [address] [place] [address] 99564 Monocytes # January 19, 2020 7:33am 0.4 # 0.2-1.2 [facility], [address] [place] [address] 50893 Monocytes # January 17, 2020 10:20am 0.5 # 0.2-1.2 [facility], [address] [place] [address] 42140 Monocytes # November 21, 2019 8:00am 0.8 # 0.2-1.2 [facility], [address] [place] [address] 63829 Monocytes # November 15, 2019 3:14pm 0.5 # 0.2-1.2 [facility], [address] [place] [address] 17677 Eosinophils (%) (Auto) November 02, 2020 6:50am 3.8 % 0-7 [facility], [address] [place] [address] 22186 Eosinophils (%) (Auto) March 01, 2020 5:25p m 0.5 % 0-7 [facility], [address] [place] [address] 12447 Eosinophils (%) (Auto) January 19 10:24pm 0.7 % 0-7 [facility], [address] [place] [address] 89259 Eosinophils (%) (Auto) January 18 7:33am 2.2 % 0-7 [facility], [address] [place] [address] 18967 Eosinophils (%) (Auto) January 16 10:20am 1.5 % 0-7 [facility], [address] [place] [address] 85647 Eosinophils (%) (Auto) November 21, 2019 8:00am 0.9 % 0-7 [facility], [address] [place] [address] 09852 Eosinophils (%) (Auto) November 15, 2019 3:14pm 1.4 % 0-7 [facility], [address] [place] [address] 14756 Absolute Eosinophils (CBC) November 022020 6:50am 0.2 # 0.0-0.5 [facility], [address] [place] [address] 88939 Absolute Eosinophils (CBC) March 01, 2020 5:25pm 0.0 # 0.0-0.5 [facility], [address] [place] [address] Absolute Eosinophils (CBC) December 10:24pm 0.0 # 0.0-0.5 [facility], [address] [place] [address] 11772 Absolute Eosinophils (CBC) December 7:33am 0.1 # 0.0-0.5 [facility], [address] [place] [address] 06368 Absolute Eosinophils (CBC) December 10:20am 0.1 # 0.0-0.5 [facility], [address] [place] [address] Absolute Eosinophils (CBC) October 272019 8:00am 0.1 # 0.0-0.5 [facility], [address] [place] [address] 16201 Absolute Eosinophils (CBC) October 272019 3:14pm 0.1 # 0.0-0.5 [facility], [address] [place] [address] 63061 Basophils (%) (Auto) November 02 6:50am 0.5 % 0.4-1.3 [facility], [address] [place] [address] 54197 Basophils (%) (Auto) March 01, 2020 5:25pm 0.1 % 0.4-1.3 [facility], [address] [place] [address] 76663 Basophils (%) (Auto) January 19 0 10:24pm 0.5 % 0.4-1.3 [facility], [address] [place] [address] 25735 Basophils (%) (Auto) January 18 0 7:33am 0.6 % 0.4-1.3 [facility], [address] [place] [address] 76492 Basophils (%) (Auto) January 16 10:20am 0.8 % 0.4-1.3 [facility], [address] [place] [address] 36729 Basophils (%) (Auto) November 21 8:00am 0.4 % 0.4-1.3 [facility], [address] [place] [address] 16683 Basophils (%) (Auto) November 15 3:14pm 0.6 % 0.4-1.3 [facility], [address] [place] [address] 94128 Absolute Basophils (CBC) October 6:50am 0.0 # 0.0-0.2 [facility], [address] [place] [address] 42815 Absolute Basophils (CBC) March 01 5:25pm 0.0 # 0.0-0.2 [facility], [address] [place] [address] 46817 Absolute Basophils (CBC) January 20, 2020 10:24pm 0.0 # 0.0-0.2 [facility], [address] [place] [address] 31094 Absolute Basophils (CBC) January 19, 2020 7:33am 0.0 # 0.0-0.2 [facility], [address] [place] [address] 53813 Absolute Basophils (CBC) January 17, 2020 10:20am 0.0 # 0.0-0.2 [facility], [address] [place] [address] 48439 Absolute Basophils (CBC) October 8:00am 0.0 # 0.0-0.2 [facility], [address] [place] [address] 48635 Absolute Basophils (CBC) October 3:14pm 0.0 # 0.0-0.2 [facility], [address] [place] [address] 21823 Immature Granulocyte % (Auto) 2020 6:50am 0.0 % 0-2 [facility], [address] [place] [address] 46690 Immature Granulocyte % (Auto) February 5:25pm 0.3 % 0-2 [facility], [address] [place] [address] 94249 Immature Granulocyte % (Auto) January 20, 2020 10:24pm 0.2 % 0-2 [facility], [address] [place] [address] [id number] Immature Granulocyte % (Auto) January 19, 2020 7:33am 0.0 % 0-2 [facility], [address] [place] [address] [id number] Immature Granulocyte % (Auto) January 17, 2020 10:20am 0.0 % 0-2 [facility], [address] [place] [address] [id number] Immature Granulocyte % (Auto) 2019 8:00am 0.2 % 0-2 [facility], [address] [place] [address] [id number] Immature Granulocyte % (Auto) 2019 3:14pm 0.2 % 0-2 [facility], [address] [place] [address] [id number] Absolute Immature Granulocyte (auto November 02, 2020 6:50am 0.0 # 0-0.1 [facility], [address] [place] [address] [id number] Absolute Immature Granulocyte (auto March 01, 2020 5:25pm 0.0 # 0-0.1 [facility], [address] [place] [address] [id number] Absolute Immature Granulocyte (auto January 20, 2020 10:24pm 0.0 # 0-0.1 [facility], [address] [place] [address] [phone] Absolute Immature Granulocyte (auto January 19, 2020 7:33am 0.0 # 0-0.1 [facility], [address] [place] [address] [id number] Absolute Immature Granulocyte (auto January 17, 2020 10:20am 0.0 # 0-0.1 [facility], [address] [place] [address] [id number] Absolute Immature Granulocyte (auto November 21, 2019 8:00am 0.0 # 0-0.1 [facility], [address] [place] [address] [phone] Absolute Immature Granulocyte (auto November 15, 2019 3:14pm 0.0 # 0-0.1 [facility], [address] [place] [address] 79020 Add Manual Differential November 02, 2020 6:50am No [facility], [address] [place] [address] 38485 Add Manual Differential March 01 5:25pm No [facility], [address] [place] [address] 57087 Add Manual Differential January 20, 2020 10:24pm No [facility], [address] [place] [address] 26607 Add Manual Differential January 19, 2020 7:33am No [facility], [address] [place] [address] 51161 Add Manual Differential January 17, 2020 10:20am No [facility], [address] [place] [address] 13530 Add Manual Differential October 8:00am No [facility], [address] [place] [address] 95701 Add Manual Differential October 3:14pm No [facility], [address] [place] [address] 42555 Differential Total Cells Counted Oct 5:14am 100 [facility], [address] [place] [address] 76013 Neutrophils (Manual) November 01 5:14am 25 % 41-77 [facility], [address] [place] [address] 99102 Lymphocytes (Manual) November 01 5:14am 61 % 14-46 [facility], [address] [place] [address] 38716 Monocytes (Manual) November 01, 2020 5:14a m 11 % 4-12 [facility], [address] [place] [address] 97949 Eosinophils (Manual) November 01 5:14am 2 % 0-7 [facility], [address] [place] [address] 98353 Atypical Lymphocytes November 01 5:14am 1 0-5 [facility], [address] [place] [address] 99021 Platelet Estimate November 01, 2020 5:14am Appears normal NORMAL [facility], [address] [place] [address] 26872 RBC Morphology 2 November 01, 2020 5:14am Appears normal NORMAL [facility], [address] [place] [address] 80017 Sedimentation Rate, Lara Gonsalez 2020 8:35pm 9 mm/hr 0-15 [facility], [address] [place] [address] 37289 Urine Color October 31, 2020 1:18am Yellow [facility], [address] [place] [address] 64643 Urine Color November 15, 2019 5:59pm Yellow [facility], [address] [place] [address] 72645 Urine Color November 21, 2019 7:49am Yellow [facility], [address] [place] [address] 75150 Urine Appearance October 31, 2020 1:18am Clear CLEAR [facility], [address] [place] [address] 58566 Urine Appearance November 21, 2019 7:49am Clear CLEAR [facility], [address] [place] [address] 40902 Urine Appearance November 15, 2019 5:59pm Clear CLEAR [facility], [address] [place] [address] 68620 Urine pH October 31, 2020 1:18am 6.0 [facility], [address] [place] [address] 60234 Urine pH November 21, 2019 7:49am 5.5 [facility], [address] [place] [address] 04931 Urine pH November 15, 2019 5:59pm 6.5 [facility], [address] [place] [address] 03140 Urine Specific Cummings October 31, 2020 1:18am 1.036 [facility], [address] [place] [address] 64422 Urine Specific Cummings November 21, 2019 7:49am 1.005 [facility], [address] [place] [address] 76723 Urine Specific Cummings November 15, 2019 5:59pm 1.017 [facility], [address] [place] [address] 89969 Urine Leukocyte Esterase October 1:18am Negative NEGATIVE [facility], [address] [place] [address] 75278 Urine Leukocyte Esterase October 5:59pm Negative NEGATIVE [facility], [address] [place] [address] 94416 Urine Leukocyte Esterase October 7:49am Negative NEGATIVE [facility], [address] [place] [address] 78678 Urine Nitrite October 31, 2020 1:18am Negative NEGATIVE [facility], [address] [place] [address] 97465 Urine Nitrite November 15, 2019 5:59pm Negative NEGATIVE [facility], [address] [place] [address] 79132 Urine Nitrate November 21, 2019 7:49am Negative NEGATIVE [facility], [address] [place] [address] 72377 Urine Protein October 31, 2020 1:18am Negative NEGATIVE [facility], [address] [place] [address] 62214 Urine Protein November 21, 2019 7:49am Negative NEGATIVE [facility], [address] [place] [address] 46450 Urine Protein November 15, 2019 5:59pm Negative NEGATIVE [facility], [address] [place] [address] 05620 Urine Glucose October 31, 2020 1:18am Negative NEGATIVE [facility], [address] [place] [address] 20665 Urine Glucose November 21, 2019 7:49am Negative NEGATIVE [facility], [address] [place] [address] 26064 Urine Glucose November 15, 2019 5:59pm Negative NEGATIVE [facility], [address] [place] [address] 34505 Urine Ketones October 31, 2020 1:18am Negative NEGATIVE [facility], [address] [place] [address] 53177 Urine Ketones November 21, 2019 7:49am Negative NEGATIVE [facility], [address] [place] [address] 79214 Urine Ketones November 15, 2019 5:59pm Negative NEGATIVE [facility], [address] [place] [address] 93391 Urine Urobilinogen October 31, 2020 1:18a m 1 eu/dl [facility], [address] [place] [address] Urine Urobilinogen November 21 0 7:49am 0.2 eu/dl [facility], [address] [place] [address] Urine Urobilinogen November 15 0 5:59pm 1 eu/dl [facility], [address] [place] [address] 86230 Urine Bilirubin October 31, 2020 1:18am Negative NEGATIVE [facility], [address] [place] [address] 07936 Urine Bilirubin November 21, 2019 7:49am Negative NEGATIVE [facility], [address] [place] [address] 60035 Urine Bilirubin November 15, 2019 5:59pm Negative NEGATIVE [facility], [address] [place] [address] 48069 Urine Blood October 31, 2020 1:18am Negative NEGATIVE [facility], [address] [place] [address] 60317 Urine Blood November 15, 2019 5:59pm Negative NEGATIVE [facility], [address] [place] [address] 15633 Urine Blood November 21, 2019 7:49am Negative NEGATIVE [facility], [address] [place] [address] 62471 Microscopic Urinalysis Comment Janua 2020 1:18am No [facility], [address] [place] [address] Microscopic Urinalysis Comment 2019 5:59pm No [facility], [address] [place] [address] 51581 Add Urine Microanalysis October 7:49am No [facility], [address] [place] [address] 91226 Blood Urea Nitrogen November 02 6:50am 6 mg/dL 07-18 [facility], [address] [place] [address] 69843 Blood Urea Nitrogen March 01, 2020 5:25pm 6 mg/dL 07-18 [facility], [address] [place] [address] 32313 Blood Urea Nitrogen January 20, 2020 10:24pm 13 mg/dL 07-18 [facility], [address] [place] [address] 01308 Blood Urea Nitrogen January 17, 2020 10:20am 10 mg/dL 07-18 [facility], [address] [place] [address] 19533 Blood Urea Nitrogen November 21 8:00am 9 mg/dL 07-18 [facility], [address] [place] [address] 68147 Blood Urea Nitrogen November 15 3:14pm 5 mg/dL 07-18 [facility], [address] [place] [address] 83138 Sodium Level November 02, 2020 6:50am 145 mmol/L 132-146 [facility], [address] [place] [address] 51821 Sodium Level March 01, 2020 5:25pm 139 mmol/L 132-146 [facility], [address] [place] [address] 57509 Sodium Level January 20, 2020 10:24pm 141 mmol/L 132-146 [facility], [address] [place] [address] 30297 Sodium Level January 17, 2020 10:20am 140 mmol/L 132-146 [facility], [address] [place] [address] 61282 Sodium Level November 21, 2019 8:00am 137 mmol/L 132-146 [facility], [address] [place] [address] 36692 Sodium Level November 15, 2019 3:14pm 141 mmol/L 132-146 [facility], [address] [place] [address] 45321 Potassium Level November 02, 2020 6:50am 3.7 mmol/L 3.5-5.5 [facility], [address] [place] [address] 84442 Potassium Level March 01, 2020 5:25pm 3.1 mmol/L 3.5-5.5 [facility], [address] [place] [address] 83249 Potassium Level January 20, 2020 10:24pm 2.8 mmol/L 3.5-5.5 Called to Rene Owens MD @ 4999 by Jace Garnica. Results read back. [facility], [address] [place] [address] 40951 Potassium Level January 17, 2020 10:20am 3.9 mmol/L 3.5-5.5 [facility], [address] [place] [address] 50891 Potassium Level November 21, 2019 8:00am 2.8 mmol/L 3.5-5.5 Called to SOLA BUTLER @ 0838 by Mary Roque. Results read back. Repeated by: Mary Roque 11/21/19 0839.Result Confirmation: 2.8 mmol/L [facility], [address] [place] [address] 02563 Potassium Level November 15, 2019 3:14pm 3.6 mmol/L 3.5-5.5 [facility], [address] [place] [address] 21296 Chloride Level November 02, 2020 6:50am 114 mmol/l 99-109 [facility], [address] [place] [address] 79344 Chloride Level March 01, 2020 5:25pm 103 mmol/l 99-109 [facility], [address] [place] [address] 14048 Chloride Level January 20, 2020 10:24pm 104 mmol/l 99-109 [facility], [address] [place] [address] 91981 Chloride Level January 17, 2020 10:20am 106 mmol/l 99-109 [facility], [address] [place] [address] 61774 Chloride Level November 21, 2019 8:00am 99 mmol/l 99-109 [facility], [address] [place] [address] 19774 Chloride Level November 15, 2019 3:14pm 107 mmol/l 99-109 [facility], [address] [place] [address] 57251 Carbon Dioxide Level November 02 6:50am 25 mmol/l 20-31 [facility], [address] [place] [address] 51346 Carbon Dioxide Level March 01, 2020 5:25pm 28 mmol/l 20-31 [facility], [address] [place] [address] 02842 Carbon Dioxide Level January 19 0 10:24pm 28 mmol/l - [facility], [address] [place] [address] 65816 Carbon Dioxide Level January 16 0 10:20am 31 mmol/l -31 [facility], [address] [place] [address] 46728 Carbon Dioxide Level November 21, 020 8:00am 29 mmol/l -31 [facility], [address] [place] [address] 41017 Carbon Dioxide Level November 15 020 3:14pm 29 mmol/l - [facility], [address] [place] [address] 83529 Anion Gap November 02, 2020 6:50am 10 mmol/l 8-16 [facility], [address] [place] [address] 97901 Anion Gap March 01, 2020 5:25pm 11 mmol/l 8-16 [facility], [address] [place] [address] 96841 Anion Gap January 20, 2020 10:24pm 12 mmol/l 8-16 [facility], [address] [place] [address] 14288 Anion Gap January 17, 2020 10:20am 7 mmol/l 8-16 [facility], [address] [place] [address] 08514 Anion Gap November 21, 2019 8:00am 12 mmol/l 8-16 [facility], [address] [place] [address] 32239 Anion Gap November 15, 2019 3:14pm 9 mmol/l 8-16 [facility], [address] [place] [address] 72507 Glucose Level November 02, 2020 6:50am 103 mg/dL 74-106 [facility], [address] [place] [address] 32718 Glucose Level March 01, 2020 5:25pm 109 mg/dL 74-106 [facility], [address] [place] [address] 88161 Glucose Level January 20, 2020 10:24pm 91 mg/dL 74-106 [facility], [address] [place] [address] 87324 Glucose Level January 17, 2020 10:20am 89 mg/dL 74-106 [facility], [address] [place] [address] 63407 Glucose Level November 21, 2019 8:00am 118 mg/dL 74-106 [facility], [address] [place] [address] 48468 Glucose Level November 15, 2019 3:14pm 91 mg/dL 74-106 [facility], [address] [place] [address] 67997 Creatinine November 02, 2020 6:50am 0.6 mg/dL 0.5-1.1 [facility], [address] [place] [address] 17393 Creatinine March 01, 2020 5:25pm 0.9 mg/dL 0.5-1.1 [facility], [address] [place] [address] Creatinine January 20, 2020 10:24pm 0.8 mg/dL 0.5-1.1 [facility], [address] [place] [address] Creatinine January 17, 2020 10:20am 0.8 mg/dL 0.5-1.1 [facility], [address] [place] [address] 93462 Creatinine November 21, 2019 8:00am 0.8 mg/dL 0.5-1.1 [facility], [address] [place] [address] 23742 Creatinine November 15, 2019 3:14pm 0.7 mg/dL 0.5-1.1 [facility], [address] [place] [address] 10909 Glomerular Filtration Rate Calc Luis Alberto monica 2020 6:50am Greater than 60 ml/min ABOVE 60 [facility], [address] [place] [address] 36394 Glomerular Filtration Rate Calc March 01, 2020 5:25pm Greater than 60 ml/min ABOVE 60 [facility], [address] [place] [address] 66900 Glomerular Filtration Rate Calc Ray h 2019 10:24pm Greater than 60 ml/min ABOVE 60 [facility], [address] [place] [address] 27191 Glomerular Filtration Rate Calc Ray h 2019 10:20am Greater than 60 ml/min ABOVE 60 [facility], [address] [place] [address] 34294 Glomerular Filtration Rate Calc Luis Alberto monica 2019 8:00am Greater than 60 ml/min ABOVE 60 [facility], [address] [place] [address] 79784 Glomerular Filtration Rate Calc Luis Alberto monica 2019 3:14pm Greater than 60 ml/min ABOVE 60 [facility], [address] [place] [address] 35942 Alanine Aminotransferase (ALT/SGPT) November 02, 2020 6:50am 78 U/L 1049 [facility], [address] [place] [address] 21431 Alanine Aminotransferase (ALT/SGPT) March 01, 2020 5:25pm 112 U/L 10-49 [facility], [address] [place] [address] 63796 Alanine Aminotransferase (ALT/SGPT) January 20, 2020 10:24pm 330 U/L 1049 [facility], [address] [place] [address] 94622 Alanine Aminotransferase (ALT/SGPT) January 17, 2020 10:20am 337 U/L 49 [facility], [address] [place] [address] 79830 Alanine Aminotransferase (ALT/SGPT) November 21, 2019 8:00am 385 U/L 49 [facility], [address] [place] [address] 70138 Alanine Aminotransferase (ALT/SGPT) November 15, 2019 3:14pm 308 U/L 1049 [facility], [address] [place] [address] 31799 Aspartate Amino Transf (AST/SGOT) [facility] 2020 6:50am 33 U/L 0-33 [facility], [address] [place] [address] 30518 Aspartate Amino Transf (AST/SGOT) [place] 2019 5:25pm 42 U/L 0-33 [facility], [address] [place] [address] 37661 Aspartate Amino Transf (AST/SGOT) [facility] 2019 10:24pm 112 U/L 0-33 [facility], [address] [place] [address] 07277 Aspartate Amino Transf (AST/SGOT) [facility] 2019 10:20am 139 U/L 0-33 [facility], [address] [place] [address] 12603 Aspartate Amino Transf (AST/SGOT) [facility] 2019 8:00am 127 U/L 0-33 [facility], [address] [place] [address] 23560 Aspartate Amino Transf (AST/SGOT) [facility] 2019 3:14pm 89 U/L 0-33 [facility], [address] [place] [address] 90557 Alkaline Phosphatase November 02 6:50am 70 U/L 45-129 [facility], [address] [place] [address] 85184 Alkaline Phosphatase March 01, 2020 5:25pm 78 U/L 45-129 [facility], [address] [place] [address] 07869 Alkaline Phosphatase January 19 0 10:24pm 95 U/L 45-129 [facility], [address] [place] [address] Alkaline Phosphatase January 16 0 10:20am 87 U/L 45-129 [facility], [address] [place] [address] 40004 Alkaline Phosphatase November 21 020 8:00am 106 U/L 45-129 [facility], [address] [place] [address] 55508 Alkaline Phosphatase November 15 3:14pm 105 U/L 45-129 [facility], [address] [place] [address] 74080 Calcium Level November 02, 2020 6:50am 8.3 mg/dL 8.5-10.1 [facility], [address] [place] [address] 68720 Calcium Level March 01, 2020 5:25pm 8.9 mg/dL 8.5-10.1 Delta: 7.8 on 02/11/20-0634Repeated by: Chaparro Dueñas 03/01/201917.Result Confirmation: 9.0 # mg/dL [facility], [address] [place] [address] 84856 Calcium Level January 20, 2020 10:24pm 8.7 mg/dL 8.5-10.1 [facility], [address] [place] [address] 67726 Calcium Level January 17, 2020 10:20am 8.9 mg/dL 8.5-10.1 [facility], [address] [place] [address] 06715 Calcium Level November 21, 2019 8:00am 9.1 mg/dL 8.5-10.1 [facility], [address] [place] [address] 61417 Calcium Level November 15, 2019 3:14pm 8.9 mg/dL 8.5-10.1 [facility], [address] [place] [address] 23121 Total Bilirubin November 02, 2020 6:50am 0.3 mg/dL 0.3-1.2 [facility], [address] [place] [address] 40808 Total Bilirubin March 01, 2020 5:25pm 0.6 mg/dL 0.3-1.2 [facility], [address] [place] [address] 27257 Total Bilirubin January 20, 2020 10:24pm 0.8 mg/dL 0.3-1.2 [facility], [address] [place] [address] 75744 Total Bilirubin January 17, 2020 10:20am 0.7 mg/dL 0.3-1.2 [facility], [address] [place], [place] [address] Total Bilirubin November 21, 2019 8:00am 1.1 mg/dL 0.3-1.2 [facility], [address] [place] [address] Total Bilirubin November 15, 2019 3:14pm 0.6 mg/dL 0.3-1.2 [facility], [address] [place] [address] 68104 Albumin November 02, 2020 6:50am 3.0 g/dL 3.2-4.8 [facility], [address] [place] [address] Albumin March 01, 2020 5:25pm 4.1 g/dL 3.2-4.8 Delta: 3.0 on 02/11/20- 0634Repeated by: Chaparro Dueñas 03/01/201917.Result Confirmation: 4.1 # g/dL [facility], [address] [place] [address] 38450 Albumin January 20, 2020 10:24pm 4.4 g/dL 3.2-4.8 [facility], [address] [place] [address] 07520 Albumin January 17, 2020 10:20am 4.2 g/dL 3.2-4.8 [facility], [address] [place] [address] 61789 Albumin November 21, 2019 8:00am 4.7 g/dL 3.2-4.8 [facility], [address] [place] [address] 98955 Albumin November 15, 2019 3:14pm 4.1 g/dL 3.2-4.8 [facility], [address] [place] [address] 97056 Serum Total Protein November 02 6:50am 5.8 g/dL 5.7-8.2 [facility], [address] [place] [address] Serum Total Protein March 01, 2020 5:25pm 7.4 g/dL 5.7-8.2 Delta: 5.4 on 02/11/20-0634Repeated by: Chaparro Dueñas 03/01/201917.Result Confirmation: 7.4 # g/dL [facility], [address] [place] [address] Serum Total Protein January 20, 2020 10:24pm 7.2 g/dL 5.7-8.2 [facility], [address] [place] [address] Serum Total Protein January 17, 2020 10:20am 7.5 g/dL 5.7-8.2 [facility], [address] [place] [address] Serum Total Protein November 21 8:00am 8.0 g/dL 5.7-8.2 [facility], [address] [place] [address] Serum Total Protein November 15 3:14pm 7.5 g/dL 5.7-8.2 [facility], [address] [place] [address] Lactic Acid Level October 30, 2020 8:35pm 0.5 mmol/L 0.5-2.2 [facility], [address] [place] [address] Magnesium Level October 30, 2020 8:35pm 2.3 mg/dL 1.3-2.7 [facility], [address] [place] [address] 60433 Urine Marijuana (THC) Screen October 31, 2020 1:18am Presumptive positive ng/mL Cutoff 50 This test is for screening purposes o nly. Confirmation of positive results will be sent to our Reference lab only at the Physician's request. [facility], [address] [place] [address] 59744 Urine Marijuana (THC) Screen November 21, 2019 7:49am Presumptive positive ng/mL Cutoff 50 This test is for screening purposes o nly. Confirmation of positive results will be sent to our Reference lab only at the Physician's request. [facility], [address] [place] [address] 40848 Urine Marijuana (THC) Screen November 15, 2019 5:59pm Presumptive positive ng/mL Cutoff 50 This test is for screening purposes o nly. Confirmation of positive results will be sent to our Reference lab only at the Physician's request. [facility], [address] [place] [address] 78078 Urine Phencyclidine Screen October 312020 1:18am Negative ng/mL Cutoff 25 [facility], [address] [place] [address] 87553 Urine Phencyclidine Screen October 272019 7:49am Negative ng/mL Cutoff 25 [facility], [address] [place] [address] 96751 Urine Phencyclidine Screen October 272019 5:59pm Negative ng/mL Cutoff 25 [facility], [address] [place] [address] 54211 Urine Cocaine Screen October 31 1:18am Negative ng/mL Cutoff 150 [facility], [address] [place] [address] 03388 Urine Cocaine Screen November 21 7:49am Negative ng/mL Cutoff 150 [facility], [address] [place] [address] 73421 Urine Cocaine Screen November 15 5:59pm Negative ng/mL Cutoff 150 [facility], [address] [place] [address] 61484 Urine Methamphetamines Screen 2020 1:18am Negative ng/mL Cutoff 500 [facility], [address] [place] [address] [id number] Urine Methamphetamines Screen 2019 7:49am Presumptive positive ng/mL Cutoff 500 This test is for screening purposes o nly. Confirmation of positive results will be sent to our Reference lab only at the Physician's request. [facility], [address] [place] [address] [id number] Urine Methamphetamines Screen 2019 5:59pm Negative ng/mL Cutoff 500 [facility], [address] [place] [address] [id number] Urine Opiates Screen October 31 1:18am Presumptive positive ng/mL Cutoff 100 This test is for screening purposes o nly. Confirmation of positive results will be sent to our Reference lab only at the Physician's request. [facility], [address] [place] [address] [id number] Urine Opiates Screen November 21, 020 7:49am Negative ng/mL Cutoff 100 [facility], [address] [place] [address] [id number] Urine Opiates Screen November 15, 020 5:59pm Negative ng/mL Cutoff 100 [facility], [address] [place] [address] [phone] Urine Amphetamines Screen October 1:18am Negative ng/mL Cutoff 500 [facility], [address] [place] [address] [id number] Urine Amphetamines Screen November [id number] 7:49am Presumptive positive ng/mL Cutoff 500 This test is for screening purposes o nly. Confirmation of positive results will be sent to our Reference lab only at the Physician's request. [facility], [address] [place] [address] [id number] Urine Amphetamines Screen November 152019 5:59pm Presumptive positive ng/mL Cutoff 500 This test is for screening purposes o nly. Confirmation of positive results will be sent to our Reference lab only at the Physician's request. [facility], [address] [place] [address] 91185 Urine Benzodiazepines Screen October 31, 2020 1:18am Negative ng/mL Cutoff 150 [facility], [address] [place] [address] 33133 Urine Benzodiazepines Screen November 21, 2019 7:49am Negative ng/mL Cutoff 150 [facility], [address] [place], [place] [phone] Urine Benzodiazepines Screen November 15, 2019 5:59pm Presumptive positive ng/mL Cutoff 150 This test is for screening purposes o nly. Confirmation of positive results will be sent to our Reference lab only at the Physician's request. [facility], [address] [place] [address] 40573 Ur Tricyclic Antidepressants Screen October 31, 2020 1:18am Negative ng/mL Cutoff 300 [facility], [address] [place] [address] 47443 Ur Tricyclic Antidepressants Screen November 21, 2019 7:49am Negative ng/mL Cutoff 300 [facility], [address] [place] [address] 40762 Ur Tricyclic Antidepressants Screen November 15, 2019 5:59pm Negative ng/mL Cutoff 300 [facility], [address] [place] [address] 56176 Urine Methadone Screen October 31, 2020 1:18am Negative ng/mL Cutoff 200 [facility], [address] [place] [address] 41137 Urine Methadone Screen November 21, 2019 7:49am Negative ng/mL Cutoff 200 [facility], [address] [place] [address] 80366 Urine Methadone Screen November 15, 2019 5:59pm Negative ng/mL Cutoff 200 [facility], [address] [place] [address] 83552 Urine Barbiturates October 31, 2020 1:18a m Negative ng/mL Cutoff 200 [facility], [address] [place] [address] 29498 Urine Barbiturates November 21 0 7:49am Negative ng/mL Cutoff 200 [facility], [address] [place] [address] 78192 Urine Barbiturates November 15 0 5:59pm Negative ng/mL Cutoff 200 [facility], [address] [place] [address] 07735 Urine Oxycodone Screen October 31, 2020 1:18am Negative ng/mL Cutoff 100 [facility], [address] [place] [address] 86293 Urine Oxycodone Screen November 21, 2019 7:49am Negative ng/mL Cutoff 100 [facility], [address] [place] [address] 47816 Urine Oxycodone Screen November 15, 2019 5:59pm Negative ng/mL Cutoff 100 [facility], [address] [place] [address] 79550 Urine Propoxyphene Screen October 1:18am Negative ng/mL Cutoff 300 [facility], [address] [place] [address] 42640 Urine Propoxyphene Screen November 212019 7:49am Negative ng/mL Cutoff 300 [facility], [address] [place] [address] 64380 Urine Propoxyphene Screen November 152019 5:59pm Negative ng/mL Cutoff 300 [facility], [address] [place] [address] 12947 Urine Buprenorphine Screen October 312020 1:18am Negative ng/mL Cutoff 10 [facility], [address] [place] [address] 34480 Urine Buprenorphine Screen October 272019 7:49am Negative ng/mL Cutoff 10 [facility], [address] [place] [address] 81531 Urine Buprenorphine Screen October 272019 5:59pm Negative ng/mL Cutoff 10 [facility], [address] [place] [address] 09758 Creatine Kinase October 30, 2020 8:35pm 201 U/L 33-211 [facility], [address] [place] [address] 66566 Creatine Kinase March 01, 2020 5:25pm 220 U/L 33-211 [facility], [address] [place] [address] 70526 Acetaminophen Level March 01, 2020 5:25pm Less than 2 ug/mL 10-30 [facility], [address] [place] [address] 12545 Acetaminophen Level January 20, 2020 10:24pm Less than 2.0 ug/mL 10 -30 [facility], [address] [place] [address] 83321 Acetaminophen Level November 21 8:00am Less than 2 ug/mL 10-3 0 [facility], [address] [place] [address] 91659 Acetaminophen Level November 15 3:14pm Less than 2 ug/mL 10-3 0 [facility], [address] [place] [address] 90946 Salicylates Level March 01, 2020 5:25pm 0.1 mg/dl 0.0-2.8 MILD TOXICITY: Greater than 30.0 mg/dlSEVERE TOXICITY: Greater than 50.0 mg/dl [facility], [address] [place] [address] 46627 Salicylates Level January 20, 2020 10:24pm 0.2 mg/dl 0.0-2.8 MILD TOXICITY: Greater than 30.0 mg/dlSEVERE TOXICITY: Greater than 50.0 mg/dl [facility], [address] [place] [address] 73785 Salicylates Level November 21, 2019 8:00a m 0.3 mg/dl 0.0-2.8 MILD TOXICITY: Greater than 30.0 mg/dlSEVERE TOXICITY: Greater than 50.0 mg/dl [facility], [address] [place] [address] 84557 Salicylates Level November 15, 2019 3:14p m 1.1 mg/dl 0.0-2.8 MILD TOXICITY: Greater than 30.0 mg/dlSEVERE TOXICITY: Greater than 50.0 mg/dl [facility], [address] [place] [address] 91129 Ethyl Alcohol Level October 30 8:35pm Less than 3 mg/dL 50- 79 mg/dL Mild Intoxication>80 mg/dL Intoxication>300 mg/dL Severe Impairment>400 mg/dL CriticalFor Medical Purposes Only [facility], [address] [place] [address] 90173 Ethyl Alcohol Level March 01, 2020 5:25pm Less than 3 mg/dL 50- 79 md/dL Mild Intoxication>80 mg/dL Intoxication>300 mg/dL Severe Impairment>400 mg/dL CriticalFor Medical Purposes Only [facility], [address] [place] [address] 31421 Ethyl Alcohol Level January 20, 2020 10:24pm 166 mg/dL 50-79 md/dL Mild Intoxication>80 mg/dL Intoxication>300 mg/dL Severe Impairment>400 mg/dL CriticalFor Medical Purposes Only [facility], [address] [place] [address] 86820 Ethyl Alcohol Level November 21 8:00am 3 mg/dL 50-79 md/dL Mild Intoxication>80 mg/dL Intoxication>300 mg/dL Severe Impairment>400 mg/dL CriticalFor Medical Purposes Only [facility], [address] [place] [address] 46216 Vancomycin Level Trough November 01, 2020 5:14am 9.5 ug/mL 10.0-20.0 As of 11/01/20 0659 Last scheduled patient dose of VANCOMYCIN HCLprior to specimen collection:10/31/20 2200 (7.2 hours). [facility], [address] [place] [address] 50366 Vancomycin Level Peak November 01 1:10am 19.2 ug/mL 20-40 [facility], [address] [place] [address] 46917 C-Reactive Protein October 30, 2020 8:35p m Less than 2.9 mg/L 0.0-5.0 [facility], [address] [place] [address] 95303 Creatine Kinase MB October 30, 2020 8:35p m Less than 1.0 ng/mL 0.0-5.0 [facility], [address] [place] [address] 21399 Creatine Kinase MB March 01, 2020 5:25pm Less than 1.0 ng/mL 0.0-5.0 [facility], [address] [place] [address] 81780 Creatine Kinase MB % October 30 8:35pm Not Reported [facility], [address] [place] [address] 11190 Creatine Kinase MB % March 01, 2020 5:25pm Not Reported [facility], [address] [place] [address] 49069 Troponin I October 30, 2020 8:35pm Less than 0.015 ng/mL 0.00-0.09 Less than 0.09 NG/ML Negative0.10 - 0.77 NG/ML High Risk0.78 NG/ML or Greater Positive The WHO defined the cutoff (definition for diagnosis of RI)for this method as 0.78 ng/ml. [facility], [address] [place] [address] 62674 Troponin I March 01, 2020 5:25pm Less than 0.015 ng/mL 0.00-0.09 Less than 0.09 NG/ML Negative0.10 - 0.77 NG/ML High Risk0.78 NG/ML or Greater Positive The WHO defined the cutoff (definition for diagnosis of RI)for this method as 0.78 ng/ml. [facility], [address] [place] [address] 68743 Thyroid Stimulating Hormone (TSH) Ca 2019 5:25pm 2.13 uIU/mL 0.35-5.50 [facility], [address] [place] [address] 49505 Thyroid Stimulating Hormone (TSH) [facility] 2019 8:00am 2.57 uIU/mL 0.35-5.50 [facility], [address] [place] [address] 63783 Hepatitis C Antibody January 16 10:20am >11.0 s/co ratio Negative: < 0.8 Indeterminate: 0.8 - 0.9 Positive: > 0.9 The CDC recommends that a positive HCV antibody result be followed up with a HCV Nucleic Acid Amplification test (123230). [facility] , [address] [place] [phone] Hepatitis A Antibody Total December 10:20am Positive Negative Performed at: [facility] [place], [place] [id number] Director: Flaca Mancia MD, Phone: [phone] [facility] , [address] [facility] [phone] Hepatitis B Surface Antibody December 252019 10:20am Reactive Non Reactive: Inconsistent with immunity, less than 10 mIU/mL Reactive: Consistent with immunity, greater than 9.9 mIU/mL [facility] , [address] [facility] [phone] Microbiology Results Procedure Source Result Collection Date/Time Result Date/Time Result Comment Performing Site Urine Culture Urine,voided No growth. October 31, 2020 1:18am October 9:10am [facility], [address] [place] [address] 60020 Respiratory Panel (PCR) Nasopharyngeal Human Rhinovirus/enterovirus October 30, 2020 8:40pm October 30, 2020 9:41pm [facility], [address] [place] [address] 66437 Diagnostic Imaging Reports Report Dictated Date/Time Dictated By Status Radiology Report November 21, 2019 8:18am Jovanny Valles MD completed [address] [address] [phone] NAME SEX PT STATUS ACCOUNT NUMBER [facility] SN[facility] ER [id number] ORDERING PHYSICIAN LOCATION MEDICAL RECORD NO. Didier Singh MD ER [id number] ATTENDING PHYSICIAN DATE OF DATE OF EXAM/TIME Long Escalante DO 1990 11/21/19 / 806 TYPE / EXAM Xray Chest One View REASON FOR EXAM depression COMPARISON: June 29, 2019 FINDINGS: The cardiac and mediastinal silhouettes appear normal and the lungs are clear. The bones and soft tissues are normal. The upper abdomen is unremarkable. IMPRESSION: No acute cardiopulmonary disease. Reported By Jovanny Valles MD on 11/21/19817 Signed By Jovanny Valles MD on 11/21/19822 Date Time CC: Jovanny Valles MD; Long Escalante DO Techn: FROJO Trans Dt/Tm: Trans by: DT Prt Dt/Tm: [phone]: Total DLP = 0.00 mGy-cm Fluoroscopy Time (in secs): Radiology Report January 19, 2020 8:33am Jovanny Valles MD completed [place] [address] [place] [address] [phone] NAME SEX PT STATUS ACCOUNT NUMBER MARIAN SNOWDEN [facility]F [id number] ORDERING PHYSICIAN LOCATION MEDICAL RECORD NO. Angel Martin DO [id number] ATTENDING PHYSICIAN DATE OF DATE OF EXAM/TIME Angel Martin DO 1990 01/19/20826 TYPE / EXAM US Abd single organ/quadrant REASON FOR EXAM abnormal lft COMPARISON: None TECHNIQUE: Real-time sonography of the abdomen is performed. FINDINGS: GALLBLADDER: The gallbladder is normal in appearance without any gallstones or gallbladder wall thickening. Common bile duct measures 3.8mm. The sonographic Szymanski's sign is negative. LIVER: The liver displays normal homogeneous architecture throughout. There is no intrahepatic or extrahepatic biliary dilatation. No focal masses are identified. RIGHT KIDNEY: The right kidney is normal in appearance. It measures approximately 10.0cm in long diameter and demonstrates no calculus or hydronephrosis. IMPRESSION: 1. No cholelithiasis or biliary ductal dilatation. 2. No renal calculus or hydronephrosis on the right. 3. No free intraperitoneal fluid. If there are clinical concerns for gallbladder dysfunction, follow-up nuclear medicine HIDA scan may be helpful for further evaluation. Reported By Jovanny Valles MD on 01/19/20832 Signed By Jovanny Valles MD on 01/19/2047 Date Time CC: Angel Martin DO; Jovanny Valles MD Techn: BUSMI Trans Dt/Tm: Trans by: DT Prt Dt/Tm: : Total DLP = 0.00 mGy-cm : Total Radiation Dose = 0.0000 mSv Lifetime Dose: 1.3206 mSv Radiology Report March 01, 2020 6:38pm Lalito Macedo MD completed [place] [id number] [place] [address] [phone] NAME SEX PT STATUS ACCOUNT NUMBER [facility] ER [id number] ORDERING PHYSICIAN LOCATION MEDICAL RECORD NO. Didier Singh MD ER [id number] ATTENDING PHYSICIAN DATE OF DATE OF EXAM/TIME Angel Martin 1990 03/01/201837 TYPE / EXAM Xray Chest One View REASON FOR EXAM overdose Clinical History/Indication for Exam: overdose Chest one view portable 03/01/2020 Clinical information: Overdose Comparison: 02/09/2020 Technique: PA or AP view. Findings: The heart size is normal. Pulmonary vascularity is normal. Lungs are clear of interval infiltrate, effusion, or pneumothorax. Impression: 1. No acute process in the chest. REPORT SIGNATURE ON FILE 03/01/2020 (18:38 Eastern Time ) Signed by: Lalito Macedo M.D. Reported By Lalito Macedo MD on 03/01/201837 Signed By Lalito Macedo MD on 03/01/201837 Date Time CC: Angel Martin DO; Lalito Macedo MD Techn: CUMME Trans Dt/Tm: Trans by: DT Prt Dt/Tm: [phone]: Total DLP = 0.00 mGy-cm Fluoroscopy Time (in secs): Radiology Report October 31, 2020 12:33am Rene Nye MD [facility] [address] [place] [address] [phone] NAME SEX PT STATUS ACCOUNT NUMBER MAR[facility] SNOWDEN [facility] ER [id number] ORDERING PHYSICIAN LOCATION MEDICAL RECORD NO. Herbert Chand MD ER [id number] ATTENDING PHYSICIAN DATE OF DATE OF EXAM/TIME Angel Martin 1990 10/30/202032 TYPE / EXAM CT Head without contrast REASON FOR EXAM headache; IV drug user,EtOH. Clinical History/Indication for Exam: headache; IV drug user,EtOH. CT HEAD WITHOUT INTRAVENOUS CONTRAST INDICATION: headache; IV drug user,EtOH. TECHNIQUE: Axial computed tomography images of the head/brain without intravenous contrast. Sagittal and coronal reformatted images were created and reviewed. This CT exam was performed using one or more of the following dose reduction techniques: automated exposure control, adjustment of the mA and/or kV according to patient size, and/or use of iterative reconstruction technique. COMPARISON: CT brain of 02/10/2020 FINDINGS: Brain: Unremarkable. No hemorrhage. No significant white matter disease. No edema. Ventricles: Unremarkable. No ventriculomegaly. Bones/joints: Unremarkable. No acute fracture. Soft tissues: Unremarkable. Sinuses: Unremarkable as visualized. No acute sinusitis. Mastoid air cells: Unremarkable as visualized. No mastoid effusion. Nasal cavity/septum: Mild deviation of the nasal septum. IMPRESSION: No acute infarct, hemorrhage, or mass. Automatic exposure control was used as a dose lowering technique. REPORT SIGNATURE ON FILE 10/31/2020 (00:33 Eastern Time ) Signed by: Rene Nye M.D. Reported By Rene Nye MD on 10/31/2032 Signed By Rene Nye MD on 10/31/2032 Date Time CC: Angel Martin DO; Rene Nye MD Techn: POLINA Trans Dt/Tm: Trans by: CARRILLO Prt Dt/Tm: : Total DLP = 422.00 mGy-cm : Total Radiation Dose = 1.3082 mSv Lifetime Dose: 7.9298 mSv Radiology Report October 31, 2020 12:48am Mitesh Leblanc MD completed [facility] [address] [place] [address] [phone] NAME SEX PT STATUS ACCOUNT NUMBER [facility] ER [id number] ORDERING PHYSICIAN LOCATION MEDICAL RECORD NO. Herbert Chand MD ER [id number] ATTENDING PHYSICIAN DATE OF DATE OF EXAM/TIME Angel Martin DO 1990 10/30/202013 TYPE / EXAM Xray Chest One View REASON FOR EXAM cellulitis R forearm;IV drug user;EtOH Clinical History/Indication for Exam: cellulitis R forearm;IV drug user;EtOH RADIOGRAPH OF THE CHEST 1 VIEW INDICATION: cellulitis R forearm;IV drug user;EtOH COMPARISON: October 30, 2020 FINDINGS: Lungs: Unremarkable. No consolidation. Pleural space: Unremarkable. No pneumothorax. Heart: Unremarkable. No cardiomegaly. Mediastinum: Unremarkable. Bones/joints: Unremarkable. IMPRESSION: Normal chest x-ray. REPORT SIGNATURE ON FILE 10/31/2020 (00:48 Eastern Time ) Signed by: Mitesh Leblanc M.D. Reported By Mitesh Leblanc MD on 10/31/2047 Signed By Mitesh Leblanc MD on 10/31/2047 Date Time CC: Angel Martin DO; Mitesh Leblanc MD Techn: [email or web address] Trans Dt/Tm: Trans by: DT Prt Dt/Tm: [id number]: Total DLP = 0.00 mGy-cm Fluoroscopy Time (in secs): Radiology Report October 31, 2020 1:00am Tootie Michel MD completed [place] [id number] [phone] NAME SEX PT STATUS ACCOUNT NUMBER [facility] ER [id number] ORDERING PHYSICIAN LOCATION MEDICAL RECORD NO. Herbertaleja Chand MD ER [id number] ATTENDING PHYSICIAN DATE OF DATE OF EXAM/TIME Angel Martin DO 1990 10/30/202033 TYPE / EXAM CT Upper extremity w/ contrast REASON FOR EXAM R forearm pain,red,swelling;eval abcess. Clinical History/Indication for Exam: R forearm just below elbow pain,red,swelling ;iv drug user, eval abcess. CT RIGHT UPPER EXTREMITY WITH INTRAVENOUS CONTRAST INDICATION: R forearm just below elbow pain,red,swelling ;iv drug user, eval abcess. TECHNIQUE: Axial computed tomography images of the right upper extremity with intravenous contrast. Sagittal and coronal reformatted images were created and reviewed. This CT exam was performed using one or more of the following dose reduction techniques: automated exposure control, adjustment of the mA and/or kV according to patient size, and/or use of iterative reconstruction technique. COMPARISON: No relevant prior studies available. FINDINGS: Bones/joints: No acute fracture or focal lesion. Soft tissues: There is superficial edema of the subcutaneous tissues of the medial forearm. No focal fluid collection. Adjacent muscle and fascia appears normal. IMPRESSION: Superficial Cellulitis. No abscess evident. Automatic exposure control was used as a dose lowering technique. Contrast Type: isovue 300. Contrast Volume: 100cc REPORT SIGNATURE ON FILE 10/31/2020 (01:00 Eastern Time ) Signed by: Tootie Michel M.D. Reported By Tootie Michel MD on 10/31/2099 Signed By Tootie Michel MD on 10/31/2099 Date Time CC: Angel Martin DO; Tootie Michel MD Techn: POLINA Olivas Dt/Tm: Trans by: CARRILLO Prt Dt/Tm: : Total DLP = 422.00 mGy-cm : Total Radiation Dose = 1.3082 mSv Lifetime Dose: 7.9298 mSv Health Concerns Health Concerns may be documented in an alternate section. Advance Directives Advance Directive Response Recorded Date/Time Advanced Directive No Anton pryor 2020 2:51am MOLST No October 31 2:51am Advance Directives on File or in chart? No October 31, 2020 2:51am Does Patient have a DNR? No October 31, 2020 2:51am Healthcare Proxy No Luis Alberto villarrealy 2020 2:51am Health Care Proxy Name Alba Snowden August 23, 2020 11:51am Living Will No July 272019 11:51am Chief Complaint and Reason for Visit Chief Complaint Office visit B19.20 COLLECTION PAIN B19.20,R94.5,D72.819 OVERDOSE - PRESCRIPTION PILL POISONING OVERDOSE CELLULITIS RIGHT FOREARM Reason for Visit Anxiety Cervical radiculopathy due to trauma Hepatitis C Immunosuppression Encounters Encounter Location(s) Ar rival/Admit Date Discharge/Depart Date Provider(s) Departed Emergency -Emergency Room ER November 15, 2019 2:53pm November 16, 2019 12:45am null Departed Emergency -Emergency Room ER November 21, 2019 7:37am November 21, 2019 12:34pm null Departed Physician/Provider Office Visit -[facility] January 17, 2020 9:15am January 17, 2020 10:28am Angel Martin DO Registered Referred -Laboratory January 17, 2020 10:11am Angel Martin DO Registered Referred -Occupational Medicine January 18, 2020 12:59pm Medicine of Occupational L.[facility]. Registered Referred -Ultrasound January 19, 2020 7:00am Angel Martin DO Departed Emergency -Emergency Room ER January 20, 2020 9:55pm January 21, 2020 2:30am null Registered Outpatient -[facility] February 10, 2020 7:41am February 11, 2020 11:15am Yanet Minor MD Departed Emergency -Emergency Room ER March 01, 2020 5:10pm March 01, 2020 9:02pm null Discharged Inpatient -[facility] October 31, 2020 2:34am November 02, 2020 3:18pm Mirza Darling MD Recent Diagnosis Onset Date Anxiety Cervical radiculopathy due to trauma Hepatitis C Immunosuppression Assessments Diagnosis Onset Date Res olution Status Anxiety acute Cervical radiculopathy due to trauma acute Hepatitis C chronic Immunosuppression acute Functional Status Observation Response Compa e Recorded Functional Status Complete [place] October 31, 2020 2:51am Goals Goals may be documented in an alternate section. Immunizations No Immunization Information Available Mental Status Observation Response Compa e Recorded Impairments Speech/Language October 30, 2020 7:41pm Medical Equipment No Medical Equipment Information available Insurance Providers Guarantor MARIAN SNOWDEN Address [address] [place], [place] [address] Contact Info. Home Phone: Payer Policy Id Coverage Id Subscriber's Name Subscriber Id Effective Date Expiration Date [facility] [id number] MARIAN SNOWDEN [id number] Self Pay Self N/A [facility] MEDICAID [id number] MARIAN Santacruz JACLYNUPPERT [id number] Plan of Treatment pain management referral refill gabapentin 100 mg po daily if worsens then go to emergency room f/u mental health continue james lentz sees psych at [facility] denies HI, denies SI if condition worsens then go to emergency room labs as ordered may need GI referral abd sonogram of liver Future Tests Future scheduled test information is unavailable Pending Tests Pending diagnostic test information is unavailable Future Visits Future appointment information is unavailable Referrals to Other Providers Reason for Referral Referral Start Date Provider Provider Conta ct Information Provider Address [address] [facility] [employer] Work Phone: [phone] [facility] [address] M54.12 - Radiculopathy, cervical region January 17, 2020 management pain Future Procedures Future procedure information is unavailable Future Medications Future medication information is unavailable Patient Instructions Methamphetamine Abuse (ED) Polysubstance Abuse (ED) Abdominal Pain (ED) Polysubstance Abuse (ED) Polysubstance Abuse (ED) Cellulitis (DC) Abdominal Pain (ED) Polysubstance Abuse (ED) Social History Smoking Status Status Date of Observation Current every day smoker October 9:39am Observation Status Observation Response Compa e of Response Smoking Status Current every day smoker November 02, 2020 9:39am Alcohol Use Yes October 30, 2020 8:33pm Substance Use Yes Octrusty 2020 8:33pm Smoking Status Current every day smoker August 23, 2020 11:51am Assigned Sex Male Vital Signs Vital Reading Result Ref erence Range Collection Date/Time Height 68 [in_i] November 15, 2019 3:26pm Weight 150.00 [lb_av] November 15, 2019 3:26pm Body Temperature 97.6 [degF] 97.6-99.5 November 15, 2019 11:47pm Heart Rate 60 /min 60-100 November 15, 2019 11:47pm Respiratory rate 16 /min 12-24 November 15, 2019 11:47pm Oxygen saturation by Pulse oximetry 96 % 95- 100 November 15, 2019 11:47pm BP Systolic 107 mm[Hg] November 15, 2019 11:47pm BP Diastolic 64 mm[Hg] November 15, 2019 11:47pm Height 68 [in_i] November 21, 2019 7:41am Weight 145.00 [lb_av] November 21, 2019 7:41am Body Temperature 98.1 [degF] 97.6-99.5 November 21, 2019 7:37am Heart Rate 98 /min 60-100 November 21, 2019 7:37am Respiratory rate 20 /min 12-24 November 21, 2019 7:37am Oxygen saturation by Pulse oximetry 99 % 95- 100 November 21, 2019 7:37am BP Systolic 146 mm[Hg] November 21, 2019 7:37am BP Diastolic 99 mm[Hg] November 21, 2019 7:37am Height 68.6 [in_i] January 17, 2020 10:16am Weight 147.37 [lb_av] January 17, 2020 10:16am Body Temperature 97.6 [degF] 97.6-99.5 January 17, 2020 10:16am Heart Rate 72 /min 60-100 January 17, 2020 10:16am Oxygen saturation by Pulse oximetry 97 % 95- 100 January 17, 2020 10:16am BP Systolic 112 mm[Hg] January 17, 2020 10:16am BP Diastolic 58 mm[Hg] January 17, 2020 10:16am BMI (Body Mass Index) 22.0 kg/m2 January 17, 2020 10:16am Height 68 [in_i] January 20, 2020 11:19pm Weight 140.00 [lb_av] January 20, 2020 11:19pm Body Temperature 97.7 [degF] 97.6-99.5 January 20, 2020 11:16pm Heart Rate 89 /min 60-100 January 20, 2020 11:16pm Respiratory rate 14 /min 12-January 20, 2020 11:16pm Oxygen saturation by Pulse oximetry 99 % 95- 100 January 20, 2020 11:16pm BP Systolic 107 mm[Hg] January 20, 2020 11:16pm BP Diastolic 63 mm[Hg] January 20, 2020 11:16pm Height 68 [in_i] February 11, 2020 10:52am Weight 145.00 [lb_av] February 11, 2020 10:52am Body Temperature 97.6 [degF] 97.6-99.5 February 11, 2020 3:00am Heart Rate 88 /min 60-100 February 11, 2020 7:00am Respiratory rate 14 /min 12-24 February 11, 2020 3:00am Oxygen saturation by Pulse oximetry 95 % 95- 100 February 11, 2020 3:00am BP Systolic 107 mm[Hg] February 11, 2020 3:00am BP Diastolic 62 mm[Hg] February 11, 2020 3:00am BMI (Body Mass Index) 21.7 kg/m2 February 11, 2020 10:52am Height 68 [in_i] March 01, 2020 6:36pm Weight 145.00 [lb_av] March 01, 2020 6:36pm Body Temperature 97.6 [degF] 97.6-99.5 March 01, 2020 6:10pm Heart Rate 112 /min 60-1 March 01, 2020 6:10pm Respiratory rate 20 /min -March 01, 2020 6:10pm Oxygen saturation by Pulse oximetry 99 % 95- 100 March 01, 2020 6:10pm BP Systolic 125 mm[Hg] March 01, 2020 6:10pm BP Diastolic 92 mm[Hg] March 01, 2020 6:10pm Height 68 [in_i] November 02, 2020 9:39am Weight 141.40 [lb_av] November 02, 2020 9:39am Body Temperature 97.8 [degF] 97.6-99.5 November 02, 2020 8:30am Heart Rate 76 /min 60-100 November 02, 2020 8:30am Respiratory rate 20 /min 12-November 02, 2020 8:30am Oxygen saturation by Pulse oximetry 98 % 95- 100 November 02, 2020 8:30am BP Systolic 121 mm[Hg] November 02, 2020 8:30am BP Diastolic 66 mm[Hg] November 02, 2020 8:30am BMI (Body Mass Index) 21.4 kg/m2 November 02, 2020 9:39am Hospital Discharge Instructions Additional Instructions 1. Follow-up with primary care doctor in 5 to 7 days and urgent care center in [facility] and new primary care Dr. Escalona at [facility] 2. Cardiac diet 3. Activity as tolerated 4. Follow-up with psychiatry and please coordinate through your primary care pr ovider
--- OUTSIDE RECORDS SUMMARY | 2020-12-22 14:28 | CCD ---
Author Author [facility] Organization [facility] Address Unknown Phone Unavailable Care Team Providers Care Automotive Engineer Name Role Phone Iqra Maldonado Unavailable PROBLEMS No Information ALLERGIES Allergen (clinical drug ingredient) Drug/Non Drug Allergy do cumented on EMR Reaction Allergy Type Onset Date Status seasonal Unknown Non Drug Allergy Active ENCOUNTERS from 1990 to 2020-12-03 Encounter Location Date Provider Diagnosis [address] [address] Nov, Iqra Guerrierrik Substance use disorder F19.90 ; Hepatiti s-C B19.20 ; Alcohol use Z72.89 and Encounter to establish care Z76.89 IMMUNIZATIONS Vaccine Route Administration Date Status TDAP 0.5mL (Boostrix) IM Intramuscular Aug 09, 2016 Administe red Influenza (6mo & up) Fluzone Unknown Sep 02, 2016 Oth ers SOCIAL HISTORY Tobacco Use: Social History Observation Description Date Details (start date - stop date) Never Smoker Sex Assigned At : Social History Observation Description Sex Assigned At Unknown Education: Question Answer Notes Level of Education: Finished High School Language: Question Answer Notes Languages spoken: Lao Holiness: Question Answer Notes Holiness No gnosticist beliefs that would impact health care. Sexual Hx: Question Answer Notes Had sex in the last 12 months (vaginal, oral, or anal)? Yes Have you ever had an STD? Yes with Women only Use protection? Yes Other? No Herpes? No Syphilis? No GC? No Chlamydia? Yes How often? Some of the time Alcohol Screening: Question Answer Notes Did you have a drink containing alcohol in the past year? Ye s Points 2 Interpretation Negative How often did you have six or more drinks on one occas ion in the past year? Never (0 points) How many drinks did you have on a typica l day when you were drinking in the past year? 3 or 4 (1 point) How often did you have a drink containing alcohol in t he past year? Monthly or less (1 point) Tobacco Use: Question Answer Notes Are you a: never smoker REASON FOR REFERRAL No Information VITAL SIGNS Weight 141.6 lbs Nov, Height 68 in Nov, BMI 21.53 kg/m2 Nov, Heart Rate 82 /min Nov, Respiratory Rate 18 /min Nov, Temperature 98.2 degrees Fahrenheit Nov, Oximetry 97% Nov, Blood pressure systolic 130 mm Hg Nov, Blood pressure diastolic 74 mm Hg Nov, MEDICATIONS No Known Medications PROCEDURES No Information RESULTS Component Value Reference Range CBC with Differential Reviewed date:11/28/2020 08:54:44 Interpretation: Performing Lab:[facility] [address] [address] , ,[place] [address] WHITE BLOOD COUNT 4.0 4.0-10.0 RED BLOOD COUNT 4.51 4.30-6.10 HEMOGLOBIN 14.2 13.5-17.5 HEMATOCRIT 41.1 42.0-52.0 MEAN CORPUSCULAR VOLUME 91.1 80.0-96.0 MEAN CORPUSCULAR HEMOGLOBIN 31.5 27.0-33.0 MEAN CORPUSCULAR HGB CONC 34.5 32.0-36.5 RED CELL DISTRIBUTION WIDTH 12.4 11.5-14.5 PLATELET COUNT, AUTOMATED 222 150-450 NEUTROPHILS % 29.8 36.0-66.0 LYMPH % 54.1 24.0-44.0 MONO % 10.2 0.0-5.0 EOS % 5.0 0.0-3.0 BASO % 0.7 0.0-1.0 NEUTROPHILS # 1.2 1.5-8.5 LYMPH # 2.2 1.5-5.0 MONO # 0.4 0.0-0.8 EOS # 0.2 0.0-0.5 BASO # 0.0 0.0-0.2 Comprehensive Metabolic Profile (CMP) Reviewed date:11/28/2020 08:54:21 Interpretation: Performing Lab:[facility] [id number] , ,[place] [address] GLUCOSE, FASTING 84 70-100 BLOOD UREA NITROGEN 11 7-18 CREATININE FOR GFR 0.82 0.70-1.30 GLOMERULAR FILTRATION RATE > 60.0 >60 SODIUM LEVEL 140 136-145 POTASSIUM SERUM 3.8 3.5-5.1 CHLORIDE LEVEL 103 98-107 CARBON DIOXIDE LEVEL 32 21-32 CALCIUM LEVEL 9.5 8.5-10.1 AST/SGOT 34 7-37 ALT/SGPT 96 12-78 ALKALINE PHOSPHATASE 72 45-117 BILIRUBIN,TOTAL 0.3 0.2-1.0 TOTAL PROTEIN 6.8 6.4-8.2 ALBUMIN 4.0 3.2-5.2 ALBUMIN/GLOBULIN RATIO 1.4 LIPID PANEL (CARDIAC RISK) Reviewed date:11/28/2020 08:54:32 Interpretation: Performing Lab:[facility] [id number] , ,[place] [address] TRIGLYCERIDES LEVEL 202 <150 CHOLESTEROL LEVEL 115 <200 HDL CHOLESTEROL 43 >40 LDL CHOLESTEROL 32 <100 NON-HDL-C 72 CHOLESTEROL RISK RATIO 2.674 <5 REASON FOR VISIT to re-establish, last seen 2013 MEDICAL (GENERAL) HISTORY Type Description Date Medical History Anxiety Medical History Depression Medical History GERD Medical History Chronic Rhinitis Medical History poly substnace use- meth IVuse Medical History Marijuana Medical History Hepatitis C Medical History Bipolar type 1 Surgical History Denies surgery Goals Section No Information Health Concerns No Information MEDICAL EQUIPMENT No Information MENTAL STATUS No Information FUNCTIONAL STATUS No Information ASSESSMENTS Encounter Date Diagnosis Assessment Notes Treatment Notes Treatm ent Clinical Notes Nov, Substance use disorder (ICD-10 - F19.90) still using meth/heroin obtain urine toxicology marijuana use. Discussed rehab. declines rehab. Wants to get treatment for Hep C. 11/2020 Urine Toxicology: + Amphetamins, methamphetamine , Cannabinoid, Cocaine, Opiates, morphine, Fentanyl, norfentanyl, Nov, Hepatitis-C (ICD-10 - B19.20) obtain labs. Discussed needs to be off illicit drug to get treatment declines rehab Advised Pschiatry care declines 07/2020 HepBsA negative, Hep Bs AB + 07/2020 PCR [id number] 11/2019 HCV RNA + 02 Nov, 2020 Alcohol use (ICD-10 - Z72.89) 1-2 drinks daily lives with friend Nov, Encounter to establish care (ICD-10 - Z76.89) Establishing care PLAN OF TREATMENT Treatment Notes Assessment Notes Clinical Notes Substance use disorder still using meth/ heroinobtain urine toxicologymarijuana use.Discussed rehab. declines rehab.Wants to get treatment for Hep C.11/2020 Urine Toxicology: + Amphetamins, methamphetamine , Cannabinoid, Cocaine, Opiates, morphine, Fentanyl, norfentanyl, Hepatitis-C obtain labs.Discusse d needs to be off illicit drug to get treatmentdeclines rehabAdvised Pschiatry [id number]/2020 HepBsA negative, Hep Bs AB +07/2020 PCR [id number] HCV RNA + Alcohol use 1-2 drinks dailylive s with friend Encounter to establish care Establishing care Treatment Notes Test Name Order Date HEPATITIS C QUANT BY PCR 2020-11-27 HEPATITIS C GENOTYPE 2020-11-27 HEPATITIS C FIBROSURE [id number] 2020-11-27 Future Test Test Name Order Date PAIN MGMT UR 14 PANEL [id number] Next Appt Details 4 Months f/u Reason: Provider Name:Iqra Maldonado, 03-25 01:00:00 PM, [address] [place], [address], Insurance Providers Payer Name Payer Address Payer Phone Insured Name Patient Relati onship to Insured Coverage Start Date Coverage End Date SELF PAY ONLY - SP1 MARIAN DAMON self
--- NOTE | 2020-12-23 19:39 | ECGEPIP ---
[facility] - ED Test Date: 2020-12-22 Pat Name: MARIAN SNOWDEN Department: Room: - Gender: Male Risk Professional: TC : 1990 Requested By: More [place] Order Number: [id number] Reading MD: Sai Cazares Measurements Intervals [place] Rate: 94 P: 73 UT: 154 QRS: 78 QRSD: 86 T: 63 QT: 366 QTc: 457 Interpretive Statements Normal sinus rhythm POOR R WAVE PROGRESSION RATE CHANGE COMPARED TO 08/18/20 Electronically Signed on 12-23-2020 19:38:50 EST by Sai Cazares
== END 2020-12-22 13:50 | disposition left against medical advice (07) ==
LOC: M ED 10:07
DX: T40.1X1A Poisoning by heroin, accidental (unintentional), initial encounter (principal); X58.XXXA Exposure to other specified factors, initial encounter; Y92.89 Other specified places as the place of occurrence of the external cause; B19.20 Unspecified viral hepatitis C without hepatic coma; F15.10 Other stimulant abuse, uncomplicated; F33.9 Major depressive disorder, recurrent, unspecified; F41.9 Anxiety disorder, unspecified

== ENCOUNTER 2020-12-25 12:44 | Inpatient (IN) | payer MEDICAID, OTHER ==
[~2020-12-25] VITALS: Ht 172.7 cm; Wt 59.6 kg
[2020-12-25] MEDS ORDERED: LIDOCAINE 2% 5ML JELLY UROJET TOP ONE (12:55)
[2020-12-25 13:07] LABS: HEMATOCRIT 38.2 % (42.0-52.0); HEMOGLOBIN 13.6 g/dl (13.5-17.5); MEAN CORPUSCULAR HEMOGLOBIN 31.9 pg (27.0-33.0); MEAN CORPUSCULAR HGB CONC 35.6 g/dl (32.0-36.5); MEAN CORPUSCULAR VOLUME 89.7 fl (80.0-96.0); PLATELET COUNT, AUTOMATED 248 10^3/uL (150-450); RED BLOOD COUNT 4.26 10^6/uL (4.30-6.10); WHITE BLOOD COUNT 7.3 10^3/uL (4.0-10.0)
[2020-12-25 13:57] LABS: ACETAMINOPHEN LEVEL < 2.0 UG/ML (10.0-30.0); ALBUMIN 4.4 GM/DL (3.2-5.2); ALT/SGPT 118 U/L (12-78); BILIRUBIN,DIRECT 0.2 MG/DL (0.0-0.2); BILIRUBIN,TOTAL 0.5 MG/DL (0.2-1.0); BLOOD UREA NITROGEN 9 MG/DL (7-18); CALCIUM LEVEL 8.8 MG/DL (8.5-10.1); CARBON DIOXIDE LEVEL 30 MEQ/L (21-32); CHLORIDE LEVEL 105 MEQ/L (98-107); CREATININE FOR GFR 1.19 MG/DL (0.70-1.30); ETHYL ALCOHOL (ETHANOL) < 0.003 % (0.000-0.010); GLOMERULAR FILTRATION RATE > 60.0 (>60); GLUCOSE, FASTING 118 MG/DL (70-100); POTASSIUM SERUM 3.3 MEQ/L (3.5-5.1); SALICYLATE LEVEL < 1.7 MG/DL (5.0-30.0); SODIUM LEVEL 142 MEQ/L (136-145); TOTAL PROTEIN 7.5 GM/DL (6.4-8.2)
[2020-12-25 15:36] LABS: AMPHETAMINES LEVEL URINE POSITIVE (NEGATIVE); BARBITURATES URINE NEGATIVE (NEGATIVE); BENZODIAZEPINES URINE NEGATIVE (NEGATIVE); CANNABINOIDS URINE POSITIVE (NEGATIVE); COCAINE METABOLITE URINE NEGATIVE (NEGATIVE); METHADONE URINE NEGATIVE (NEGATIVE); OPIATES URINE POSITIVE (NEGATIVE); PHENCYCLIDINE URINE NEGATIVE (NEGATIVE)
[2020-12-25] MEDS ORDERED: NALOXONE 2MG/2ML SYRINGE (J2310 PER 1MG) IM STA (15:59)
[2020-12-25] MEDS ORDERED: POTASSIUM CHLORIDE 10 MEQ SR TABLET PO ONE (17:40)
[2020-12-25 18:30] LABS: RSV AMPLIFICATION NEGATIVE (NEGATIVE)
[2020-12-25] MEDS ORDERED: MAALOX 30 ML SUSP *UDC PO PRN (18:45)
[2020-12-25] MEDS ORDERED: MOM 30ML SUSPENSION UDC PO PRN (18:45)
[2020-12-25] MEDS ORDERED: OLANZapine ORAL DISINTEGRATING TAB 5MG PO PRN ×2 (18:45→18:55)
[2020-12-25] MEDS ORDERED: ACETAMINOPHEN TAB 650MG DOSE (2X325MG) PO PRN (18:45)
[2020-12-26] MEDS: traZODone 50 MG TAB PO PRN ×2 (00:06→20:48)
[2020-12-26 00:39] VITALS: BP 124/58
[2020-12-26 06:37] VITALS: BP 125/57
[2020-12-26] MEDS ORDERED: INFLUENZA QUADRIVALENT PF VACCINE 0.5ML SYRINGE IM ONE (09:00)
--- NOTE | 2020-12-26 15:32 | HPEPDOC ---
[facility] Medical History & Physical Date of Admission Dec 26, 2020 Date of Service: Dec 26, 2020 History and Physical CHIEF COMPLAINT: psychosis HISTORY OF PRESENT ILLNESS: 30 yo M with a hx of HCV, polysubstance abuse, bipolar, schizophrenia, was brought to [facility] ED by EMS and police, due to destructive and paranoid behaviour at [facility]. Patient presently admitted to [facility] for psychiatric evaluation. Hospitalist consulted for medical intake. Per [facility] staff, patient was being aggressive this morning, and is not appropriate for history and exam at this time. Hx was obtained from collateral documentation. review of vital signs and labs was done, mildly decrease K+ noted, replaced in ER. PAST MEDICAL HISTORY: Depression Anxiety polysubstance abuse Hep C SOCIAL HISTORY: etoh use 3-4 times per week polysubstance abuse FAMILY HISTORY: unable to obtain ALLERGIES: Please see below. REVIEW OF SYSTEMS: Unable to be completed due to psychotic behaviour, inappropriate for exam per nursing staff HOME MEDICATIONS: Please see below. PHYSICAL EXAMINATION: Physical exam was not completed as patient is inappropriate for exam per nursing staff LABORATORY DATA: See below. MICROBIOLOGY: Please see below. ASSESSMENT: 31 yo M with hx of depression, polysubstance abuse admitted to [facility] for psychotic behaviour. Hospitalist service consulted for medical management . PLAN: Psychosis: per psychiatry HCV: outpatient follow up. Sees Dr. Salcedo Please re-consult as need/when patient is appropriate for exam. Vital Signs Vital Signs Date Time Temp Pulse Resp B/P (MAP) Pulse Ox O2 Delivery O2 Flow Rate FiO2 12/26/20 06:37 97.9 66 18 125/57 (79) 100 Room Air 12/26/20 00:39 2.0 Laboratory Data Labs 24H Laboratory Tests 2 12/25/20 17:41: Coronavirus (COVID-19)(PCR) NEGATIVE, Influenza Type A (RT-PCR) NEGATIVE, Influenza Type B (RT-PCR) NEGATIVE, Respiratory Syncytial Virus (PCR) NEGATIVE Home Medications No Active Prescriptions or Reported Meds Allergies Coded Allergies: No Known Drug Allergies (Verified Allergy, Unknown, 12/05/19) THONY LEON MD Dec 26, 2020 15:32
[2020-12-26 16:33] VITALS: BP 106/58
--- NOTE | 2020-12-26 16:50 | MHHPEPDOC ---
General Date Of Admission: Dec 25, 2020 Legal Status: 9.39 Chief Complaint "I guess I am depressed." History of Present Illness HISTORY OF THE PRESENT ILLNESS: Patient is a 30 -year-old Single, Unemployed, Undomiciled, , male, who was brought to [facility] after the Police were called to the Motel Room, due to noise complaints. He reports that he has been experiencing feelings of Depression x 2-1 month. In review of patient's history, he has a long history of substance use and abuse, overdoses both intentional and unintentional. On this occasion, patient is quite dismissive and reporting depression but minimal responses throughout the interview. Much of the assessment is obtained from old charts. Per ED Report: Pt. reports he has been feeling stressed, very depressed. He reports he and gf "did some stuff" earlier today and someone called police. He states he does not remember much about what happened, states he remembers the police coming and that they may have come through a window. He states that his girlfriend had "some stuff" and they did it, states they "shot up", stating he doesn't know what it was. Pt. is very guarded during interview, states just admit me, I don't want to talk about it. Pt. [facility] He denies current out-pt treatment. Pt. mother called, stating concern. She reported a short time ago, pt called her and while talking, he told her not to say much because people were recording the conversation. She states police told her that pt was very paranoid today, acting inappropriately, trashed hotel room. Psychiatric Review of Systems Depression (2 or more weeks): insomnia/hypersomnia, difficulty concentrating, other (stressed out) Bambi (4 or more days of): denies Psychosis: paranoia PTSD: denies Anxiety: denies Past Psychiatric History Previous Psychiatric Diagnosis: AHD, Bipolar, Anxiety Previous [facility]iatric [facility] Attempts: Numerous overdoses both intentional and unintentional Psychiatric Follow-up: None at this time. Psychiatric medications: Buspar and abilify Past Medical History Head Injury: No Seizures: No Hospitalizations: No Surgeries: No Family Medical/Psychiatric HX Psychiatric Disorders: No Addiction: No Suicide Attemps/Completions: No Addiction History nicotine, alcohol, amphetamines, opioids, heroin (history of use), other (cannabis) Social History Childhood: Born in [place], lived with his mother and 2 brothers. Abuse/Trauma: Refused to answer Current Living Situation: States that he has housing issues, currently staying in a motel Education: refused to answer Employment: Not employed Social Support: Girlfriend. Legal: Denied Marital: Single Mental Status Examination General Appearance: disheveled, appears stated age, hospital scubs/clothing Build: thin Demeanor: mistrustful, guarded Eye Contact: avoidant Activity: other (irritated, dismissive) Behavior: agitated Speech: impoverished Mood: depressed, irritable Affect: flat Thought Process: logical/linear Thought Content (Delusions): none reported Thought Content (Other): none reported Thought Content (Aggressive): none reported Perception (Hallucinations): none reported Perception (Other): none reported Cognition (Impairment of): none reported Cognition(Intelligence Est.): average Oriented: Awake, Alert, Oriented times three Insight: fair Judgment: Fair Psychosis: Denies Diagnoses Unspecified Depressive Disorder Amphetamine Use Disorder Opioid Use Disorder Alcohol Use Disorder Nicotine Use Disorder A-FIB/CHADSVASC A-FIB History Current/History of A-Fib/PAF?: No Current PO Anticoag Therapy: No Assessment Patient is a 30 year old Single, Unemployed, Undomiciled, Male who reports that he was brought to [facility] after the police were called for noise complaints from their room. He reports that he and his girlfriend were "shooting up" in the initial interview patient reported that he was "depressed" According to his collateral, his mother he was very paranoid acting inappropriately and had trashed the motel room. Patient has had multiple admissions to this facility mainly due to overdose both intentional and unintentional. On this occasion, patient's only complaint is depression but wants no medications. He has a long history of abuse of methamphetamines, Cannabis, prescription medications, and Opiates. We will monitor for several days and discharge when he is stable. Will encourage patient to consider treatment with [facility] which he has had in the past. Will reinforce need for rehab on discharge. Initial Treatment Plan 1. Patient was admitted on a [9.39] status. 2. Complete history was obtained. 3. With patients permission, family will be contacted and database will be expanded. 4. Patients medication regimen will be reviewed and changed accordingly. 5. Patient will be provided with protected environment. 6. Patient will be treated with individual, group, and milieu therapies. 7. Patient will receive supportive psych-education. 8. Discharge planning will commence immediately. 9. Outpatient follow-up treatment will be strongly recommended. 10. The initial treatment plan will focus initially on: * Depression. * Risk for suicide. ESTIMATED LENGTH OF STAY: 3-5 DAYS. TIME SPENT COUNSELING AND COORDINATING INITIAL CARE: 60 minutes. Vital Signs Vital Signs Date Time Temp Pulse Resp B/P (MAP) Pulse Ox O2 Delivery O2 Flow Rate FiO2 12/26/20 06:37 97.9 66 18 125/57 (79) 100 Room Air 12/26/20 00:39 2.0 Laboratory Data 24H Labs Laboratory Tests 2 12/25/20 12:55: Nucleated Red Blood Cells % (auto) 0.0, Anion Gap 7L, Glomerular Filtration Rate > 60.0, Calcium Level 8.8, Total Bilirubin 0.5, Direct Bilirubin 0.2, Aspartate Amino Transf (AST/SGOT) 56H, Alanine Aminotransferase (ALT/SGPT) 118H, Alkaline Phosphatase 99, Total Protein 7.5, Albumin 4.4, Albumin/Globulin Ratio 1.4, Thyroid Stimulating Hormone (TSH) 1.240, Salicylates Level < 1.7L, Acetaminophen Level < 2.0L, Ethyl Alcohol Level < 0.003 12/25/20 14:56: Urine Opiates Screen POSITIVEH, Urine Methadone Screen NEGATIVE, Urine Barbiturates Screen NEGATIVE, Urine Phencyclidine Screen NEGATIVE, Urine Amphetamines Screen POSITIVEH, Urine Benzodiazepines Screen NEGATIVE, Urine Cocaine Metabolite Screen NEGATIVE, Urine Cannabinoids Screen POSITIVEH 12/25/20 17:41: Coronavirus (COVID-19)(PCR) NEGATIVE, Influenza Type A (RT-PCR) NEGATIVE, Influenza Type B (RT-PCR) NEGATIVE, Respiratory Syncytial Virus (PCR) NEGATIVE CBC/BMP Laboratory Tests 12/25/20 12:55 Medications No Active Prescriptions or Reported Meds Allergies Coded Allergies: No Known Drug Allergies (Verified Allergy, Unknown, 12/05/19) JAMEEL BELL NP Dec 26, 2020 13:03
[2020-12-27 06:23] VITALS: BP 102/55
--- NOTE | 2020-12-27 11:26 | MHDSPDOC ---
[facility] Discharge Summary Discharge Summary DATE OF ADMISSION: Dec 25, 2020 at 18:45 DATE OF DISCHARGE: December 27, 2020 at 1120 DISCHARGE DIAGNOSES: Unspecified Depressive Disorder Amphetamine Use Disorder Opioid Use Disorder Alcohol Use Disorder Nicotine Use Disorder REASON FOR ADMISSION: Patient is a 30 -year-old Single, Unemployed, Undomiciled, , male, who was brought to [facility] after the Police were called to the Motel Room, due to noise complaints. He reports that he has been experiencing feelings of Depression x 2 weeks-1 month. In review of patient's history, he has a long history of substance use and abuse, overdoses both intentional and unintentional. On this occasion, patient is quite dismissive and reporting depression but minimal responses throughout the interview. Much of the assessment is obtained from old charts. Per ED Report: Pt. reports he has been feeling stressed, very depressed. He reports he and gf "did some stuff" earlier today and someone called police. He states he does not remember much about what happened, states he remembers the police coming and that they may have come through a window. He states that his girlfriend had "some stuff" and they did it, states they "shot up", stating he doesn't know what it was. Pt. is very guarded during interview, states just admit me, I don't want to talk about it. Pt. has several admission to this [facility]. He denies current out-pt treatment. Pt. mother called, stating concern. She reported a short time ago, pt called her and while talking, he told her not to say much because people were recording the conversation. She states police told her that pt was very paranoid today, acting inappropriately, trashed hotel room. CONSULTANTS INVOLVED: See Medical H + P by Hospitalist TREATMENT AND PROGRESS ON THE UNIT: Patient was admitted to the [facility] on a legal status he was afforded the following treatment modalities: 1) Individual Therapy 2) Group Therapy 3) Medication Management 4) Milieu Therapy 5) Safe Environment HOSPITAL COURSE: Patient was admitted to [facility] on a . Due to his reports of depression and paranoia he was admitted. On initial interview patient reported depression with no suicidal ideation, he was not paranoid. He reports a long history of substance use and dependence and we have monitored his behaviors for any threats of self harm to himself and others. Patient is isolative and withdrawn and out for meals only. He denies any need for continued hospitalization and requested to be discharged today. Given that the patient has been monitored for several days and he has been compliant with treatment, it is clear that patient no longer poses a danger to himself. I am in agreement that patient can be discharged today, He is agreeable to return to [facility] for substance use treatment and [place] for mental health services. DISCHARGE ASSESSMENT: In today's interview, patient is alert and oriented, pts dress is appropriate. Hygiene and grooming is fair. He was found in bed. Denies depression and anxiety. Denies suicidal and homicidal ideation, planning or intent. Denies and is not observed with donny, psychotic symptoms of delusions, bizarre thinking, obsessions, paranoia, ruminations illogical thoughts, flight of ideas or having poor insight and judgement. Patient has normal mentation, declines further hospitalization on a voluntary status and meets criteria for discharge today. Patient encouraged to return to hospital if his symptoms worsen or change and encouraged to call unit if he/she/they needs to speak to provider for questions regarding medications or care. MENTAL STATUS EXAMINATION ON DISCHARGE: Patient is a 30 -year-old Single, Unemployed, Undomiciled, , male, who was brought to [facility] after the Police were called to the [facility] - upon evaluation in the ED, he reported depression x 1 month. Speech: Is fluid, conversant, normal rate, tone and volume Language skills are intact Thought processes including: linear and goal oriented Thought content: denies depression and anxiety. Denies suicidal/homicidal ideation, planning or intent. Abstract reasoning, and computation: fair Description of associations: denies, none observed Description of abnormal or psychotic thoughts: denies, none observed. Judgment: fair Insight: fair Orientation: alert and oriented to person, place, time and situation Recent and remote memory: intact Attention span and concentration: good Language: expansive Fund of knowledge: average Mood: Euthymic Mood Affect: reactive MEDICATIONS ON DISCHARGE: Patient refused medications, none prescribed PLAN/FOLLOWUP ARRANGEMENTS: [facility] and [facility] The amount of time spent in the coordination of care for this patient was approximately 25 minutes. Vital Signs/I&Os Vital Signs Date Time Temp Pulse Resp B/P (MAP) Pulse Ox O2 Delivery O2 Flow Rate FiO2 12/27/20 06:23 97.6 72 18 102/55 (71) 95 Room Air 12/26/20 00:39 2.0 Medications No Active Prescriptions or Reported Meds Allergies Coded Allergies: No Known Drug Allergies (Verified Allergy, Unknown, 12/05/19) JAMEEL BELL NP Dec 27, 2020 11:26
== END 2020-12-27 14:20 | disposition home or self-care (01) | DRG 754 ==
LOC: M ED 12:44 → M ED INP 18:45 → M PSY 23:32
PROVIDERS: ADMIT Psychiatry & Neurology Psychiatry; ATTEND Psychiatry & Neurology Psychiatry
DX: F32.9 Major depressive disorder, single episode, unspecified (principal); F10.10 Alcohol abuse, uncomplicated; F17.200 Nicotine dependence, unspecified, uncomplicated; F11.90 Opioid use, unspecified, uncomplicated; F15.90 Other stimulant use, unspecified, uncomplicated

== ENCOUNTER 2021-02-26 05:59 | Emergency (ER) | payer MEDICAID, OTHER ==
[~2021-02-26] VITALS: Ht 172.7 cm; Wt 62.9 kg
[2021-02-26] MEDS ORDERED: NS 1,000 ML IV ONE (06:55)
[2021-02-26] MEDS ORDERED: KETOROLAC 30 MG/ML 1ML VIAL IV ONE (06:55)
[2021-02-26 07:32] LABS: BASO % 0.2 % (0.0-1.0); EOS # 0.1 10^3/uL (0.0-0.5); HEMATOCRIT 41.9 % (42.0-52.0); HEMOGLOBIN 14.7 g/dl (13.5-17.5); LYMPH # 1.8 10^3/uL (1.5-5.0); LYMPH % 39.5 % (24.0-44.0); MEAN CORPUSCULAR HEMOGLOBIN 32.3 pg (27.0-33.0); MEAN CORPUSCULAR HGB CONC 35.1 g/dl (32.0-36.5); MEAN CORPUSCULAR VOLUME 92.1 fl (80.0-96.0); MONO # 0.4 10^3/uL (0.0-0.8); MONO % 9.4 % (2.0-8.0); NEUTROPHILS # 2.2 10^3/uL (1.5-8.5); NEUTROPHILS % 48.7 % (36.0-66.0); PLATELET COUNT, AUTOMATED 201 10^3/uL (150-450); RED BLOOD COUNT 4.55 10^6/uL (4.30-6.10); WHITE BLOOD COUNT 4.6 10^3/uL (4.0-10.0)
[2021-02-26 07:57] LABS: BLOOD UREA NITROGEN 9 MG/DL (7-18); CALCIUM LEVEL 9.8 MG/DL (8.5-10.1); CARBON DIOXIDE LEVEL 28 MEQ/L (21-32); CHLORIDE LEVEL 103 MEQ/L (98-107); CREATININE FOR GFR 0.67 MG/DL (0.70-1.30); GLOMERULAR FILTRATION RATE > 60.0 (>60); GLUCOSE, FASTING 96 MG/DL (70-100); POTASSIUM SERUM 3.4 MEQ/L (3.5-5.1); SODIUM LEVEL 139 MEQ/L (136-145); TROPONIN I < 0.02 NG/ML (< 0.10)
[2021-02-26 07:58] LABS: ERYTHROCYTE SEDIMENTATION RATE 4 mm/hr (0-15)
[2021-02-26 08:07] LABS: RSV AMPLIFICATION NEGATIVE (NEGATIVE)
[2021-02-26] MEDS ORDERED: POTASSIUM CHLORIDE 10 MEQ SR TABLET PO ONE (08:20)
--- NOTE | 2021-02-26 09:23 | REP ---
INDICATION: chest pain. COMPARISON: 02/25/2020. TECHNIQUE: Single portable AP view of the chest was performed. FINDINGS: There is no acute infiltrate or pulmonary edema. Lungs are clear. The heart is not significantly enlarged. The mediastinal silhouette is unremarkable. The visualized osseous structures are intact. IMPRESSION: No acute pulmonary disease. <Electronically signed by Scout Agustin > 02/26/21 0919
[2021-02-26 09:40] VITALS: BP 135/87
[2021-02-26 11:16] LABS: CHLAMYDIA DNA AMPLIFICATION NEGATIVE (NEGATIVE); GC DNA AMPLIFICATION NEGATIVE (NEGATIVE)
--- NOTE | 2021-02-26 17:51 | ECGEPIP ---
[facility] - ED Test Date: 2021-02-26 Pat Name: MARIAN SNOWDEN Department: Room: - Gender: Male Patient Appointment Coordinator: : 1990 Requested By: MADHAVI FRASER Order Number: [id number] Reading MD: More [place] Measurements Intervals [place] Rate: 78 P: 70 CA: 168 QRS: 66 QRSD: 88 T: 52 QT: 386 QTc: 440 Interpretive Statements Normal sinus rhythm decreased rate 12/22/20 Electronically Signed on 02-26-2021 17:51:14 EDT by More [place]
== END 2021-02-26 09:41 | disposition home or self-care (01) ==
LOC: M ED 05:59
DX: R51.9 Headache, unspecified (principal); R07.89 Other chest pain; F31.9 Bipolar disorder, unspecified; B19.20 Unspecified viral hepatitis C without hepatic coma; K21.9 Gastro-esophageal reflux disease without esophagitis; F17.210 Nicotine dependence, cigarettes, uncomplicated
CPT/HCPCS: 36415; 71045; 80048; 81001; 85025; 85652; 86140; 87631; 87661; 93005; 96361; 96374; 99284; J1885

== ENCOUNTER 2021-03-02 08:19 | Emergency (ER) | payer OTHER ==
[~2021-03-02] VITALS: Ht 172.7 cm; Wt 64.0 kg
[2021-03-02] MEDS ORDERED: NALOXONE INJ 0.4MG/1ML VIAL (J2310 PER 1MG) IV STA (08:58)
[2021-03-02 09:11] LABS: HEMATOCRIT 38.5 % (42.0-52.0); HEMOGLOBIN 13.4 g/dl (13.5-17.5); MEAN CORPUSCULAR HEMOGLOBIN 32.4 pg (27.0-33.0); MEAN CORPUSCULAR HGB CONC 34.8 g/dl (32.0-36.5); PLATELET COUNT, AUTOMATED 217 10^3/uL (150-450); RED BLOOD COUNT 4.14 10^6/uL (4.30-6.10); WHITE BLOOD COUNT 5.4 10^3/uL (4.0-10.0)
[2021-03-02 09:27] LABS: ATYPICAL LYMPH 15 % (0-5); BASOPHILS 1 % (0-1); EOSINOPHILS 2 % (0-3); LYMPHOCYTES 29 % (16-44); MONOCYTES 7 % (0-5); NEUTROPHILS 45 % (28-66)
[2021-03-02 09:28] LABS: ANISOCYTOSIS 1+; PLATELET ESTIMATE NORMAL (NORMAL)
[2021-03-02 09:53] LABS: ACETAMINOPHEN LEVEL < 2.0 UG/ML (10.0-30.0); ALT/SGPT 96 U/L (12-78); BILIRUBIN,DIRECT 0.1 MG/DL (0.0-0.2); BILIRUBIN,TOTAL 0.4 MG/DL (0.2-1.0); BLOOD UREA NITROGEN 10 MG/DL (7-18); CALCIUM LEVEL 8.6 MG/DL (8.5-10.1); CARBON DIOXIDE LEVEL 35 MEQ/L (21-32); CHLORIDE LEVEL 99 MEQ/L (98-107); ETHYL ALCOHOL (ETHANOL) < 0.003 % (0.000-0.010); GLOMERULAR FILTRATION RATE > 60.0 (>60); GLUCOSE, FASTING 97 MG/DL (70-100); POTASSIUM SERUM 4.1 MEQ/L (3.5-5.1); SALICYLATE LEVEL < 1.7 MG/DL (5.0-30.0); SODIUM LEVEL 137 MEQ/L (136-145); TOTAL PROTEIN 7.2 GM/DL (6.4-8.2)
[2021-03-02 11:12] LABS: AMPHETAMINES LEVEL URINE NEGATIVE (NEGATIVE); BARBITURATES URINE NEGATIVE (NEGATIVE); BENZODIAZEPINES URINE NEGATIVE (NEGATIVE); CANNABINOIDS URINE POSITIVE (NEGATIVE); COCAINE METABOLITE URINE NEGATIVE (NEGATIVE); METHADONE URINE NEGATIVE (NEGATIVE); OPIATES URINE POSITIVE (NEGATIVE); PHENCYCLIDINE URINE NEGATIVE (NEGATIVE)
[2021-03-02 11:33] VITALS: BP 135/62
--- NOTE | 2021-03-02 13:32 | ECGEPIP ---
[facility] - ED Test Date: 2021-03-02 Pat Name: MARIAN SNOWDEN Department: Room: - Gender: Male Pyridine Operator: TC : 1990 Requested By: Sai Ivey Order Number: [id number] Reading MD: Sai Cazares Measurements Intervals [place] Rate: 74 P: 58 GA: 144 QRS: 52 QRSD: 82 T: 45 QT: 380 QTc: 421 Interpretive Statements Normal sinus rhythm SIMILAR TO 02/26/21 Electronically Signed on 03-02-2021 13:32:02 EDT by Sai Cazares
== END 2021-03-02 11:53 | disposition home or self-care (01) ==
LOC: M ED 08:19
DX: F15.10 Other stimulant abuse, uncomplicated (principal); T50.991A Poisoning by other drugs, medicaments and biological substances, accidental (unintentional), initial encounter; X58.XXXA Exposure to other specified factors, initial encounter; Y92.89 Other specified places as the place of occurrence of the external cause
CPT/HCPCS: 80048; 80076; 80143; 80307; 82077; 84443; 85025; 93005; 93041; 94760; 96374; 99285; J2310

== ENCOUNTER → 2021-04-18 | Outpatient (CLI) | payer OTHER, SELFPAY ==
[~2021-04-18] MED LIST changes: -OLAN10TA2 PO; +OLAN1TAB16; +OLAN1TAB20 PO; -OLAN5TAB
[2021-04-18 12:19] LABS: BASO % 0.3 % (0.0-1.0); EOS # 0.1 10^3/uL (0.0-0.5); EOS % 0.7 % (0.0-3.0); HEMATOCRIT 39.4 % (42.0-52.0); HEMOGLOBIN 13.8 g/dl (13.5-17.5); LYMPH # 0.8 10^3/uL (1.5-5.0); LYMPH % 9.2 % (24.0-44.0); MEAN CORPUSCULAR HEMOGLOBIN 32.6 pg (27.0-33.0); MEAN CORPUSCULAR VOLUME 93.1 fl (80.0-96.0); MONO # 0.6 10^3/uL (0.0-0.8); MONO % 6.8 % (2.0-8.0); NEUTROPHILS # 7.4 10^3/uL (1.5-8.5); NEUTROPHILS % 82.4 % (36.0-66.0); PLATELET COUNT, AUTOMATED 212 10^3/uL (150-450); RED BLOOD COUNT 4.23 10^6/uL (4.30-6.10); WHITE BLOOD COUNT 8.9 10^3/uL (4.0-10.0)
[2021-04-18 12:51] LABS: ALBUMIN 3.8 GM/DL (3.2-5.2); ALT/SGPT 147 U/L (12-78); BILIRUBIN,TOTAL 0.7 MG/DL (0.2-1.0); BLOOD UREA NITROGEN 17 MG/DL (7-18); CALCIUM LEVEL 9.1 MG/DL (8.5-10.1); CARBON DIOXIDE LEVEL 29 MEQ/L (21-32); CHLORIDE LEVEL 102 MEQ/L (98-107); CREATININE FOR GFR 0.79 MG/DL (0.70-1.30); GLOMERULAR FILTRATION RATE > 60.0 (>60); GLUCOSE, FASTING 133 MG/DL (70-100); POTASSIUM SERUM 3.9 MEQ/L (3.5-5.1); SODIUM LEVEL 137 MEQ/L (136-145); TOTAL PROTEIN 7.1 GM/DL (6.4-8.2)
[2021-04-18 13:18] LABS: HEPATITIS B SURFACE ANTIGEN NEGATIVE (NEGATIVE)
[2021-04-18 13:45] LABS: HEPATITIS B CORE ANTIBODY IGM NEGATIVE (NEGATIVE)
[2021-04-18 13:46] LABS: HIV 1&2 SCREEN CENTAUR NEGATIVE (NEGATIVE)
[2021-04-18 13:47] LABS: HEPATITIS A ANTIBODY IGM NEGATIVE (NEGATIVE)
[2021-04-18 14:10] LABS: HEPATITIS C VIRUS ABY INDEX > 11.0 INDEX (<0.8)
== END ==
LOC: M WUC 10:04
PROVIDERS: ATTEND Physician Assistant
DX: I88.9 Nonspecific lymphadenitis, unspecified (principal); F19.10 Other psychoactive substance abuse, uncomplicated; L03.90 Cellulitis, unspecified; Z11.3 Encounter for screening for infections with a predominantly sexual mode of transmission

== ENCOUNTER 2022-02-17 14:08 | Emergency (ER) | payer MEDICAID, OTHER ==
[~2022-02-17] VITALS: Ht 172.7 cm; Wt 65.9 kg
[2022-02-17 14:08] VITALS: BP 118/72
[~2022-02-17 14:08] MED LIST changes: -D31000TA2 PO; +OMEP-173 PO; -OMEP-218 PO; +VITA100093 PO
== END 2022-02-17 15:56 | disposition left against medical advice (07) ==
LOC: M ED 14:08
DX: Z53.29 Procedure and treatment not carried out because of patient's decision for other reasons (principal)

== ENCOUNTER 2022-06-21 09:03 | Emergency (ER) | payer OTHER ==
[~2022-06-21] VITALS: Ht 167.6 cm; Wt 59.1 kg
[2022-06-21] MEDS ORDERED: NS 1,000 ML IV ONE (09:15)
[2022-06-21] MEDS ORDERED: ONDANSETRON 4MG 2ML VIAL IV ONE (09:15)
[2022-06-21] MEDS ORDERED: SUBL300I (09:19)
[2022-06-21] MEDS ORDERED: ABIL1INJ2 (09:19)
[2022-06-21 10:09] LABS: BASO % 0.2 % (0.0-1.0); EOS # 0.1 10^3/uL (0.0-0.5); EOS % 0.9 % (0.0-3.0); HEMATOCRIT 41.2 % (42.0-52.0); HEMOGLOBIN 14.6 g/dl (13.5-17.5); LYMPH # 1.2 10^3/uL (1.5-5.0); LYMPH % 22.3 % (24.0-44.0); MEAN CORPUSCULAR HGB CONC 35.4 g/dl (32.0-36.5); MEAN CORPUSCULAR VOLUME 87.5 fl (80.0-96.0); MONO # 0.4 10^3/uL (0.0-0.8); MONO % 6.9 % (2.0-8.0); NEUTROPHILS # 3.7 10^3/uL (1.5-8.5); NEUTROPHILS % 69.5 % (36.0-66.0); PLATELET COUNT, AUTOMATED 248 10^3/uL (150-450); RED BLOOD COUNT 4.71 10^6/uL (4.30-6.10); WHITE BLOOD COUNT 5.3 10^3/uL (4.0-10.0)
[2022-06-21 10:28] LABS: HCG, SERUM QUALITATIVE NEGATIVE
[2022-06-21 10:36] LABS: RSV AMPLIFICATION NEGATIVE (NEGATIVE)
[2022-06-21 10:45] LABS: ACETAMINOPHEN LEVEL < 2.0 UG/ML (10.0-30.0); ALBUMIN 4.7 GM/DL (3.2-5.2); ALT/SGPT 108 U/L (12-78); BILIRUBIN,DIRECT 0.2 MG/DL (0.0-0.2); BILIRUBIN,TOTAL 0.6 MG/DL (0.2-1.0); BLOOD UREA NITROGEN 19 MG/DL (7-18); CALCIUM LEVEL 10.1 MG/DL (8.5-10.1); CARBON DIOXIDE LEVEL 29 MEQ/L (21-32); CHLORIDE LEVEL 100 MEQ/L (98-107); ETHYL ALCOHOL (ETHANOL) < 0.003 % (0.000-0.010); GLOMERULAR FILTRATION RATE > 60.0 (>60); GLUCOSE, FASTING 90 MG/DL (70-100); POTASSIUM SERUM 3.3 MEQ/L (3.5-5.1); SALICYLATE LEVEL < 1.7 MG/DL (5.0-30.0); SODIUM LEVEL 136 MEQ/L (136-145); TOTAL PROTEIN 8.2 GM/DL (6.4-8.2)
[2022-06-21 13:02] LABS: AMPHETAMINES LEVEL URINE POSITIVE (NEGATIVE); BARBITURATES URINE NEGATIVE (NEGATIVE); BENZODIAZEPINES URINE NEGATIVE (NEGATIVE); CANNABINOIDS URINE POSITIVE (NEGATIVE); COCAINE METABOLITE URINE POSITIVE (NEGATIVE); METHADONE URINE NEGATIVE (NEGATIVE); OPIATES URINE NEGATIVE (NEGATIVE); PHENCYCLIDINE URINE NEGATIVE (NEGATIVE)
[2022-06-21] MEDS ORDERED: POTASSIUM CHLORIDE 10MEQ SR TABLET PO ONE (13:35)
[2022-06-21 14:33] VITALS: BP 132/88
== END 2022-06-21 14:53 | disposition home or self-care (01) ==
LOC: EDBD 09:03 → M ED 09:03
DX: T50.901A Poisoning by unspecified drugs, medicaments and biological substances, accidental (unintentional), initial encounter (principal); Y92.89 Other specified places as the place of occurrence of the external cause; F15.11 Other stimulant abuse, in remission; B19.20 Unspecified viral hepatitis C without hepatic coma; F32.A Depression, unspecified; F41.9 Anxiety disorder, unspecified; Z79.899 Other long term (current) drug therapy; F17.200 Nicotine dependence, unspecified, uncomplicated
CPT/HCPCS: 36415; 80048; 80076; 80143; 80307; 82077; 82550; 84443; 84703; 85025; 87631; 93005; 93041; 94760; 96374; 99285; J2405

== ENCOUNTER 2022-09-19 17:03 | Inpatient (IN) | payer MEDICAID, OTHER ==
[~2022-09-19] VITALS: Ht 177.8 cm; Wt 69.9 kg
[~2022-09-19 17:03] MED LIST changes: +ABIL1INJ2; +SUBL300I
[2022-09-19] MEDS ORDERED: NALOXONE INJ 0.4MG/1ML VIAL (J2310 PER 1MG) IV STA (17:15)
[2022-09-19 17:27] LABS: BASO % 0.2 % (0.0-1.0); EOS % 0.2 % (0.0-3.0); HEMATOCRIT 35.8 % (42.0-52.0); LYMPH # 1.1 10^3/uL (1.5-5.0); LYMPH % 19.1 % (24.0-44.0); MEAN CORPUSCULAR HEMOGLOBIN 31.7 pg (27.0-33.0); MEAN CORPUSCULAR HGB CONC 36.3 g/dl (32.0-36.5); MEAN CORPUSCULAR VOLUME 87.3 fl (80.0-96.0); MONO # 0.6 10^3/uL (0.0-0.8); MONO % 10.2 % (2.0-8.0); NEUTROPHILS # 3.9 10^3/uL (1.5-8.5); NEUTROPHILS % 69.9 % (36.0-66.0); PLATELET COUNT, AUTOMATED 221 10^3/uL (150-450); WHITE BLOOD COUNT 5.6 10^3/uL (4.0-10.0)
[2022-09-19 17:29] LABS: VENOUS BASE EXCESS 4.7 (-2.0-2.0); VENOUS HCO3 29.9 MEQ/L (23.0-27.0); VENOUS O2 SATURATION 91.5 % (60.0-80.0); VENOUS PARTIAL PRESSURE CO2 46.5 mmHg (38.0-50.0); VENOUS PARTIAL PRESSURE O2 59.8 mmHg (30.0-50.0); VENOUS PH 7.426 UNITS (7.330-7.430); VENOUS STANDARD HCO3 28.5 MEQ/L; VENOUS TOTAL CO2 31.3 MEQ/L (24.0-28.0)
[2022-09-19 18:14] LABS: ACETAMINOPHEN LEVEL < 2.0 UG/ML (10.0-20.0); ALBUMIN 3.8 G/DL (3.2-5.2); ALT/SGPT 54 U/L (7.0-40); BILIRUBIN,DIRECT 0.3 MG/DL (<0.4); BILIRUBIN,TOTAL 0.6 MG/DL (0.3-1.2); BLOOD UREA NITROGEN 11 MG/DL (9-23); CALCIUM LEVEL 8.7 MG/DL (8.5-10.1); CARBON DIOXIDE LEVEL 31 MMOL/L (20-31); CHLORIDE LEVEL 98 MMOL/L (98-107); CPK CREATINE PHOSPHOKINASE 130 U/L (46-171); CREATININE FOR GFR 0.69 MG/DL (0.70-1.30); ETHYL ALCOHOL (ETHANOL) 0.004 % (0.000-0.010); GLOMERULAR FILTRATION RATE > 60.0 (>60); GLUCOSE, FASTING 134 MG/DL (60-100); POTASSIUM SERUM 3.1 MMOL/L (3.5-5.1); SALICYLATE LEVEL < 3.0 MG/DL (<30); SODIUM LEVEL 138 MMOL/L (136-145); THYROID STIMULATING HORMONE 1.347 uIU/ML (0.55-4.78); TOTAL PROTEIN 6.8 G/DL (5.7-8.2)
[2022-09-19 19:10] LABS: RSV AMPLIFICATION NEGATIVE (NEGATIVE)
[2022-09-19 19:18] LABS: AMPHETAMINES LEVEL URINE POSITIVE (NEGATIVE); BARBITURATES URINE NEGATIVE (NEGATIVE); BENZODIAZEPINES URINE NEGATIVE (NEGATIVE); CANNABINOIDS URINE POSITIVE (NEGATIVE); COCAINE METABOLITE URINE NEGATIVE (NEGATIVE); METHADONE URINE NEGATIVE (NEGATIVE); OPIATES URINE POSITIVE (NEGATIVE); PHENCYCLIDINE URINE NEGATIVE (NEGATIVE)
[2022-09-20] MEDS ORDERED: MAALOX 30 ML SUSP *UDC PO PRN (03:55)
[2022-09-20] MEDS ORDERED: ACETAMINOPHEN TAB 650MG DOSE (2X325MG) PO PRN (03:55)
[2022-09-20] MEDS ORDERED: MOM 30ML SUSPENSION UDC PO PRN (03:55)
[2022-09-20] MEDS ORDERED: traZODone 50 MG TAB PO PRN (03:55)
[2022-09-20] MEDS: DOXYCYCLINE HYCLATE 100MG TABLET PO SCH ×3 (04:16→21:41)
[2022-09-20] MEDS ORDERED: HOME MED LIST COMPLETE! XX SCH (05:00)
[2022-09-20 06:29] VITALS: BP 129/78
[2022-09-20] MEDS: buPROPion **XL** TABLET 150MG (WELLBUTRIN XL) PO SCH (09:19)
[2022-09-20] MEDS ORDERED: POTASSIUM CHLORIDE 10MEQ SR TABLET PO ONE (13:00)
[2022-09-20 13:05] LABS: BLOOD UREA NITROGEN 10 MG/DL (9-23); CALCIUM LEVEL 8.8 MG/DL (8.5-10.1); CARBON DIOXIDE LEVEL 29 MMOL/L (20-31); CHLORIDE LEVEL 103 MMOL/L (98-107); CREATININE FOR GFR 0.63 MG/DL (0.70-1.30); GLOMERULAR FILTRATION RATE > 60.0 (>60); GLUCOSE, FASTING 119 MG/DL (60-100); POTASSIUM SERUM 3.9 MMOL/L (3.5-5.1); SODIUM LEVEL 141 MMOL/L (136-145)
[2022-09-20 16:21] VITALS: BP 100/64
[2022-09-21 06:23] VITALS: BP 106/58
[2022-09-21] MEDS: DOXYCYCLINE HYCLATE 100MG TABLET PO SCH (08:03)
[2022-09-21] MEDS: buPROPion **XL** TABLET 150MG (WELLBUTRIN XL) PO SCH (08:03)
[2022-09-21] MEDS ORDERED: NALTREXONE 50 MG TAB PO SCH (09:00)
[2022-09-21 11:02] VITALS: BP 122/74
[2022-09-21] MEDS: PROPRANOLOL 10 MG TAB PO SCH ×2 (11:02→16:00)
[2022-09-21] MEDS ORDERED: OLANZapine INTRAMUSCULAR 10MG VIAL IM STA ×2 (11:18→14:50)
[2022-09-21] MEDS ORDERED: LORazepam 2 MG/ML VIAL IM STA (11:49)
[2022-09-21] MEDS ORDERED: OLANZapine ORAL DISINTEGRATING TAB 5MG PO PRN (11:50)
[2022-09-21] MEDS ORDERED: LORazepam 2 MG TAB PO PRN ×2 (12:30→16:00)
[2022-09-21] MEDS ORDERED: HALOPERIDOL 5MG/ML VIAL (J1630 PER 1) IM STA (13:01)
[2022-09-21] MEDS ORDERED: diphenhydrAMINE 50MG/ML VIAL IM STA (13:01)
[2022-09-21] MEDS ORDERED: METHADONE 10MG TAB PO STA (13:37)
[2022-09-21] MEDS ORDERED: MORPHINE 10 MG/ML 1ML VIAL IM ONE (13:50)
[2022-09-21] MEDS ORDERED: MORPHINE 10 MG/ML 1ML VIAL IM STA ×2 (14:00→16:04)
[2022-09-21] MEDS ORDERED: MORPHINE 2 MG/ML 1ML VIAL IM STA (16:01)
[2022-09-21 17:00] VITALS: BP 160/100
[2022-09-21] MEDS ORDERED: cloNIDine 0.05MG 1/2 TABLET PO SCH (21:00)
== END 2022-09-21 17:20 | disposition short-term general hospital (02) | DRG 754 ==
LOC: EDBD 17:03 → M ED 17:03 → M ED INP 09-20 03:51 → M PSY 09-20 04:33
PROVIDERS: ADMIT Student in an Organized Health Care Education/Training Program; ATTEND Student in an Organized Health Care Education/Training Program
DX: F32.A Depression, unspecified (principal); F10.931 Alcohol use, unspecified with withdrawal delirium; L02.416 Cutaneous abscess of left lower limb; T14.91XA Suicide attempt, initial encounter; T43.592A Poisoning by other antipsychotics and neuroleptics, intentional self-harm, initial encounter; Z56.0 Unemployment, unspecified; Z65.3 Problems related to other legal circumstances; F41.1 Generalized anxiety disorder; F17.210 Nicotine dependence, cigarettes, uncomplicated; Z20.822 Contact with and (suspected) exposure to COVID-19; E87.6 Hypokalemia; Z71.6 Tobacco abuse counseling; F11.90 Opioid use, unspecified, uncomplicated; F15.90 Other stimulant use, unspecified, uncomplicated

== ENCOUNTER 2022-09-21 17:26 | Inpatient (IN) | payer MEDICAID, OTHER ==
[2022-09-21] VITALS (37 sets, daily range): BP systolic 122–165; BP diastolic 65–103
[~2022-09-21] VITALS: Ht 172.7 cm; Wt 67.5 kg
[2022-09-21] MEDS ORDERED: LORazepam 2 MG/ML VIAL As Ordered ONE (17:30)
[2022-09-21] MEDS ORDERED: LORazepam 2 MG/ML VIAL IV STA ×3 (17:33→17:40)
[2022-09-21] MEDS ORDERED: NS 1,000 ML IV ONE (17:35)
[2022-09-21] MEDS ORDERED: diphenhydrAMINE 50MG/ML VIAL IV STA (17:44)
[2022-09-21] MEDS ORDERED: diphenhydrAMINE 50MG/ML VIAL As Ordered ONE (17:49)
[2022-09-21] MEDS ORDERED: dexmedeTOMidine 200 MCG in IV 1 EA IV ONE (18:00)
[2022-09-21] MEDS ORDERED: fentaNYL 100 MCG/2 ML INJECTION IV ONE ×2 (18:05→18:30)
[2022-09-21] MEDS ORDERED: fentaNYL 100 MCG/2 ML INJECTION As Ordered ONE (18:06)
[2022-09-21] MEDS: dexmedeTOMidine 200 MCG in IV 1 EA IV SCH ×3 (18:10→23:57)
[2022-09-21] MEDS: NS 1,000 ML IV SCH (18:35)
[2022-09-21] MEDS ORDERED: PROPOFOL 1,000 MG/100 ML VIAL As Ordered ONE (18:55)
[2022-09-21 19:02] LABS: BASO % 0.2 % (0.0-1.0); EOS % 0.1 % (0.0-3.0); HEMATOCRIT 39.3 % (42.0-52.0); HEMOGLOBIN 13.9 g/dl (13.5-17.5); LYMPH # 1.1 10^3/uL (1.5-5.0); LYMPH % 12.1 % (24.0-44.0); MEAN CORPUSCULAR HEMOGLOBIN 30.8 pg (27.0-33.0); MEAN CORPUSCULAR HGB CONC 35.4 g/dl (32.0-36.5); MEAN CORPUSCULAR VOLUME 87.1 fl (80.0-96.0); MONO # 0.6 10^3/uL (0.0-0.8); MONO % 6.1 % (2.0-8.0); NEUTROPHILS # 7.4 10^3/uL (1.5-8.5); NEUTROPHILS % 81.3 % (36.0-66.0); PLATELET COUNT, AUTOMATED 299 10^3/uL (150-450); RED BLOOD COUNT 4.51 10^6/uL (4.30-6.10); WHITE BLOOD COUNT 9.1 10^3/uL (4.0-10.0)
[2022-09-21] MEDS ORDERED: ETOMIDATE INJ 20MG/10ML VIAL IV ONE (19:05)
[2022-09-21] MEDS ORDERED: ROCURONIUM BROMIDE 50 MG/5 ML VIAL IV ONE (19:05)
[2022-09-21] MEDS ORDERED: VANCOMYCIN HCL 750 MG, VIAL MATE ADAPTER 1 EACH in NS 250 ML IV SCH (19:05)
[2022-09-21 19:09] LABS: ALKALINE PHOSPHATASE 91 U/L (46-116); ALT/SGPT 55 U/L (7.0-40); AST/SGOT 70 U/L (<34); BLOOD UREA NITROGEN 9 MG/DL (9-23); CALCIUM LEVEL 9.2 MG/DL (8.5-10.1); CARBON DIOXIDE LEVEL 25 MMOL/L (20-31); CHLORIDE LEVEL 104 MMOL/L (98-107); CK-MB VALUE MASS 2.7 NG/ML (<3.6); CREATININE FOR GFR 0.72 MG/DL (0.70-1.30); GLOMERULAR FILTRATION RATE > 60.0 (>60); GLUCOSE, FASTING 102 MG/DL (60-100); POTASSIUM SERUM 4.3 MMOL/L (3.5-5.1); SODIUM LEVEL 143 MMOL/L (136-145); TOTAL PROTEIN 7.1 G/DL (5.7-8.2)
[2022-09-21] MEDS ORDERED: MIDAZOLAM 5MG/ML 1ML VIAL (J2250 PER 1MG) IV PRN (19:15)
[2022-09-21] MEDS: propofoL 1,000 MG in IV 1 EA IV SCH ×2 (19:25→21:27)
[2022-09-21] MEDS ORDERED: propofoL 200 MG/20 ML VIAL IV ONE (19:30)
[2022-09-21 19:46] LABS: CPK CREATINE PHOSPHOKINASE 1850 U/L (46-171); MB/CK RELATIVE INDEX 0.14 (< OR =4)
[2022-09-21] MEDS ORDERED: VANCOMYCIN HCL 750 MG, VIAL MATE ADAPTER 1 EACH in D5W 250 ML IV ONE ×2 (20:00→21:00)
[2022-09-21 20:04] LABS: HEPATITIS B CORE ANTIBODY IGM NEGATIVE (NEGATIVE); HEPATITIS B SURFACE ANTIBODY POSITIVE (POSITIVE); HEPATITIS B SURFACE ANTIGEN NEGATIVE (NEGATIVE); HIV SCREEN CENTAUR SOURCE NEGATIVE (NEGATIVE)
[2022-09-21 20:05] LABS: ABG HCO3 25.8 MEQ/L (22.0-26.0); ABG O2 SATURATION 99.2 % (95.0-99.0); ABG PARTIAL PRESSURE CO2 37.3 mmHg (35.0-45.0); ABG PARTIAL PRESSURE O2 237.2 mmHg (75.0-100.0); ABG STANDARD HCO3 26.3 MEQ/L (22.0-26.0); ABG TOTAL CO2 26.9 MEQ/L (22.0-29.0); ABG pH (ARTERIAL) 7.457 UNITS (7.350-7.450)
[2022-09-21] MEDS: PIPERACILLIN/TAZOBACTAM SOD 4.5 GM in D5W MINI-BAG PLUS 50 ML IV SCH (20:25)
[2022-09-22] VITALS (40 sets, daily range): BP systolic 101–129; BP diastolic 58–83
[2022-09-22] MEDS: PIPERACILLIN/TAZOBACTAM SOD 4.5 GM in D5W MINI-BAG PLUS 50 ML IV SCH ×4 (01:01→18:35)
[2022-09-22] MEDS: propofoL 1,000 MG in IV 1 EA IV SCH ×5 (01:33→22:11)
[2022-09-22] MEDS: dexmedeTOMidine 200 MCG in IV 1 EA IV SCH ×2 (02:47→23:02)
[2022-09-22] MEDS: NS 1,000 ML IV SCH ×3 (03:37→20:34)
[2022-09-22] MEDS: VANCOMYCIN HCL 1,000 MG, VIAL MATE ADAPTER 1 EACH in D5W 250 ML IV SCH ×3 (05:35→21:57)
[2022-09-22 06:23] LABS: BASO % 0.4 % (0.0-1.0); EOS % 1.7 % (0.0-3.0); HEMATOCRIT 35.6 % (42.0-52.0); HEMOGLOBIN 12.2 g/dl (13.5-17.5); LYMPH % 33.8 % (24.0-44.0); MEAN CORPUSCULAR HGB CONC 34.3 g/dl (32.0-36.5); MEAN CORPUSCULAR VOLUME 90.4 fl (80.0-96.0); MONO % 10.6 % (2.0-8.0); NEUTROPHILS % 53.3 % (36.0-66.0); PLATELET COUNT, AUTOMATED 223 10^3/uL (150-450); RED BLOOD COUNT 3.94 10^6/uL (4.30-6.10); WHITE BLOOD COUNT 5.3 10^3/uL (4.0-10.0)
[2022-09-22 06:24] LABS: EOS # 0.1 10^3/uL (0.0-0.5); LYMPH # 1.8 10^3/uL (1.5-5.0); MONO # 0.6 10^3/uL (0.0-0.8); NEUTROPHILS # 2.8 10^3/uL (1.5-8.5)
[2022-09-22 06:55] LABS: ALBUMIN 3.4 G/DL (3.2-5.2); ALKALINE PHOSPHATASE 74 U/L (46-116); ALT/SGPT 38 U/L (7.0-40); AST/SGOT 42 U/L (<34); BILIRUBIN,TOTAL 0.6 MG/DL (0.3-1.2); BLOOD UREA NITROGEN 6 MG/DL (9-23); CALCIUM LEVEL 8.3 MG/DL (8.5-10.1); CARBON DIOXIDE LEVEL 25 MMOL/L (20-31); CHLORIDE LEVEL 110 MMOL/L (98-107); CREATININE FOR GFR 0.74 MG/DL (0.70-1.30); GLOMERULAR FILTRATION RATE > 60.0 (>60); GLUCOSE, FASTING 97 MG/DL (60-100); POTASSIUM SERUM 3.4 MMOL/L (3.5-5.1); SODIUM LEVEL 145 MMOL/L (136-145); TOTAL PROTEIN 6.2 G/DL (5.7-8.2)
[2022-09-22] MEDS: ENOXAPARIN 40MG/0.4ML SYRINGE (J1650 PER 10MG) SC SCH (09:33)
[2022-09-22] MEDS: KCL 10MEQ/100ML SWI (KRUN) 10 MEQ in IV 1 EA IV SCH ×2 (10:00→11:17)
[2022-09-22] MEDS ORDERED: DEXTROSE 50% 50 ML SYRINGE IV PRN (10:25)
[2022-09-22] MEDS ORDERED: GLUCOSE 4GM CHEW TABLET PO PRN (10:25)
[2022-09-22] MEDS ORDERED: GLUCAGON INJ 1MG VIAL SC PRN (10:25)
[2022-09-22] MEDS: PANTOPRAZOLE 40MG VIAL IV SCH (10:32)
[2022-09-22 11:00] LABS: CPK CREATINE PHOSPHOKINASE 1120 U/L (46-171)
[2022-09-23] VITALS (22 sets, daily range): BP systolic 100–143; BP diastolic 55–98; O2SAT 94
[2022-09-23] MEDS: PIPERACILLIN/TAZOBACTAM SOD 4.5 GM in D5W MINI-BAG PLUS 50 ML IV SCH ×4 (00:54→18:13)
[2022-09-23] MEDS: propofoL 1,000 MG in IV 1 EA IV SCH ×3 (00:56→08:41)
[2022-09-23 04:58] LABS: HEMATOCRIT 32.9 % (42.0-52.0); MEAN CORPUSCULAR HEMOGLOBIN 30.7 pg (27.0-33.0); MEAN CORPUSCULAR HGB CONC 33.4 g/dl (32.0-36.5); MEAN CORPUSCULAR VOLUME 91.9 fl (80.0-96.0); PLATELET COUNT, AUTOMATED 204 10^3/uL (150-450); RED BLOOD COUNT 3.58 10^6/uL (4.30-6.10); WHITE BLOOD COUNT 4.8 10^3/uL (4.0-10.0)
[2022-09-23 05:11] LABS: CARBON DIOXIDE LEVEL 26 MMOL/L (20-31); CHLORIDE LEVEL 112 MMOL/L (98-107); POTASSIUM SERUM 3.2 MMOL/L (3.5-5.1); SODIUM LEVEL 146 MMOL/L (136-145)
[2022-09-23 05:17] LABS: BLOOD UREA NITROGEN 8 MG/DL (9-23); GLUCOSE, FASTING 100 MG/DL (60-100); MAGNESIUM LEVEL 1.8 MG/DL (1.8-2.4)
[2022-09-23 05:19] LABS: GLOMERULAR FILTRATION RATE > 60.0 (>60)
[2022-09-23] MEDS: VANCOMYCIN HCL 1,000 MG, VIAL MATE ADAPTER 1 EACH in D5W 250 ML IV SCH ×2 (05:39→19:34)
[2022-09-23] MEDS: dexmedeTOMidine 200 MCG in IV 1 EA IV SCH ×2 (05:45→11:06)
[2022-09-23] MEDS ORDERED: POTASSIUM CHLORIDE 10% LIQ 20 MEQ/15 ML UDC NG ONE (07:00)
[2022-09-23] MEDS ORDERED: POTASSIUM CHLORIDE 10% LIQ 20 MEQ/15 ML UDC TF ONE (07:00)
[2022-09-23] MEDS ORDERED: NS 1,000 ML IV ONE (07:10)
[2022-09-23] MEDS: PANTOPRAZOLE 40MG VIAL IV SCH (08:27)
[2022-09-23] MEDS: ENOXAPARIN 40MG/0.4ML SYRINGE (J1650 PER 10MG) SC SCH (08:27)
[2022-09-23] MEDS: KCL 10MEQ/100ML SWI (KRUN) 10 MEQ in IV 1 EA IV SCH ×4 (08:27→11:31)
[2022-09-23] MEDS: NS 1,000 ML IV SCH (15:54)
[2022-09-23] MEDS ORDERED: diphenhydrAMINE 50MG/ML VIAL IV PRN (16:15)
[2022-09-23] MEDS ORDERED: HALOPERIDOL 5MG/ML VIAL (J1630 PER 1) IV PRN (16:15)
[2022-09-24] MEDS: PIPERACILLIN/TAZOBACTAM SOD 4.5 GM in D5W MINI-BAG PLUS 50 ML IV SCH ×2 (01:03→06:00)
[2022-09-24 04:00] VITALS: BP 126/78
[2022-09-24 06:00] VITALS: BP 118/73
[2022-09-24 07:44] LABS: HEMATOCRIT 32.6 % (42.0-52.0); HEMOGLOBIN 11.3 g/dl (13.5-17.5); MEAN CORPUSCULAR HEMOGLOBIN 31.5 pg (27.0-33.0); MEAN CORPUSCULAR HGB CONC 34.7 g/dl (32.0-36.5); MEAN CORPUSCULAR VOLUME 90.8 fl (80.0-96.0); PLATELET COUNT, AUTOMATED 214 10^3/uL (150-450); RED BLOOD COUNT 3.59 10^6/uL (4.30-6.10); WHITE BLOOD COUNT 3.9 10^3/uL (4.0-10.0)
[2022-09-24] MEDS ORDERED: METAMUCIL (PSYLLIUM) PACKET PO PRN (07:50)
[2022-09-24 08:00] VITALS: BP 122/84
[2022-09-24 08:10] LABS: CHLORIDE LEVEL 109 MMOL/L (98-107); POTASSIUM SERUM 3.3 MMOL/L (3.5-5.1); SODIUM LEVEL 145 MMOL/L (136-145)
[2022-09-24 08:11] LABS: CARBON DIOXIDE LEVEL 27 MMOL/L (20-31)
[2022-09-24 08:16] LABS: BLOOD UREA NITROGEN 5 MG/DL (9-23)
[2022-09-24 08:17] LABS: CALCIUM LEVEL 7.7 MG/DL (8.5-10.1); GLUCOSE, FASTING 102 MG/DL (60-100); MAGNESIUM LEVEL 1.6 MG/DL (1.8-2.4)
[2022-09-24 08:18] LABS: VANCOMYCIN LEVEL TROUGH 8.1 UG/ML (10.0-20.0)
[2022-09-24 08:19] LABS: CREATININE FOR GFR 0.91 MG/DL (0.70-1.30); GLOMERULAR FILTRATION RATE > 60.0 (>60)
[2022-09-24] MEDS: PANTOPRAZOLE 40MG VIAL IV SCH (08:39)
[2022-09-24] MEDS: VANCOMYCIN HCL 1,000 MG, VIAL MATE ADAPTER 1 EACH in D5W 250 ML IV SCH (08:40)
[2022-09-24] MEDS: ENOXAPARIN 40MG/0.4ML SYRINGE (J1650 PER 10MG) SC SCH (08:40)
[2022-09-24] MEDS ORDERED: MAG SULF 1GM/100ML (MAG RUN) 1 GM in IV 1 EA IV ONE (09:00)
[2022-09-24] MEDS ORDERED: DOCUSATE SODIUM 100MG CAPSULE PO SCH (09:00)
[2022-09-24] MEDS ORDERED: POTASSIUM CHLORIDE 10MEQ SR TABLET PO ONE (10:00)
[2022-09-24] MEDS: BACTRIM 160MG/800MG DS TAB PO SCH ×2 (11:32→20:14)
[2022-09-24] MEDS ORDERED: VANCOMYCIN HCL 750 MG, VIAL MATE ADAPTER 1 EACH in D5W 250 ML IV SCH (12:00)
[2022-09-24 14:00] VITALS: BP 108/60
[2022-09-24] MEDS ORDERED: BACTDSTA PO (14:04)
[2022-09-24 21:16] VITALS: BP 139/96
[2022-09-24] MEDS ORDERED: BACT800T5 PO (21:46)
[2022-09-25] MEDS ORDERED: LevoFLOXacin 500 MG TABLET PO SCH (06:00)
== END 2022-09-24 21:03 | DRG 773 ==
LOC: M ICU 17:26
PROVIDERS: ADMIT Internal Medicine Critical Care Medicine; ATTEND Internal Medicine
PROC: 0BH17EZ Insertion of Endotracheal Airway into Trachea, Via Natural or Artificial Opening (ICD-10-PCS; principal; 2022-09-21)
PROC: 5A1945Z Respiratory Ventilation, 24-96 Consecutive Hours (ICD-10-PCS; 2022-09-21)
PROC: 0HBJXZZ Excision of Left Upper Leg Skin, External Approach (ICD-10-PCS; 2022-09-23)
DX: F10.231 Alcohol dependence with withdrawal delirium (principal); N17.9 Acute kidney failure, unspecified; L02.416 Cutaneous abscess of left lower limb; F11.90 Opioid use, unspecified, uncomplicated; E87.20 Acidosis, unspecified; M62.82 Rhabdomyolysis; L03.115 Cellulitis of right lower limb; Z78.1 Physical restraint status; L03.116 Cellulitis of left lower limb; E83.42 Hypomagnesemia; E87.6 Hypokalemia; F41.1 Generalized anxiety disorder; F17.210 Nicotine dependence, cigarettes, uncomplicated; E86.0 Dehydration; K59.00 Constipation, unspecified; R74.01 Elevation of levels of liver transaminase levels

== ENCOUNTER 2022-09-24 20:22 | Inpatient (IN) | payer MEDICAID ==
[~2022-09-24] VITALS: Ht 182.9 cm; Wt 150.0 kg
[~2022-09-24 20:22] MED LIST changes: +BACTDSTA PO
[2022-09-24] MEDS ORDERED: MAALOX 30 ML SUSP *UDC PO PRN (20:25)
[2022-09-24] MEDS ORDERED: ACETAMINOPHEN TAB 650MG DOSE (2X325MG) PO PRN (20:25)
[2022-09-24] MEDS ORDERED: MOM 30ML SUSPENSION UDC PO PRN (20:25)
[2022-09-24] MEDS ORDERED: cloNIDine 0.05MG 1/2 TABLET PO PRN (20:25)
[2022-09-24] MEDS ORDERED: BACT800T5 PO (21:46)
[2022-09-24 21:49] VITALS: BP 139/96
[2022-09-24] MEDS ORDERED: HOME MED LIST COMPLETE! XX SCH (21:50)
[2022-09-24] MEDS: PROPRANOLOL 10 MG TAB PO SCH (22:12)
[2022-09-25 06:29] VITALS: BP 130/7
[2022-09-25] MEDS ORDERED: buPROPion **XL** TABLET 150MG (WELLBUTRIN XL) PO SCH (09:00)
[2022-09-25] MEDS ORDERED: DOCUSATE SODIUM 100MG CAPSULE PO SCH (09:00)
[2022-09-25] MEDS: BACTRIM 160MG/800MG DS TAB PO SCH ×2 (09:59→20:18)
[2022-09-25] MEDS: PROPRANOLOL 10 MG TAB PO SCH ×3 (10:00→21:15)
[2022-09-25 10:13] LABS: MAGNESIUM LEVEL 1.9 MG/DL (1.8-2.4)
[2022-09-25 10:15] LABS: BLOOD UREA NITROGEN 5 MG/DL (9-23); CALCIUM LEVEL 8.4 MG/DL (8.5-10.1); CARBON DIOXIDE LEVEL 28 MMOL/L (20-31); CHLORIDE LEVEL 106 MMOL/L (98-107); CREATININE FOR GFR 0.85 MG/DL (0.70-1.30); GLOMERULAR FILTRATION RATE > 60.0 (>60); GLUCOSE, FASTING 130 MG/DL (60-100); POTASSIUM SERUM 3.5 MMOL/L (3.5-5.1); SODIUM LEVEL 142 MMOL/L (136-145)
[2022-09-25] MEDS ORDERED: POTASSIUM CHLORIDE 10MEQ SR TABLET PO ONE (11:00)
[2022-09-25] MEDS ORDERED: SENOKOT S TAB PO PRN (13:05)
[2022-09-25 18:10] VITALS: BP 134/90
[2022-09-25] MEDS: traZODone 50 MG TAB PO PRN ×2 (20:18)
[2022-09-26 06:20] VITALS: BP 130/61
[2022-09-26] MEDS ORDERED: ARIPiprazole MONOHYDRATE 400 MG INJ (ABILIFY)(FREE PSY INPT ONLY) IM ONE (08:00)
[2022-09-26 08:12] VITALS: BP 130/61
[2022-09-26] MEDS: BACTRIM 160MG/800MG DS TAB PO SCH (08:12)
[2022-09-26] MEDS: PROPRANOLOL 10 MG TAB PO SCH (08:12)
[2022-09-26] MEDS ORDERED: ABIL1TAB11 PO (10:42)
[2022-09-26] MEDS ORDERED: PROP10TA56 PO (10:42)
[2022-09-26] MEDS ORDERED: TRAZ-252 PO (10:42)
== END 2022-09-26 14:50 | disposition home or self-care (01) | DRG 756 ==
LOC: M PSY 20:36
PROVIDERS: ADMIT Student in an Organized Health Care Education/Training Program; ATTEND Student in an Organized Health Care Education/Training Program
DX: F41.1 Generalized anxiety disorder (principal); F31.9 Bipolar disorder, unspecified; F17.200 Nicotine dependence, unspecified, uncomplicated; F15.90 Other stimulant use, unspecified, uncomplicated; F11.90 Opioid use, unspecified, uncomplicated; F10.90 Alcohol use, unspecified, uncomplicated; Z91.51 Personal history of suicidal behavior; K59.00 Constipation, unspecified; M25.541 Pain in joints of right hand; Z79.899 Other long term (current) drug therapy

== ENCOUNTER 2022-12-27 03:31 | Emergency (ER) | payer MEDICAID, OTHER ==
[~2022-12-27 03:31] MED LIST changes: +ABIL1TAB11 PO; +BACT800T5 PO; +PROP10TA56 PO; +TRAZ-252 PO
[2022-12-27 03:46] VITALS: BP 143/102
[2022-12-27] MEDS ORDERED: NS 1,000 ML IV ONE (03:50)
== END 2022-12-27 04:15 | disposition left against medical advice (07) ==
LOC: M ED 03:31 → EDBD 03:31 → M ED 04:15
DX: R51.9 Headache, unspecified (principal); Z53.20 Procedure and treatment not carried out because of patient's decision for unspecified reasons; G47.00 Insomnia, unspecified; F41.9 Anxiety disorder, unspecified; F19.10 Other psychoactive substance abuse, uncomplicated; Z79.899 Other long term (current) drug therapy

== ENCOUNTER 2023-01-12 21:15 | Emergency (ER) | payer OTHER ==
[~2023-01-12] VITALS: Ht 172.7 cm; Wt 64.1 kg
[2023-01-12 21:15] VITALS: BP 125/82
[2023-01-12] MEDS ORDERED: BOOSTRIX/ADACEL VACCINE (DIPHTH/PERTUSS/ACELL/TETANUS) 0.5ML SYR IM ONE (23:10)
[2023-01-12] MEDS ORDERED: LIDOCAINE W/EPINEPHRINE 1% 20ML VIAL SC ONE (23:10)
[2023-01-12] MEDS ORDERED: DOXYCYCLINE HYCLATE 100MG TABLET PO ONE (23:35)
[2023-01-13] MEDS ORDERED: DOXY-443 PO
== END 2023-01-13 03:30 | disposition home or self-care (01) ==
LOC: M ED 21:15
DX: S51.812A Laceration without foreign body of left forearm, initial encounter (principal); W26.8XXA Contact with other sharp object(s), not elsewhere classified, initial encounter; Y92.009 Unspecified place in unspecified non-institutional (private) residence as the place of occurrence of the external cause; Y93.89 Activity, other specified; Y99.8 Other external cause status

== ENCOUNTER → 2023-04-20 | Outpatient (REF) | payer OTHER ==
[~2023-04-20] MED LIST changes: +DOXY-443 PO
[2023-04-20 19:33] LABS: HEMOGLOBIN A1c 4.6 % (4.0-6.0)
[2023-04-20 19:34] LABS: BASO % 0.6 % (0.0-1.0); EOS # 0.1 10^3/uL (0.0-0.5); EOS % 2.6 % (0.0-3.0); LYMPH # 1.6 10^3/uL (1.5-5.0); LYMPH % 33.5 % (24.0-44.0); MEAN CORPUSCULAR HEMOGLOBIN 30.8 pg (27.0-33.0); MEAN CORPUSCULAR VOLUME 88.1 fl (80.0-96.0); MONO # 0.5 10^3/uL (0.0-0.8); MONO % 9.7 % (2.0-8.0); NEUTROPHILS # 2.5 10^3/uL (1.5-8.5); NEUTROPHILS % 53.4 % (36.0-66.0); PLATELET COUNT, AUTOMATED 236 10^3/uL (150-450); RED BLOOD COUNT 4.54 10^6/uL (4.30-6.10); WHITE BLOOD COUNT 4.6 10^3/uL (4.0-10.0)
[2023-04-20 20:15] LABS: HEPATITIS B SURFACE ANTIBODY POSITIVE (POSITIVE); TOTAL 25(OH) VITAMIN D 27.3 NG/ML (20.0-100.0)
[2023-04-20 20:17] LABS: ALKALINE PHOSPHATASE 81 U/L (46-116); ALT/SGPT 68 U/L (7.0-40); AST/SGOT 31 U/L (<34); BILIRUBIN,TOTAL 0.5 MG/DL (0.3-1.2); BLOOD UREA NITROGEN 14 MG/DL (9-23); CALCIUM LEVEL 8.9 MG/DL (8.5-10.1); CARBON DIOXIDE LEVEL 25 MMOL/L (20-31); CHLORIDE LEVEL 104 MMOL/L (98-107); CHOLESTEROL LEVEL 113 MG/DL (<200); CHOLESTEROL RISK RATIO 2.09 (<5); CREATININE FOR GFR 0.78 MG/DL (0.70-1.30); GLOMERULAR FILTRATION RATE > 60.0 (>60); GLUCOSE, FASTING 97 MG/DL (60-100); LDL CHOLESTEROL 41.2 MG/DL (<100); POTASSIUM SERUM 4.2 MMOL/L (3.5-5.1); SODIUM LEVEL 136 MMOL/L (136-145); TOTAL PROTEIN 6.7 G/DL (5.7-8.2); TRIGLYCERIDES LEVEL 89 MG/DL (<150)
[2023-04-20 20:26] LABS: HEPATITIS B SURFACE ANTIGEN NEGATIVE (NEGATIVE)
[2023-04-20 20:55] LABS: HEPATITIS C VIRUS ABY INDEX > 11.00 INDEX (<0.8)
[2023-04-23 15:08] LABS: HEPATITIS C QUANTITATION 1290000 IU/mL (.)
== END ==
LOC: M LAB REF 17:15
PROVIDERS: ATTEND Nurse Practitioner Family
DX: B19.20 Unspecified viral hepatitis C without hepatic coma (principal); Z68.23 Body mass index [BMI] 23.0-23.9, adult; E55.9 Vitamin D deficiency, unspecified

== ENCOUNTER 2023-06-11 00:52 | Emergency (ER) | payer OTHER ==
[~2023-06-11] VITALS: Ht 172.7 cm; Wt 68.2 kg
[2023-06-11 00:53] VITALS: BP 139/95; O2SAT 96
[2023-06-11 01:12] VITALS: TEMP 98.9
[2023-06-11] MEDS ORDERED: NS 1,000 ML IV ONE (01:15)
[2023-06-11 01:37] LABS: BASO % 0.2 % (0.0-1.0); EOS % 0.2 % (0.0-3.0); HEMATOCRIT 43.9 % (42.0-52.0); HEMOGLOBIN 15.9 g/dl (13.5-17.5); LYMPH # 1.7 10^3/uL (1.5-5.0); LYMPH % 18.4 % (24.0-44.0); MEAN CORPUSCULAR HEMOGLOBIN 31.4 pg (27.0-33.0); MEAN CORPUSCULAR HGB CONC 36.2 g/dl (32.0-36.5); MEAN CORPUSCULAR VOLUME 86.8 fl (80.0-96.0); MONO # 0.9 10^3/uL (0.0-0.8); MONO % 9.7 % (2.0-8.0); NEUTROPHILS # 6.4 10^3/uL (1.5-8.5); NEUTROPHILS % 71.3 % (36.0-66.0); PLATELET COUNT, AUTOMATED 275 10^3/uL (150-450); RED BLOOD COUNT 5.06 10^6/uL (4.30-6.10)
[2023-06-11] MEDS ORDERED: CHARCOAL ACTIVATED LIQUID 25GM/120ML BTL PO ONE ×2 (01:55)
[2023-06-11 02:07] LABS: OSMOLALITY SERUM 286 MOSM/KG (275-295); RSV AMPLIFICATION NEGATIVE (NEGATIVE)
[2023-06-11 02:10] LABS: ETHYL ALCOHOL (ETHANOL) 0.003 % (0.000-0.010)
[2023-06-11 02:12] LABS: ALKALINE PHOSPHATASE 82 U/L (46-116); ALT/SGPT 53 U/L (7.0-40); AST/SGOT 60 U/L (<34); BILIRUBIN,DIRECT 1.4 MG/DL (<0.4); BILIRUBIN,TOTAL 2.3 MG/DL (0.3-1.2); BLOOD UREA NITROGEN 19 MG/DL (9-23); CALCIUM LEVEL 9.9 MG/DL (8.5-10.1); CARBON DIOXIDE LEVEL 26 MMOL/L (20-31); CHLORIDE LEVEL 98 MMOL/L (98-107); CREATININE FOR GFR 0.96 MG/DL (0.70-1.30); GLOMERULAR FILTRATION RATE > 60.0 (>60); GLUCOSE, FASTING 90 MG/DL (60-100); POTASSIUM SERUM 3.5 MMOL/L (3.5-5.1); SALICYLATE LEVEL < 3.0 MG/DL (<30); SODIUM LEVEL 136 MMOL/L (136-145); TOTAL PROTEIN 8.4 G/DL (5.7-8.2)
[2023-06-11 02:14] LABS: THYROID STIMULATING HORMONE 1.619 uIU/ML (0.55-4.78)
[2023-06-11 02:33] LABS: ACETAMINOPHEN LEVEL < 2.0 UG/ML (10.0-20.0); CPK CREATINE PHOSPHOKINASE 1787 U/L (46-171)
[2023-06-11] MEDS ORDERED: INVE234I IM (22:13)
== END 2023-06-11 02:00 | disposition left against medical advice (07) ==
LOC: M ED 00:52
DX: F19.10 Other psychoactive substance abuse, uncomplicated (principal); F31.9 Bipolar disorder, unspecified; B19.20 Unspecified viral hepatitis C without hepatic coma; F90.9 Attention-deficit hyperactivity disorder, unspecified type; Z79.899 Other long term (current) drug therapy

== ENCOUNTER 2023-06-11 20:27 | Inpatient (IN) | payer OTHER ==
[~2023-06-11] VITALS: Ht 172.7 cm; Wt 68.2 kg
[2023-06-11 21:08] LABS: HEMATOCRIT 42.2 % (42.0-52.0); HEMOGLOBIN 15.1 g/dl (13.5-17.5); MEAN CORPUSCULAR HEMOGLOBIN 31.1 pg (27.0-33.0); MEAN CORPUSCULAR HGB CONC 35.8 g/dl (32.0-36.5); PLATELET COUNT, AUTOMATED 208 10^3/uL (150-450); RED BLOOD COUNT 4.85 10^6/uL (4.30-6.10); WHITE BLOOD COUNT 4.8 10^3/uL (4.0-10.0)
[2023-06-11 21:32] LABS: ETHYL ALCOHOL (ETHANOL) < 0.003 % (0.000-0.010)
[2023-06-11 21:34] LABS: SALICYLATE LEVEL < 3.0 MG/DL (<30)
[2023-06-11 21:36] LABS: THYROID STIMULATING HORMONE 2.266 uIU/ML (0.55-4.78)
[2023-06-11 21:42] LABS: ACETAMINOPHEN LEVEL < 2.0 UG/ML (10.0-20.0); ALBUMIN 4.5 G/DL (3.2-5.2); ALKALINE PHOSPHATASE 74 U/L (46-116); ALT/SGPT 53 U/L (7.0-40); AST/SGOT 60 U/L (<34); BILIRUBIN,DIRECT 1.5 MG/DL (<0.4); BILIRUBIN,TOTAL 2.7 MG/DL (0.3-1.2); BLOOD UREA NITROGEN 16 MG/DL (9-23); CALCIUM LEVEL 9.5 MG/DL (8.5-10.1); CARBON DIOXIDE LEVEL 27 MMOL/L (20-31); CHLORIDE LEVEL 98 MMOL/L (98-107); CREATININE FOR GFR 0.82 MG/DL (0.70-1.30); GLOMERULAR FILTRATION RATE > 60.0 (>60); GLUCOSE, FASTING 74 MG/DL (60-100); POTASSIUM SERUM 4.3 MMOL/L (3.5-5.1); SODIUM LEVEL 134 MMOL/L (136-145); TOTAL PROTEIN 7.5 G/DL (5.7-8.2)
[2023-06-11] MEDS ORDERED: INVE234I IM (22:13)
[2023-06-11 22:25] LABS: BARBITURATES URINE NEGATIVE (NEGATIVE); BENZODIAZEPINES URINE NEGATIVE (NEGATIVE); COCAINE METABOLITE URINE NEGATIVE (NEGATIVE); METHADONE URINE NEGATIVE (NEGATIVE); OPIATES URINE NEGATIVE (NEGATIVE); PHENCYCLIDINE URINE NEGATIVE (NEGATIVE)
[2023-06-11 22:27] LABS: AMPHETAMINES LEVEL URINE POSITIVE (NEGATIVE); CANNABINOIDS URINE POSITIVE (NEGATIVE)
[2023-06-11] MEDS ORDERED: MED REC IN PROGRESS XX SCH (23:25)
[2023-06-12] MEDS: NICOTINE 21MG/24HR 1 EA TRANSDERMAL TD SCH (09:00)
[2023-06-12] MEDS ORDERED: HOME MED LIST COMPLETE! XX SCH (12:50)
[2023-06-12] MEDS ORDERED: MAALOX 30 ML SUSP *UDC PO PRN (13:15)
[2023-06-12] MEDS ORDERED: diphenhydrAMINE 25MG CAP PO PRN (13:15)
[2023-06-12] MEDS ORDERED: OLANZapine ORAL DISINTEGRATING TAB 5MG PO PRN (13:15)
[2023-06-12] MEDS ORDERED: IBUPROFEN 400MG TAB PO PRN (13:15)
[2023-06-12] MEDS ORDERED: MOM 30ML SUSPENSION UDC PO PRN (13:15)
[2023-06-12] MEDS ORDERED: ACETAMINOPHEN TAB 650MG DOSE (2X325MG) PO PRN (13:15)
[2023-06-12 15:12] VITALS: BP 113/80; TEMP 97.2; O2SAT 96
[2023-06-12] MEDS ORDERED: PALIPERIDONE PAL 234MG/1.5ML INJ (INVEGA)(FREE PSY INPT ONLY) IM ONE (16:00)
[2023-06-13 06:25] VITALS: BP 94/58; TEMP 98.5; O2SAT 98
[2023-06-13] MEDS: NICOTINE 21MG/24HR 1 EA TRANSDERMAL TD SCH (09:40)
[2023-06-13 17:55] VITALS: BP 94/51; TEMP 98.5; O2SAT 97
[2023-06-13] MEDS: traZODone 50 MG TAB PO PRN (21:44)
[2023-06-14 06:32] VITALS: BP 101/58; TEMP 97.3; O2SAT 97
[2023-06-14] MEDS: NICOTINE 21MG/24HR 1 EA TRANSDERMAL TD SCH (09:45)
[2023-06-14 16:39] VITALS: BP 107/63; TEMP 98.6
[2023-06-14] MEDS: traZODone 50 MG TAB PO PRN (21:21)
[2023-06-15 06:15] VITALS: BP 113/63; TEMP 98; O2SAT 99
[2023-06-15] MEDS: NICOTINE 21MG/24HR 1 EA TRANSDERMAL TD SCH (10:13)
[2023-06-15 18:17] VITALS: BP 112/72; TEMP 97.4
[2023-06-15] MEDS: traZODone 50 MG TAB PO PRN (20:23)
[2023-06-16 06:15] VITALS: BP 93/54; TEMP 97.4; O2SAT 96
[2023-06-16] MEDS: NICOTINE 21MG/24HR 1 EA TRANSDERMAL TD SCH (09:00)
[2023-06-16 19:03] VITALS: BP 89/54; TEMP 97.6
[2023-06-17 06:13] VITALS: BP 84/41; TEMP 97.2; O2SAT 98
[2023-06-17 07:15] VITALS: BP 92/46
[2023-06-17 09:00] VITALS: BP 112/73
[2023-06-17] MEDS: NICOTINE 21MG/24HR 1 EA TRANSDERMAL TD SCH (09:00)
[2023-06-17 09:17] VITALS: BP_SYST 105; BP_SYST 114; BP_DIAS 60; BP_DIAS 75; BP_DIAS 76
[2023-06-17] MEDS ORDERED: MIDODRINE 5 MG TAB PO PRN (10:15)
[2023-06-17] MEDS ORDERED: INVE234I IM (11:38)
[2023-06-17] MEDS ORDERED: NICO21PAT TD (11:38)
== END 2023-06-17 13:04 | disposition home or self-care (01) | DRG 753 ==
LOC: M ED 20:27 → M ED INP 06-12 13:15 → M PSY 06-12 14:38
PROVIDERS: ADMIT Student in an Organized Health Care Education/Training Program; ATTEND Student in an Organized Health Care Education/Training Program
DX: F31.9 Bipolar disorder, unspecified (principal); F19.14 Other psychoactive substance abuse with psychoactive substance-induced mood disorder; R45.851 Suicidal ideations; F17.210 Nicotine dependence, cigarettes, uncomplicated; K73.9 Chronic hepatitis, unspecified; Z79.899 Other long term (current) drug therapy; Z20.822 Contact with and (suspected) exposure to COVID-19

== ENCOUNTER 2023-09-12 13:02 | Emergency (ER) | payer MEDICAID, OTHER ==
[~2023-09-12] VITALS: Ht 172.7 cm; Wt 63.3 kg
[2023-09-12 13:02] VITALS: BP 123/82; TEMP 97.8; O2SAT 100
[~2023-09-12 13:02] MED LIST changes: +INVE234I IM; +NICO21PAT TD
== END 2023-09-12 13:07 | disposition left against medical advice (07) ==
LOC: M ED 13:02
DX: Z53.21 Procedure and treatment not carried out due to patient leaving prior to being seen by health care provider (principal)

== ENCOUNTER 2023-09-12 17:21 | Emergency (ER) | payer OTHER ==
[~2023-09-12] VITALS: Ht 172.7 cm; Wt 63.3 kg
[2023-09-12] MEDS ORDERED: methocarbamoL 500 MG TAB PO ONE (18:10)
[2023-09-12] MEDS ORDERED: ACETAMINOPHEN 500 MG TAB PO ONE (18:10)
[2023-09-12 18:53] LABS: BASO % 0.5 % (0.0-1.0); EOS % 0.3 % (0.0-3.0); HEMOGLOBIN 13.4 g/dl (13.5-17.5); LYMPH # 1.2 10^3/uL (1.5-5.0); LYMPH % 32.4 % (24.0-44.0); MEAN CORPUSCULAR VOLUME 85.9 fl (80.0-96.0); MONO # 0.3 10^3/uL (0.0-0.8); MONO % 8.2 % (2.0-8.0); NEUTROPHILS # 2.1 10^3/uL (1.5-8.5); NEUTROPHILS % 58.3 % (36.0-66.0); PLATELET COUNT, AUTOMATED 220 10^3/uL (150-450); RED BLOOD COUNT 4.19 10^6/uL (4.30-6.10); WHITE BLOOD COUNT 3.6 10^3/uL (4.0-10.0)
[2023-09-12 18:59] LABS: MEAN CORPUSCULAR HGB CONC 37.2 g/dl (32.0-36.5)
[2023-09-12 19:08] LABS: CK-MB VALUE MASS < 1.0 NG/ML (<3.6)
[2023-09-12 19:10] LABS: BLOOD UREA NITROGEN 9 MG/DL (9-23); CARBON DIOXIDE LEVEL 31 MMOL/L (20-31); CHLORIDE LEVEL 103 MMOL/L (98-107); CPK CREATINE PHOSPHOKINASE 83 U/L (46-171); CREATININE FOR GFR 0.76 MG/DL (0.70-1.30); GLOMERULAR FILTRATION RATE > 60.0 (>60); GLUCOSE, FASTING 97 MG/DL (60-100); POTASSIUM SERUM 3.3 MMOL/L (3.5-5.1); SODIUM LEVEL 141 MMOL/L (136-145)
[2023-09-12 19:12] LABS: FREE T4 1.34 NG/DL (0.89-1.76); THYROID STIMULATING HORMONE 1.549 uIU/ML (0.55-4.78)
[2023-09-12 20:16] LABS: CK-MB VALUE MASS < 1.0 NG/ML (<3.6); CPK CREATINE PHOSPHOKINASE 72 U/L (46-171); MB/CK RELATIVE INDEX 1.38 (< OR =4)
[2023-09-12 20:35] VITALS: BP 117/61; TEMP 97.2; O2SAT 99
== END 2023-09-12 20:45 | disposition home or self-care (01) ==
LOC: M ED 17:21
DX: R07.89 Other chest pain (principal); K21.9 Gastro-esophageal reflux disease without esophagitis; Z86.19 Personal history of other infectious and parasitic diseases; F31.9 Bipolar disorder, unspecified; F90.9 Attention-deficit hyperactivity disorder, unspecified type; F60.0 Paranoid personality disorder; F17.200 Nicotine dependence, unspecified, uncomplicated; F12.10 Cannabis abuse, uncomplicated; Z79.899 Other long term (current) drug therapy

== ENCOUNTER 2023-09-15 06:40 | Emergency (ER) | payer OTHER ==
[~2023-09-15] VITALS: Ht 172.7 cm; Wt 65.9 kg
[2023-09-15] MEDS ORDERED: IBUP-1022 PO (09:35)
[2023-09-15 09:55] VITALS: BP 111/71; TEMP 97.8; O2SAT 99
== END 2023-09-15 10:00 | disposition home or self-care (01) ==
LOC: M ED 06:40 → EDBD 06:40 → M ED 10:00
DX: S13.4XXA Sprain of ligaments of cervical spine, initial encounter (principal); S09.90XA Unspecified injury of head, initial encounter; W08.XXXA Fall from other furniture, initial encounter; Y92.9 Unspecified place or not applicable; Z79.899 Other long term (current) drug therapy

== ENCOUNTER 2023-12-11 09:43 | Emergency (ER) | payer OTHER ==
[~2023-12-11] VITALS: Ht 172.7 cm; Wt 73.0 kg
[~2023-12-11 09:43] MED LIST changes: +IBUP-1022 PO
[2023-12-11] MEDS ORDERED: ABIL10TA9 PO (09:54)
[2023-12-11 10:34] LABS: HEMATOCRIT 41.6 % (42.0-52.0); MEAN CORPUSCULAR HEMOGLOBIN 31.2 pg (27.0-33.0); MEAN CORPUSCULAR HGB CONC 36.1 g/dl (32.0-36.5); MEAN CORPUSCULAR VOLUME 86.5 fl (80.0-96.0); PLATELET COUNT, AUTOMATED 221 10^3/uL (150-450); RED BLOOD COUNT 4.81 10^6/uL (4.30-6.10); WHITE BLOOD COUNT 2.6 10^3/uL (4.0-10.0)
[2023-12-11 11:06] LABS: ETHYL ALCOHOL (ETHANOL) 0.005 % (0.000-0.010)
[2023-12-11 11:07] LABS: ALBUMIN 4.3 G/DL (3.2-5.2); ALKALINE PHOSPHATASE 77 U/L (46-116); ALT/SGPT 22 U/L (7.0-40); AST/SGOT 11 U/L (<34); BILIRUBIN,DIRECT 0.3 MG/DL (<0.4); BILIRUBIN,TOTAL 0.7 MG/DL (0.3-1.2); BLOOD UREA NITROGEN 12 MG/DL (9-23); CALCIUM LEVEL 9.2 MG/DL (8.5-10.1); CARBON DIOXIDE LEVEL 33 MMOL/L (20-31); CHLORIDE LEVEL 99 MMOL/L (98-107); CREATININE FOR GFR 0.76 MG/DL (0.70-1.30); GLOMERULAR FILTRATION RATE > 60.0 (>60); GLUCOSE, FASTING 110 MG/DL (60-100); SALICYLATE LEVEL < 3.0 MG/DL (<30); SODIUM LEVEL 137 MMOL/L (136-145); TOTAL PROTEIN 7.4 G/DL (5.7-8.2)
[2023-12-11 11:10] LABS: THYROID STIMULATING HORMONE 1.641 uIU/ML (0.55-4.78)
[2023-12-11 13:06] LABS: BARBITURATES URINE NEGATIVE (NEGATIVE); METHADONE URINE NEGATIVE (NEGATIVE); OPIATES URINE NEGATIVE (NEGATIVE); PHENCYCLIDINE URINE NEGATIVE (NEGATIVE)
[2023-12-11 13:07] LABS: BENZODIAZEPINES URINE NEGATIVE (NEGATIVE)
[2023-12-11 13:08] LABS: AMPHETAMINES LEVEL URINE POSITIVE (NEGATIVE); CANNABINOIDS URINE POSITIVE (NEGATIVE); COCAINE METABOLITE URINE POSITIVE (NEGATIVE)
[2023-12-11 15:20] VITALS: BP 133/60; TEMP 97.8; O2SAT 99
== END 2023-12-11 15:26 | disposition home or self-care (01) ==
LOC: M ED 09:43
DX: U07.1 COVID-19 (principal); F14.10 Cocaine abuse, uncomplicated; F39 Unspecified mood [affective] disorder; F10.10 Alcohol abuse, uncomplicated; Z79.1 Long term (current) use of non-steroidal anti-inflammatories (NSAID); Z79.899 Other long term (current) drug therapy

== ENCOUNTER 2024-04-20 21:33 | Emergency (ER) | payer OTHER ==
[~2024-04-20] VITALS: Ht 172.7 cm; Wt 68.0 kg
[~2024-04-20 21:33] MED LIST changes: +ABIL10TA9 PO; +DOXY-323 PO; -DOXY-443 PO
[2024-04-20 22:42] LABS: HEMATOCRIT 38.4 % (42.0-52.0); HEMOGLOBIN 13.7 g/dl (13.5-17.5); MEAN CORPUSCULAR HGB CONC 35.7 g/dl (32.0-36.5); MEAN CORPUSCULAR VOLUME 89.7 fl (80.0-96.0); PLATELET COUNT, AUTOMATED 181 10^3/uL (150-450); RED BLOOD COUNT 4.28 10^6/uL (4.30-6.10); WHITE BLOOD COUNT 2.7 10^3/uL (4.0-10.0)
[2024-04-20 22:57] LABS: BARBITURATES URINE NEGATIVE (NEGATIVE); BENZODIAZEPINES URINE NEGATIVE (NEGATIVE); COCAINE METABOLITE URINE NEGATIVE (NEGATIVE); METHADONE URINE NEGATIVE (NEGATIVE); OPIATES URINE NEGATIVE (NEGATIVE); PHENCYCLIDINE URINE NEGATIVE (NEGATIVE)
[2024-04-20 22:58] LABS: AMPHETAMINES LEVEL URINE POSITIVE (NEGATIVE); CANNABINOIDS URINE POSITIVE (NEGATIVE)
[2024-04-20 22:59] LABS: ETHYL ALCOHOL (ETHANOL) < 0.003 % (0.000-0.010)
[2024-04-20 23:01] LABS: ALBUMIN 4.2 G/DL (3.2-5.2); ALKALINE PHOSPHATASE 64 U/L (46-116); ALT/SGPT 9 U/L (7.0-40); AST/SGOT < 8 U/L (<34); BILIRUBIN,DIRECT 0.2 MG/DL (<0.4); BILIRUBIN,TOTAL 0.5 MG/DL (0.3-1.2); BLOOD UREA NITROGEN 8 MG/DL (9-23); CALCIUM LEVEL 9.4 MG/DL (8.5-10.1); CARBON DIOXIDE LEVEL 33 MMOL/L (20-31); CHLORIDE LEVEL 106 MMOL/L (98-107); GLOMERULAR FILTRATION RATE > 60.0 (>60); GLUCOSE, FASTING 83 MG/DL (60-100); POTASSIUM SERUM 3.9 MMOL/L (3.5-5.1); SALICYLATE LEVEL < 3.0 MG/DL (<30); SODIUM LEVEL 142 MMOL/L (136-145); TOTAL PROTEIN 6.7 G/DL (5.7-8.2)
[2024-04-20 23:03] LABS: THYROID STIMULATING HORMONE 1.243 uIU/ML (0.55-4.78)
[2024-04-21] MEDS ORDERED: HOME MED LIST COMPLETE! XX SCH (01:20)
[2024-04-21 12:03] VITALS: BP 107/78; TEMP 97.2; O2SAT 98
== END 2024-04-21 12:05 | disposition home or self-care (01) ==
LOC: M ED 21:33
DX: F15.180 Other stimulant abuse with stimulant-induced anxiety disorder (principal); F31.9 Bipolar disorder, unspecified; F90.9 Attention-deficit hyperactivity disorder, unspecified type; Z86.19 Personal history of other infectious and parasitic diseases

== ENCOUNTER 2024-04-29 03:38 | Emergency (ER) | payer OTHER ==
[~2024-04-29] VITALS: Ht 172.7 cm; Wt 60.8 kg
[2024-04-29 03:39] VITALS: BP 118/81; TEMP 97.8; O2SAT 97
== END 2024-04-29 04:01 | disposition left against medical advice (07) ==
LOC: M ED 03:38
DX: Z53.21 Procedure and treatment not carried out due to patient leaving prior to being seen by health care provider (principal)